=== PATIENT | male | born 1980 | race Caucasian/White ===

== ENCOUNTER 2018-06-12 02:18 | Outpatient (CLI) | payer MEDICAID, SELFPAY ==
[2018-06-13 14:10] LABS: Lyme Ab w Rflx to Lyme Confirm Negative
== END 2018-06-12 02:38 ==
PROVIDERS: PCP Family Medicine; Visit Provider Family Medicine
DX: W57.XXXA Bitten or stung by nonvenomous insect and other nonvenomous arthropods, initial encounter (principal); T14.8XXA Other injury of unspecified body region, initial encounter
CPT/HCPCS: 36415; 86618

== ENCOUNTER 2019-10-12 00:10 | Outpatient (CLI) | payer MEDICAID, SELFPAY ==
[2019-10-16 12:46] LABS: Testosterone, Total 114 ng/dL (240-950)
== END 2019-10-12 00:30 ==
PROVIDERS: PCP Family Medicine; Visit Provider Family Medicine
DX: E29.1 Testicular hypofunction (principal)
CPT/HCPCS: 36415; 84403

== ENCOUNTER 2019-11-12 09:02 | Outpatient (CLI) | payer MEDICAID, SELFPAY ==
[2019-11-15 07:39] LABS: Testosterone, Total 328 ng/dL (240-950)
== END 2019-11-12 09:22 ==
PROVIDERS: PCP Family Medicine; Visit Provider Family Medicine
DX: E29.1 Testicular hypofunction (principal)
CPT/HCPCS: 36415; 84403

== ENCOUNTER 2020-07-03 04:04 | Outpatient (CLI) | payer MEDICAID, SELFPAY ==
[2020-07-03 07:23] LABS: HCT 46.5 % (40.0-50.0); HGB 15.9 g/dL (13.5-17.5); MCH 31.4 pg (27.0-33.0); MCHC 34.2 % (32.0-36.0); MCV 91.7 fL (80-95); MPV 9.5 fL (8.0-11.0); Platelet Count 221 10^3/uL (130-400); RBC 5.07 10^6/uL (4.36-5.78); RDW 13.5 % (11.8-14.1); RDW-SD 45.1 fL; WBC 7.14 10^3/uL (4.4-10.8)
[2020-07-03 08:52] LABS: ALT 70 U/L (16-63); AST 40 U/L (15-37); Alkaline Phosphatase 99 U/L (46-116); Anion Gap 9.3 mmol/L (3-11); BUN 19 mg/dL (7-18); Bilirubin, Total 0.4 mg/dL (0.2-1.0); CO2 27.7 mmol/L (21.0-32.0); CREATININE 1.29 mg/dL (0.70-1.30); Calcium 9.3 mg/dL (8.5-10.1); Calculated LDL 163 mg/dL (<100); Chloride 101 mmol/L (98-107); Cholesterol 274 mg/dL (<200); Glucose 70 mg/dL (74-106); HDL Cholesterol 43 mg/dL (40-60); Potassium 4.2 mmol/L (3.5-5.1); Sodium 138 mmol/L (136-145); Total Protein 7.3 g/dL (6.4-8.2); Triglyceride 340 mg/dL (<150)
[2020-07-03 18:55] LABS: PSA, Screening 0.8 ng/mL (0.0-2.5)
[2020-07-05 13:25] LABS: Testosterone, Total 143 ng/dL (240-950)
== END 2020-07-03 04:24 ==
PROVIDERS: PCP Family Medicine; Visit Provider Family Medicine
DX: I10 Essential (primary) hypertension (principal); E29.1 Testicular hypofunction; Z80.42 Family history of malignant neoplasm of prostate; Z12.5 Encounter for screening for malignant neoplasm of prostate
CPT/HCPCS: 36415; 80053; 80061; 84153; 84403; 85027

== ENCOUNTER 2020-09-17 08:06 | Outpatient (CLI) | payer MEDICAID, SELFPAY ==
[2020-09-18 14:42] LABS: COVID-19 RT-PCR UVMMC Result Negative (Negative)
== END 2020-09-17 08:26 ==
PROVIDERS: PCP Family Medicine; Visit Provider Family Medicine
DX: Z20.828 Contact with and (suspected) exposure to other viral communicable diseases (principal)
CPT/HCPCS: U0003

== ENCOUNTER 2020-10-20 09:30 | Outpatient (CLI) | payer MEDICAID, SELFPAY ==
[2020-10-21 15:50] LABS: COVID-19 RT-PCR UVMMC Result Negative (Negative)
== END 2020-10-20 09:31 | disposition home or self-care (01) ==
LOC: LBO 09:30
PROVIDERS: PCP Family Medicine; Visit Provider Family Medicine
DX: Z20.822 Contact with and (suspected) exposure to COVID-19 (principal)
CPT/HCPCS: U0003

== ENCOUNTER 2020-10-24 02:58 | Outpatient (CLI) | payer MEDICAID, SELFPAY ==
--- NOTE | 2020-10-24 06:30 | DI.RAD_ITS ---
EXAM: XR CHEST 2V PA LATERAL CLINICAL HISTORY: Cough, wheezing; COVID negative,ACUTE BRONCHITIS, J20.9 TECHNIQUE: 2D digital imaging was performed. COMPARISON: CT CHEST WITH CONTRAST from 05/12/2016 FINDINGS: MEDIASTINUM: Normal. HEART: Normal. PULMONARY VASCULATURE: Normal. LUNGS: Clear. PLEURAL SPACE: No pleural effusion or pneumothorax. BONE:Normal. OTHER FINDINGS:Normal. IMPRESSION: No acute pulmonary findings. DATA REPOSITORY: RADIATION DOSE DELIVERED:
== END 2020-10-24 02:59 ==
LOC: DI 02:59
PROVIDERS: PCP Family Medicine; Visit Provider Family Medicine
DX: J20.9 Acute bronchitis, unspecified (principal); R05 Cough; R06.02 Shortness of breath
CPT/HCPCS: 71046

== ENCOUNTER 2020-11-06 18:34 | Emergency (ER) | payer MEDICAID, SELFPAY ==
[2020-11-06 18:37] VITALS: BP 152/90; PULSE 117; RESP 18; TEMP 36.6; O2SAT 96
--- NOTE | 2020-11-06 19:16 | W.ED.GENAD ---
Discharge Plan Disposition Patient Disposition: HOME Condition: Good Discharge Details Clinical Impression: Cellulitis Primary Care Provider: Benigno Schroeder ED Provider: Amrita Quan Home Meds and New Rx's Prescriptions: New doxycycline monohydrate 100 mg capsule 100 mg PO BID Qty: 6 RF: 0 No Action valsartan 80 mg tablet 80 mg PO DAILY Qty: 30 RF: 11 azithromycin 500 mg tablet See Rx Instructions PO .COMPLEX Qty: 5 RF: 0 amoxicillin 500 mg capsule 1,000 mg PO TID Qty: 42 RF: 0 doxycycline hyclate 100 mg capsule 100 mg PO BID Qty: 14 RF: 0 albuterol sulfate [Proventil HFA] 90 mcg/actuation HFA aerosol inhaler 2 puff inhalation Q6H PRN (Reason: shortness of breath or wheezing) Qty: 8.5 RF: 0 nicotine (polacrilex) 2 mg gum 2 mg BC Q2H Qty: 50 RF: 0 fluticasone propionate 50 mcg/actuation spray,suspension 2 spray JESSE DAILY PRN (Reason: allergy symptoms) Qty: 18.2 RF: 2 atorvastatin 20 mg tablet 20 mg PO QHS Qty: 30 RF: 11 methadone 10 mg/mL concentrate 55 mg PO DAILY RF: 0 nicotine 21 mg/24 hr patch 24 hour 1 patch TD DAILY Qty: 28 RF: 1 albuterol sulfate [ProAir HFA] 90 mcg/actuation HFA aerosol inhaler 2 puff Inhalation Q6H PRN Qty: 1 RF: 4 sildenafil [Viagra] 100 mg tablet 100 mg PO As Directed Qty: 3 RF: 1 (DME) Easy Touch SheathLock Syrg-Ndl 3 mL 22 gauge x 1 1/2 syringe See Rx Instructions .ROUTE .MEDSUPPLY Qty: 6 RF: 3 testosterone cypionate 200 mg/mL oil 300 mg IM .COMPLEX Qty: 3 RF: 5 (DME) BD Regular Bevel Cubero 25 gauge x 5/8 needle See Rx Instructions .ROUTE .MEDSUPPLY Qty: 100 RF: 4 omeprazole 20 mg capsule,delayed release(DR/EC) 20 mg PO DAILY Qty: 90 RF: 3 Discharge Instructions Instructions: Cellulitis (ED) Additional Instructions: warm compresses 20 min/hr elevate leg and refrain from using recheck in 48 hours take antibiotics as prescribed (current) extend the doxycycline for 10 days yogurt daily while on antibiotics return earlier with spreading redness, fever, worsening pain tylenol as needed for pain Stand Alone Forms: Work Release Discharge Data Discharge Date/Time-TO BE ENTERED AT DEPARTURE: 11/06/20 19:35 Medical Decision Making Patient is quite anxious, and I suspect this is why he is tachycardic, 1 and 1 there is prior vitals, he is occasionally tachycardic I do not think this is related to sepsis or pulmonary embolism clinically Patient is not hypoxic, he has no chest pain or short of breath And interactive temperature in 2 separate occasions and it was 99.1 ?F max He is currently taking doxycycline 1, bronchitis I clinically appropriate treatment Aortic stenosis 70 to 10 days and he will follow complex 48-hour recheck On his medication for approximately 24 hours Work note applied for 2 days but should not be weightbearing and elevating his leg Return to discuss with patient extensively standing 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 HPI 40-year-old gentleman with history of arthritis, hypertension, hyperlipidemia and left hip posterolateral presents with report of left lower extremity swelling. Patient states he injected his difficulty with testosterone on Tuesday he states but there was no issue until today after his dog jumped on him. He states that while he was at work he started noticing a large lump on his thigh and significantly increased pain and redness to the area. He denies any fever or chills. He denies history of diabetes. He denies any chest pain or shortness of breath. He did take aspirin prior to arrival for pain. He also forgot Narcan today. He is currently taking methadone denies any illicit drug use. General Date/Time Provider Initiated Documentation: 11/06/20 18:45. Related Data Home Medications Medication Instructions Recorded Confirmed methadone 10 mg/mL oral concentrate 55 mg PO DAILY ml 10/13/18 11/04/20 nicotine 21 mg/24 hr daily 1 patch TD DAILY #28 each 04/20/19 11/04/20 transdermal patch nicotine (polacrilex) 2 mg gum 2 mg BC Q2H #50 each 08/07/19 11/04/20 fluticasone propionate 50 2 spray JESSE DAILY PRN #18.2 ml 10/29/19 11/04/20 mcg/actuation nasal spray,suspension albuterol sulfate 90 mcg/actuation 2 puff INHALATION Q6H PRN #1 10/31/19 11/04/20 aerosol inhaler inhaler valsartan 80 mg tablet 80 mg PO DAILY #30 tab 06/23/20 11/04/20 atorvastatin 20 mg tablet 20 mg PO QHS #30 tab 07/28/20 11/04/20 sildenafil 100 mg tablet 100 mg PO As Directed #3 tab-cap 09/08/20 11/04/20 syringe with needle, safety 3 mL #6 each 09/09/20 11/04/20 22 gauge x 1 1/2 testosterone cypionate 200 mg/mL 300 mg IM .COMPLEX #3 ml 09/09/20 11/06/20 intramuscular oil needle (disp) 25 gauge 25 gauge x #100 each 09/11/20 11/04/20 5/8 omeprazole 20 mg capsule,delayed 20 mg PO DAILY #90 tab-cap 09/19/20 11/04/20 release azithromycin 500 mg tablet See Rx Instructions PO .COMPLEX #5 10/23/20 11/04/20 tab albuterol sulfate 90 mcg/actuation 2 puff INHALATION Q6H PRN #8.5 g 11/04/20 11/04/20 aerosol inhaler amoxicillin 500 mg capsule 1,000 mg PO TID #42 cap 11/04/20 11/06/20 doxycycline hyclate 100 mg capsule 100 mg PO BID #14 cap 11/04/20 11/06/20 doxycycline monohydrate 100 mg PO BID #6 cap 11/06/20 Previous Rx's Medication Instructions Recorded nicotine 21 mg/24 hr daily 1 patch TD DAILY #28 each 04/20/19 transdermal patch nicotine (polacrilex) 2 mg gum 2 mg BC Q2H #50 each 08/07/19 fluticasone propionate 50 2 spray JESSE DAILY PRN #18.2 ml 10/29/19 mcg/actuation nasal spray,suspension albuterol sulfate 90 mcg/actuation 2 puff INHALATION Q6H PRN #1 10/31/19 aerosol inhaler inhaler valsartan 80 mg tablet 80 mg PO DAILY #30 tab 06/23/20 atorvastatin 20 mg tablet 20 mg PO QHS #30 tab 07/28/20 sildenafil 100 mg tablet 100 mg PO As Directed #3 tab-cap 09/08/20 syringe with needle, safety 3 mL #6 each 09/09/20 22 gauge x 1 1/2 testosterone cypionate 200 mg/mL 300 mg IM .COMPLEX #3 ml 09/09/20 intramuscular oil needle (disp) 25 gauge 25 gauge x #100 each 09/11/20 5/8 omeprazole 20 mg capsule,delayed 20 mg PO DAILY #90 tab-cap 09/19/20 release azithromycin 500 mg tablet See Rx Instructions PO .COMPLEX #5 10/23/20 tab albuterol sulfate 90 mcg/actuation 2 puff INHALATION Q6H PRN #8.5 g 11/04/20 aerosol inhaler amoxicillin 500 mg capsule 1,000 mg PO TID #42 cap 11/04/20 doxycycline hyclate 100 mg capsule 100 mg PO BID #14 cap 11/04/20 doxycycline monohydrate 100 mg PO BID #6 cap 11/06/20 Allergies Allergy/AdvReac Type Severity Reaction Status Date / Time amlodipine Allergy Intermediate Drowsiness, Verified 11/06/20 18:45 chest pain lisinopril AdvReac Intermediate Cough Verified 11/06/20 18:45 General Stated Complaint: Cellulitis DUNG: 3 Review of Systems Narrative: Review of systems negative x7 aside from where indicated in HPI, specifically no fever, chills, chest pain, shortness of breath [facility] Medical History (Updated 11/06/20 @ 19:23 by BRISA Vanegas) Acute bronchitis Allergic rhinitis Depressive disorder Episodic cluster headache, not intractable (07/26/17) Essential hypertension (04/12/17) Gastroesophageal reflux disease without esophagitis (03/30/16) Hyperhidrosis Murmur, cardiac Congenital Symptoms of allergic rhinioconjunctivitis Testicular hypofunction (05/26/12) Testosterone deficiency in male Tobacco dependence Surgical History Appendectomy Pts states year or surgery was 2007 or 2008 EXCISION MASS, LIF H/O hand surgery Hx of tonsillectomy PROCEDURES OTHER REPAIR OF KNEE, 1998 Family History Mother Heart disease Father , age 70 Essential hypertension Diabetes Hyperlipidemia Lung cancer Sister Diabetes Brother Testicular cancer Maternal Grandfather Throat cancer Paternal Grandfather Diabetes Maternal Grandmother No problems noted. Paternal Grandmother Breast cancer Sister No problems noted. Social History Smoking/Tobacco Use Status: Current every day Tobacco Type: smokeless tobacco Smokeless tobacco user: chewing tobacco Quit status: considering quitting Second Hand Exposure: Yes Smoking risk assessment performed?: Yes Alcohol Intake: current Alcohol Intake frequency: a few times a week Drug use: Current Sobriety Substance use type: does not use and other Details: Methadone rx Details: methadone client Caregiver/Support person: No Household members: other Details: Mother Housing: house Communication Needs: None Do you need help understanding health information?: Never current occupation: [employer] Pets and animals: Yes Pets and animals: dog(s) Do you think of yourself as: straight/heterosexual Current gender identity: male What is your relationship status?: never How often do you talk on the phone with friends or family?: three or more times per week How often do you get together with friends or relatives?: twice per week How often do you attend jain or church services?: decline to answer Do you belong to any clubs or organized social groups?: no Panel score (0-1 are the most socially isolated patients): 1 What type of physical activity do you participate in: none Duration: 15-30 minutes/day Frequency: 5-6 times per week Korina/Scientologist: Rastafari Special korina needs: No Seatbelt use: always Helmet use: Yes Helmet use: always 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 Approximately 6 x 6 area of induration and swelling with overlying pink discoloration, ecchymosis medially Extrem Other: Distal pulses intact/neurovascularly intact Course Vital Signs Vital signs: Vital Signs Temperature 36.6 C 02/25/21 18:37 Pulse 117 H 11/06/20 18:37 Respiratory Rate 18 11/06/20 18:37 Blood Pressure 152/90 H 11/06/20 18:37 Pulse Oximetry 96 11/06/20 18:37 Temperature 36.6 C 11/06/20 18:37 Temperature Source Skin 11/06/20 18:37 Pulse 117 H 11/06/20 18:37 Respiratory Rate 18 11/06/20 18:37 Respiratory Effort 11/06/20 18:43 Blood Pressure 152/90 H 11/06/20 18:37 Blood Pressure Position Sitting 11/06/20 18:37 Pulse Oximetry 96 11/06/20 18:37 Oxygen Delivery Method Room Air 11/06/20 18:37 Oxygen Flow Rate 0 11/06/20 18:37 Pain Level 7 11/06/20 18:37 Comment excedrin earlier today 11/06/20 18:37
[2020-11-06 19:28] VITALS: BP 148/89; PULSE 111; RESP 16; TEMP 36.5; O2SAT 95
== END 2020-11-06 19:35 | disposition home or self-care (01) ==
PROVIDERS: Emergency Provider Physician Assistant; PCP Family Medicine
DX: L03.116 Cellulitis of left lower limb (principal); R00.0 Tachycardia, unspecified
CPT/HCPCS: 99283

== ENCOUNTER 2021-01-02 10:06 | Outpatient (CLI) | payer MEDICAID, SELFPAY ==
[2021-01-03 12:23] LABS: COVID-19 RT-PCR UVMMC Result Negative (Negative)
== END 2021-01-02 10:07 | disposition home or self-care (01) ==
PROVIDERS: PCP Family Medicine; Visit Provider Family Medicine
DX: Z20.822 Contact with and (suspected) exposure to COVID-19 (principal); R50.9 Fever, unspecified; R68.83 Chills (without fever)
CPT/HCPCS: U0003

== ENCOUNTER 2021-01-21 03:09 | Outpatient (CLI) | payer MEDICAID, SELFPAY ==
[2021-01-21 11:23] LABS: ALT 64 U/L (16-63); AST 24 U/L (15-37); Albumin 4.2 g/dL (3.4-5.0); Alkaline Phosphatase 111 U/L (46-116); Bilirubin, Direct 0.1 mg/dL (0.0-0.2); Bilirubin, Total 0.7 mg/dL (0.2-1.0); Total Protein 7.6 g/dL (6.4-8.2)
[2021-01-21 11:34] LABS: Calculated LDL 208 mg/dL (<100); Cholesterol 308 mg/dL (<200); HDL Cholesterol 58 mg/dL (40-60); Triglyceride 213 mg/dL (<150)
== END 2021-01-21 03:10 | disposition home or self-care (01) ==
LOC: LBO 03:09
PROVIDERS: PCP Family Medicine; Visit Provider Family Medicine
DX: E78.5 Hyperlipidemia, unspecified (principal); R79.89 Other specified abnormal findings of blood chemistry
CPT/HCPCS: 36415; 80061; 80076

== ENCOUNTER 2021-01-29 14:18 | Outpatient (CLI) | payer MEDICAID, SELFPAY ==
--- NOTE | 2021-01-29 14:15 | RT.EKG_ITS ---
APPROVED REPORT Exam: Resting ECG Reason for Exam: High BP Patient Location: O HR:105 bpm ECG Measurements Heart Rate 105 AXIS IL 144 P 69 QRSd 99 QRS 38 QT 337 T 31 QTc 446 Conclusion Sinus tachycardia...rate> 99 Consider left ventricular hypertrophy...(S V1+R V5/V6) >3.50mV
== END 2021-01-29 14:19 | disposition home or self-care (01) ==
LOC: DI.CM 14:19
PROVIDERS: PCP Nurse Practitioner; Visit Provider Nurse Practitioner Family
DX: J06.9 Acute upper respiratory infection, unspecified (principal)
CPT/HCPCS: 93010

== ENCOUNTER 2021-01-29 15:20 | Emergency (ER) | payer MEDICAID, SELFPAY ==
[2021-01-29] VITALS (37 sets, daily range): BP systolic 138–167; BP diastolic 81–137; PULSE 86–114; RESP 12–27; TEMP 36.5–37.2; O2SAT 93–98
--- NOTE | 2021-01-29 15:40 | W.ED.GENAD ---
Discharge Plan Disposition Patient Disposition: AGAINST MEDICAL ADVICE Condition: Stable Discharge Details Clinical Impression: Multifocal pneumonia, Bandemia Primary Care Provider: Marie Loza ED Provider: Riana Reddy Home Meds and New Rx's Prescriptions: New prednisone 20 mg tablet See Rx Instructions .ROUTE .COMPLEX Qty: 12 RF: 0 amoxicillin-pot clavulanate [Augmentin] 875-125 mg tablet 1 tab PO BID 7 Days Qty: 14 RF: 0 doxycycline hyclate 100 mg tablet 100 mg PO BID 7 Days Qty: 14 RF: 0 Continued sildenafil [Viagra] 100 mg tablet 100 mg PO As Directed Qty: 3 RF: 11 fluticasone propionate 50 mcg/actuation spray,suspension 2 spray JESSE DAILY PRN (Reason: allergy symptoms) Qty: 18.2 RF: 2 valsartan 80 mg tablet 80 mg PO DAILY Qty: 90 RF: 4 naproxen 500 mg tablet 500 mg PO BID Qty: 60 RF: 0 albuterol sulfate [Proventil HFA] 90 mcg/actuation HFA aerosol inhaler 2 puff inhalation Q6H PRN (Reason: shortness of breath or wheezing) Qty: 8.5 RF: 0 methadone 10 mg/mL concentrate 55 mg PO DAILY RF: 0 (DME) Easy Touch SheathLock Syrg-Ndl 3 mL 22 gauge x 1 1/2 syringe See Rx Instructions .ROUTE .MEDSUPPLY Qty: 6 RF: 3 testosterone cypionate 200 mg/mL oil 300 mg IM .COMPLEX Qty: 3 RF: 5 (DME) BD Regular Bevel [place] 25 gauge x 5/8 needle See Rx Instructions .ROUTE .MEDSUPPLY Qty: 100 RF: 4 omeprazole 20 mg capsule,delayed release(DR/EC) 20 mg PO DAILY Qty: 90 RF: 3 atorvastatin 80 mg tablet 100 mg PO QPM RF: 0 Discharge Instructions Instructions: Pneumonia (ED) Additional Instructions: Drink plenty of fluids and get plenty of rest. Your prescriptions have been sent electronically to your pharmacy. Call the pharmacy to make sure your prescriptions are ready before pickup. Take the prescriptions as directed. Call your primary care doctor's office tomorrow morning to schedule a follow-up appointment for reevaluation tomorrow, and if not at the latest by Tuesday. Return immediately to the emergency department with any worsening or new concerning symptoms. Discharge Data Discharge Date/Time-TO BE ENTERED AT DEPARTURE: 01/29/21 18:55 Discharge Physician: Riana Reddy Medical Decision Making 40-year-old male with a history of obesity, hypertension, hyperlipidemia, chewing tobacco use presents for cough with blood-tinged yellow sputum, shortness of breath, body aches, fever and chills for the past few days. He was sent by [facility] for further evaluation. He was also noted to have hypertension at the [facility] office. Blood pressure here on arrival 163/99. He did take his losartan this morning but thinks he may have taken a smaller dose than usual. His temp was 102 rectal [facility] is 97.7 here. He had 400 mg of ibuprofen over 2 hours ago. He has scattered rhonchi but no wheezing. His oxygen saturation is 90 to 93% on room air. Differential diagnosis includes pneumonia, COVID-19, bronchitis, PE, viral syndrome. Will place an IV, bolus IV fluids, Covid swab, screening labs, EKG, CT chest to rule out PE. Will give a DuoNeb, IV Tylenol and Toradol and reassess. Labs reviewed. White blood cell count elevated at 14. 3 bands. Troponin negative. Mild elevation of LFTs which has been seen previously. CT reviewed and notes multifocal pneumonia. COVID swab here negative but covid pneumonia a possibility. Discussed with patient at bedside that I recommend admission for IV antibiotics, fluids, neb and steroids. Patient is refusing admission and states he would prefer to take oral antibiotics at home. The risks of and disability due to potential worsening condition or missed diagnoses explained and patient fully understands. He demonstrates capacity make decisions. AMA form signed. We will give a dose of Augmentin and Cipro p.o. here. Patient was advised to call [facility] tomorrow for follow-up tomorrow or Tuesday at the latest. He is advised to return here immediately with any worsening or new concerning symptoms. Prescriptions for Augmentin, doxycycline and steroid sent electronically to his pharmacy. Usual and customary return precautions given prior to discharge. Medical Records Medical records reviewed: Yes I reviewed the patient's medical records. Imaging Data Radiologic Study: Radiologist's impression: CTA Chest With Contrast Exam date and time: 01/29/2021 17:32 Age: 40 years old Clinical indication: Pain; Other: Cough so R/O pe pneumonia TECHNIQUE: Imaging protocol: Computed tomographic angiography of the chest with contrast. 3D rendering (Not supervised by radiologist): MIP and/or 3D reconstructed images were created by the technologist. COMPARISON: CT CHEST WITH CONTRAST 05/12/2016 12:59 FINDINGS: Pulmonary arteries: Suboptimal contrast bolus into the pulmonary arteries with no main or lobar embolus, and no large segmental embolus. Aorta: No aortic aneurysm. No aortic dissection. Lungs: New, moderate airspace consolidation throughout both lower lobes as well as minor airspace consolidation in the right upper, right middle lobes and lingula. There are scattered surrounding centrilobular pattern nodules also most consistent with infection. Pleural spaces: No significant pleural fluid. No pneumothorax. Heart: Trace pericardial fluid appears likely physiologic. No significant cardiomegaly. Lymph nodes: No enlarged lymph nodes. Bones/joints: No acute fracture. Soft tissues: No suspicious lesions.? IMPRESSION: 1. Moderate multilobar pneumonia. 2. Suboptimal contrast bolus with no significant pulmonary embolus. Lab Data Lab results reviewed: Yes I reviewed the patient's lab results. Labs: Laboratory Tests Range/Units 01/29/21 01/29/21 01/29/21 15:45 15:45 15:45 WBC (4.4-10.8) 10^3/uL 14.16 H RBC (4.36-5.78) 10^6/uL 4.67 Hgb (13.5-17.5) g/dL 14.6 Hct (40.0-50.0) % 40.5 MCV (80-95) fL 86.7 MCH (27.0-33.0) pg 31.3 MCHC (32.0-36.0) % 36.0 RDW (11.8-14.1) % 12.9 Plt Count (130-400) 10^3/uL 221 MPV (8.0-11.0) fL 9.7 Immature Gran % See Differential Neutrophils % 77.0 Band Neutrophils % 3 Lymphocytes % 9.0 Atypical Lymphs % 0 Monocytes % 8.0 Eosinophils % 1.0 Basophils % 0.0 Metamyelocytes % 2 Nucleated RBC % % 0 Absolute Neutrophils (1.2-6.7) 10^3/uL 11.33 H Absolute Lymphocytes (1.2-3.4) 10^3/uL 1.27 Absolute Monocytes (0.1-0.8) 10^3/uL 1.13 H Absolute Eosinophils (0.0-0.7) 10^3/uL 0.14 Absolute Basophils (0.0-0.2) 10^3/uL 0.00 RBC Morphology Normal PT (9.3-11.0) sec 9.3 INR (0.9-1.1) 0.9 APTT (21.0-27.5) sec 25.0 Sodium (136-145) mmol/L 138 Potassium (3.5-5.1) mmol/L 3.8 Chloride (98-107) mmol/L 100 Carbon Dioxide (21.0-32.0) mmol/L 26.4 Anion Gap (3-11) mmol/L 11.6 H BUN (7-18) mg/dL 13 Creatinine (0.70-1.30) mg/dL 1.1 Estimated GFR/1.73 m2 (mL/min/1.73m2) >= 60.00 Glucose (74-106) mg/dL 95 Calcium (8.5-10.1) mg/dL 10.1 Magnesium (1.8-2.4) mg/dL 2.0 Total Bilirubin (0.2-1.0) mg/dL 0.5 AST (15-37) U/L 42 H ALT (16-63) U/L 88 H Alkaline Phosphatase (46-116) U/L 134 H Troponin I (<0.06) ng/mL < 0.05 Total Protein (6.4-8.2) g/dL 8.2 Albumin (3.4-5.0) g/dL 3.4 COVID-19 Source SARS-CoV-2 (PCR) (Negative) Range/Units 01/29/21 15:55 WBC (4.4-10.8) 10^3/uL RBC (4.36-5.78) 10^6/uL Hgb (13.5-17.5) g/dL Hct (40.0-50.0) % MCV (80-95) fL MCH (27.0-33.0) pg MCHC (32.0-36.0) % RDW (11.8-14.1) % Plt Count (130-400) 10^3/uL MPV (8.0-11.0) fL Immature Gran % Neutrophils % Band Neutrophils % Lymphocytes % Atypical Lymphs % Monocytes % Eosinophils % Basophils % Metamyelocytes % Nucleated RBC % % Absolute Neutrophils (1.2-6.7) 10^3/uL Absolute Lymphocytes (1.2-3.4) 10^3/uL Absolute Monocytes (0.1-0.8) 10^3/uL Absolute Eosinophils (0.0-0.7) 10^3/uL Absolute Basophils (0.0-0.2) 10^3/uL RBC Morphology PT (9.3-11.0) sec INR (0.9-1.1) APTT (21.0-27.5) sec Sodium (136-145) mmol/L Potassium (3.5-5.1) mmol/L Chloride (98-107) mmol/L Carbon Dioxide (21.0-32.0) mmol/L Anion Gap (3-11) mmol/L BUN (7-18) mg/dL Creatinine (0.70-1.30) mg/dL Estimated GFR/1.73 m2 (mL/min/1.73m2) Glucose (74-106) mg/dL Calcium (8.5-10.1) mg/dL Magnesium (1.8-2.4) mg/dL Total Bilirubin (0.2-1.0) mg/dL AST (15-37) U/L ALT (16-63) U/L Alkaline Phosphatase (46-116) U/L Troponin I (<0.06) ng/mL Total Protein (6.4-8.2) g/dL Albumin (3.4-5.0) g/dL COVID-19 Source Nasopharyx SARS-CoV-2 (PCR) (Negative) Negative ECG Data Attestation: I personally reviewed and interpreted this ECG (s) as follows: Interpretation: rate of 93, sinus, no acute ST elevation or depression. MI 145. QTc 435. HPI General Mode of arrival: ambulatory. Date/Time Provider Initiated Documentation: 01/29/21 15:35. Limitations to Documentation: no limitations. Information obtained by: patient. HPI Narrative: Labs and patient is a 40-year-old male with a history of obesity, GERD, hypertension, hyperlipidemia, occasional smoking tobacco but usually chews tobacco presents for cough, shortness of breath, body aches, fever, chills for the past few days. Patient states he has been coughing up yellow sputum and for the past 2 days has coughed up bright red blood mixed with yellow sputum. He states he is mainly short of breath with exertion. He admits to occasional anterior chest pain with coughing but not at present. He states he has checked his temperature at home and it has been 99 but when he went to the [facility] today they did a rectal temperature which was 102. He states he last took 400 mg of ibuprofen 2 hours ago. He has not taken any Tylenol today. He states he went to the [facility] today for his symptoms and they also noted that he had high blood pressure. He states that the shortness of breath and body aches are bothering him the most. He does admit to some headache but denies any neck pain. He also does admit to loss of sense of smell and taste but states he had his first Covid vaccine earlier this month and denies any known Covid exposures. Related Data Home Medications Medication Instructions Recorded Confirmed methadone 10 mg/mL oral concentrate 55 mg PO DAILY ml 10/13/18 01/29/21 syringe with needle, safety 3 mL #6 each 09/09/20 01/29/21 22 gauge x 1 1/2 testosterone cypionate 200 mg/mL 300 mg IM .COMPLEX #3 ml 09/09/20 01/29/21 intramuscular oil needle (disp) 25 gauge 25 gauge x #100 each 09/11/20 01/29/21 5/8 omeprazole 20 mg capsule,delayed 20 mg PO DAILY #90 tab-cap 09/19/20 01/29/21 release albuterol sulfate 90 mcg/actuation 2 puff INHALATION Q6H PRN #8.5 g 11/04/20 01/29/21 aerosol inhaler fluticasone propionate 50 2 spray JESSE DAILY PRN #18.2 ml 01/23/21 01/29/21 mcg/actuation nasal spray,suspension naproxen 500 mg tablet 500 mg PO BID #60 tab 01/23/21 01/29/21 sildenafil 100 mg tablet 100 mg PO As Directed #3 tab-cap 01/23/21 01/29/21 valsartan 80 mg tablet 80 mg PO DAILY #90 tab 01/23/21 01/29/21 amoxicillin-pot clavulanate 1 tab PO BID 7 Days #14 tab 01/29/21 [Augmentin] atorvastatin 100 mg PO QPM 01/29/21 01/29/21 doxycycline hyclate 100 mg PO BID 7 Days #14 tab 01/29/21 prednisone See Rx Instructions .ROUTE 01/29/21 .COMPLEX #12 tab Previous Rx's Medication Instructions Recorded syringe with needle, safety 3 mL #6 each 09/09/20 22 gauge x 1 1/2 testosterone cypionate 200 mg/mL 300 mg IM .COMPLEX #3 ml 09/09/20 intramuscular oil needle (disp) 25 gauge 25 gauge x #100 each 09/11/20 5/8 omeprazole 20 mg capsule,delayed 20 mg PO DAILY #90 tab-cap 09/19/20 release albuterol sulfate 90 mcg/actuation 2 puff INHALATION Q6H PRN #8.5 g 11/04/20 aerosol inhaler fluticasone propionate 50 2 spray JESSE DAILY PRN #18.2 ml 01/23/21 mcg/actuation nasal spray,suspension naproxen 500 mg tablet 500 mg PO BID #60 tab 01/23/21 sildenafil 100 mg tablet 100 mg PO As Directed #3 tab-cap 01/23/21 valsartan 80 mg tablet 80 mg PO DAILY #90 tab 01/23/21 amoxicillin-pot clavulanate 1 tab PO BID 7 Days #14 tab 01/29/21 [Augmentin] doxycycline hyclate 100 mg PO BID 7 Days #14 tab 01/29/21 prednisone See Rx Instructions .ROUTE 01/29/21 .COMPLEX #12 tab Allergies Allergy/AdvReac Type Severity Reaction Status Date / Time amlodipine Allergy Intermediate Drowsiness, Verified 01/29/21 15:38 chest pain lisinopril AdvReac Intermediate Cough Verified 01/29/21 15:38 General Stated Complaint: RespSymp DUNG: 2 Review of Systems All systems reviewed & are unremarkable except as noted in HPI and below Constitutional Constitutional: Reports as per HPI, Reports body ache(s), Reports chills, Reports fatigue, Reports fever(s), Reports headache(s) and Reports poor appetite Eyes Eyes: Denies blurry vision ENT Ears, Nose, Mouth, and Throat: Denies dizziness, Reports headache(s), Denies sore throat and Denies throat swelling Cardiovascular Cardiovascular: Reports chest pain and Reports dyspnea Respiratory Respiratory: Reports cough and Reports dyspnea Gastrointestinal Gastrointestinal: Denies abdominal pain, Denies diarrhea and Denies vomiting Genitourinary Genitourinary: Denies hematuria and Denies dysuria Musculoskeletal Musculoskeletal: Denies back pain and Denies numbness Integumentary/Breasts Skin/Breast: Denies lesions and Denies rash Neurologic Neurologic: Denies dizziness, Reports headache(s), Denies localized weakness and Denies numbness Endocrine Endocrine: Reports fatigue Allergic/Immunologic Allergic/Immunologic: Denies throat swelling [facility] Medical History Allergic rhinitis Depressive disorder Episodic cluster headache, not intractable (07/26/17) Essential hypertension (04/12/17) Gastroesophageal reflux disease without esophagitis (03/30/16) Hyperhidrosis Murmur, cardiac Congenital Testicular hypofunction (05/26/12) Testosterone deficiency in male Tobacco dependence Surgical History Appendectomy Pts states year or surgery was 2007 or 2008 EXCISION MASS, LIF H/O hand surgery Hx of tonsillectomy PROCEDURES OTHER REPAIR OF KNEE, 1998 Family History Mother Heart disease Father , age 70 Essential hypertension Diabetes Hyperlipidemia Lung cancer Sister Diabetes Brother Testicular cancer Maternal Grandfather Throat cancer Paternal Grandfather Diabetes Maternal Grandmother No problems noted. Paternal Grandmother Breast cancer Sister No problems noted. Social History Smoking/Tobacco Use Status: Current every day Tobacco Type: smokeless tobacco Smokeless tobacco user: chewing tobacco Second Hand Exposure: Yes Smoking risk assessment performed?: Yes Alcohol Intake: current Alcohol Intake frequency: a few times a week Drug use: Occasionally Substance use type: crack/cocaine and other Details: Methadone rx Details: methadone client Caregiver/Support person: No Household members: other Details: Mother Housing: house Communication Needs: None Do you need help understanding health information?: Never current occupation: [employer] Pets and animals: Yes Pets and animals: dog(s) Do you think of yourself as: straight/heterosexual Current gender identity: male What is your relationship status?: never How often do you talk on the phone with friends or family?: three or more times per week How often do you get together with friends or relatives?: twice per week How often do you attend oriental orthodox or jehovah's witness services?: decline to answer Do you belong to any clubs or organized social groups?: no Panel score (0-1 are the most socially isolated patients): 1 What type of physical activity do you participate in: none Duration: 15-30 minutes/day Frequency: 5-6 times per week Korina/Christianity: Temple Special korina needs: No Seatbelt use: always Helmet use: Yes Helmet use: always Drive intox or ride w/intox motor coach bus driver: No Do you feel safe at home: Yes Do you feel safe in your relationship?: Yes Exam Const General: cooperative and no acute distress Orientation: alert, awake and oriented x3 HENMT Head: normal to inspection Ears: hearing grossly normal bilaterally, external ears normal and TM's normal bilaterally General nose exam: external nose normal Face and sinus: normal facial exam Mouth: oral mucosae normal Throat: posterior oropharynx normal Eyes General: appearance normal, both eyes and all related structures Pupils: PERRL EOM: EOM intact bilaterally Neck Neck: normal visual inspection and No submandibular swelling Lymphatic: no lymphadenopathy noted Chest Chest: normal inspection of the chest and no tenderness Resp Effort & Inspection: normal respiratory effort and able to speak in complete sentences Auscultation: clear to auscultation bilaterally, rhonchi (Minimal scattered) and no wheezes Cardio Rate: regular rate Rhythm: regular rhythm GI Inspection: normal to inspection and obesity Palpation: soft, not firm, not rigid and nontender Auscultation: normal bowel sounds Skin General skin exam: no rashes or lesions noted Neuro General: patient alert, patient awake and patient oriented x3 Cognition: normal cognition Speech: speech normal Motor: muscle tone normal throughout Sensory Exam: no sensory deficits noted Extrem General: normal to inspection, full ROM, capillary refill normal, no calf tenderness bilaterally and no edema Psych Appearance: grossly normal Mental Status: mental status grossly normal Speech and Movement: speech and movement normal Affect: normal affect Course Vital Signs Vital signs: Vital Signs Temperature 97.7 F 01/29/21 15:26 Pulse 103 H 01/29/21 15:26 Respiratory Rate 18 01/29/21 15:26 Blood Pressure 163/99 H 01/29/21 15:26 Pulse Oximetry 93 01/29/21 15:26 Temperature 97.7 F 01/29/21 15:26 Temperature Source Skin 01/29/21 15:26 Pulse 103 H 01/29/21 15:26 Respiratory Rate 18 01/29/21 15:26 Respiratory Effort 01/29/21 15:36 Blood Pressure 163/99 H 01/29/21 15:26 Pulse Oximetry 93 01/29/21 15:26 Oxygen Delivery Method Room Air 01/29/21 15:26 Oxygen Flow Rate 0 01/29/21 15:26 Pain Level 5 01/29/21 15:26 Comment has used musinex and cory-hiener cold medicine 01/29/21 15:26
--- NOTE | 2021-01-29 15:45 | RT.EKG_ITS ---
APPROVED REPORT Exam: Resting ECG Reason for Exam: chest pain, sob Patient Location: E HR:93 bpm ECG Measurements Heart Rate 93 AXIS CA 145 P 49 QRSd 99 QRS 19 QT 350 T 32 QTc 435 Conclusion Sinus rhythm...normal P axis, V-rate 60- 99. I have reviewed and interpreted ECG and agree with software generated interpretation.
--- NOTE | 2021-01-29 15:45 | DI.CT_ITS ---
Exam(s) CT CHEST PE CTA EXAM: CT CHEST PE CTA CLINICAL HISTORY: cough, sob, hemoptysis, r/o PE/pneumonia. TECHNIQUE: Imaging Protocol: Axial CT angiography was performed with multi-slice acquisition and mu lti-planar and/or 3D reconstructions. CONTRAST MATERIAL: Intravenous: Omnipaque 350 Contrast volume:structured data in ml COMPARISON: CT CHEST WITH CONTRAST from 05/12/2016 FINDINGS: CT angiography of the chest was performed with intravenous infusion of 70 cc of Omnipaque 350. There are multifocal and diffuse areas pulmonary consolidation and ground-glass opacity most prominen t involving dependent portions of the lungs suggesting pneumonitis period no significant pleural effu evan. Tracheobronchial tree appears intact. Mild cardiomegaly noted.. No pleural effusion. Tracheo bronchial tree appears intact. No evidence of pulmonary embolic disease, although there is suboptimal opacification of pulmonary art erial circulation limiting interpretation of peripheral circulation.. Thoracic aorta is of normal di ameter, no thoracic aortic aneurysm or dissection, major branch vessels appear intact. There is mild prominence mediastinal and hilar nodes, presumably on an inflammatory basis. Images obtained through the upper abdomen show unremarkable appearance of the visualized portions of the liver, spleen, pancreas, adrenals, and kidneys. IMPRESSION: There are findings consistent with multifocal pneumonitis. Appropriate follow-up studies requested. No evidence of pulmonary embolic disease. RADIATION DOSE DELIVERED: 577.83mGy.cm Total DLP 577.83mGy.cm Total DLP DATA REPOSITORY: All CT scans at this facility are submitted to the National Radiology Data Registry (NRDR) Dose Index Registry (DIR) with the [employer] (ACR). RADIATION OPTIMIZATION: All CT scans at this facility use at least one of these dose optimization te chniques: automated exposure control; mA and/or kV adjustment per patient size (includes targeted exa ms where dose is matched to clinical indication); or iterative reconstruction.
[2021-01-29] MEDS: Normal Saline 1,000 ML 1000 ML IV (16:05)
[2021-01-29] MEDS: Ketorolac 15 MG/ML VIAL IVP (16:05)
[2021-01-29] MEDS: ACETAMINOPHEN 1,000 MG/100 ML BTL 400 MG IVPB (16:07)
[2021-01-29] MEDS: Albuterol/Ipratropium 3 ML UPD VIAL UPD (16:10)
[2021-01-29 16:16] LABS: Abs Immature Grans 0.74 10^3/uL (0.0-0.06); HCT 40.5 % (40.0-50.0); HGB 14.6 g/dL (13.5-17.5); MCH 31.3 pg (27.0-33.0); MCV 86.7 fL (80-95); MPV 9.7 fL (8.0-11.0); Nucleated RBC 0 %; Platelet Count 221 10^3/uL (130-400); RBC 4.67 10^6/uL (4.36-5.78); RDW 12.9 % (11.8-14.1); RDW-SD 40.4 fL; WBC 14.16 10^3/uL (4.4-10.8)
[2021-01-29 16:21] LABS: Absolute Lymphocyte Count 1.27 10^3/uL (1.2-3.4)
[2021-01-29 16:24] LABS: INR 0.9 (0.9-1.1); Prothrombin Time 9.3 sec (9.3-11.0)
[2021-01-29 16:26] LABS: ALT 88 U/L (16-63); AST 42 U/L (15-37); Albumin 3.4 g/dL (3.4-5.0); Alkaline Phosphatase 134 U/L (46-116); Anion Gap 11.6 mmol/L (3-11); BUN 13 mg/dL (7-18); Bilirubin, Total 0.5 mg/dL (0.2-1.0); CO2 26.4 mmol/L (21.0-32.0); CREATININE 1.1 mg/dL (0.70-1.30); Calcium 10.1 mg/dL (8.5-10.1); Chloride 100 mmol/L (98-107); Glucose 95 mg/dL (74-106); Potassium 3.8 mmol/L (3.5-5.1); Sodium 138 mmol/L (136-145); Total Protein 8.2 g/dL (6.4-8.2)
[2021-01-29 16:27] LABS: Troponin I < 0.05 ng/mL (<0.06)
[2021-01-29 16:34] LABS: Absolute Eosinophil Count 0.14 10^3/uL (0.0-0.7); Absolute Monocyte Count 1.13 10^3/uL (0.1-0.8); Absolute Neutrophil Count 11.33 10^3/uL (1.2-6.7); Atypical Lymphocytes % 0; Bands % 3; Diff Comment Manual Differential; Metamyelocytes % 2; RBC Morphology Normal
[2021-01-29 17:03] LABS: COVID-19 PCR Negative (Negative)
[2021-01-29] MEDS: Omnipaque 350 MG/ML 100 ML BTL IJ (17:32)
[2021-01-29] MEDS: Normal Saline - Diluent 50 ML VIAL IV (17:33)
--- NOTE | 2021-01-29 17:59 | NUR.NOTE ---
Nursing Note: Roberta Staples mother can give her information per patient [phone]
[2021-01-29] MEDS: methylPREDNISolone SUCC 125 MG VIAL IVP (18:25)
--- NOTE | 2021-01-29 18:26 | DI.VRAD_ITS ---
PROCEDURE INFORMATION: Exam: CTA Chest With Contrast Exam date and time: 01/29/2021 17:32 Age: 40 years old Clinical indication: Pain; Other: Cough so R/O pe pneumonia TECHNIQUE: Imaging protocol: Computed tomographic angiography of the chest with contrast. 3D rendering (Not supervised by radiologist): MIP and/or 3D reconstructed images were created by the technologist. COMPARISON: CT CHEST WITH CONTRAST 05/12/2016 12:59 FINDINGS: Pulmonary arteries: Suboptimal contrast bolus into the pulmonary arteries with no main or lobar embolus, and no large segmental embolus. Aorta: No aortic aneurysm. No aortic dissection. Lungs: New, moderate airspace consolidation throughout both lower lobes as well as minor airspace consolidation in the right upper, right middle lobes and lingula. There are scattered surrounding centrilobular pattern nodules also most consistent with infection. Pleural spaces: No significant pleural fluid. No pneumothorax. Heart: Trace pericardial fluid appears likely physiologic. No significant cardiomegaly. Lymph nodes: No enlarged lymph nodes. Bones/joints: No acute fracture. Soft tissues: No suspicious lesions. IMPRESSION: 1. Moderate multilobar pneumonia. 2. Suboptimal contrast bolus with no significant pulmonary embolus. Dictated and Authenticated by: Ailyn Skaggs MD. Ordering:ARLEN Mayers MD
[2021-01-29] MEDS: Amoxicillin 875/Clav. 125 TAB PO (18:28)
[2021-01-29] MEDS: Doxycycline Hyclate 100 MG CAP PO (18:28)
[2021-01-29] MEDS: Amox. 875/Clav. 125, 2 TABS/BTL 1 TAB PO (18:29)
[2021-01-29] MEDS: Doxycycline Hyclate 100 MG, 2 CAPS/BTL PO (18:30)
== END 2021-01-29 18:55 | disposition left against medical advice (07) ==
PROVIDERS: Emergency Provider Physician Assistant; PCP Nurse Practitioner
DX: J18.9 Pneumonia, unspecified organism (principal); D72.825 Bandemia; Z20.822 Contact with and (suspected) exposure to COVID-19; Z53.29 Procedure and treatment not carried out because of patient's decision for other reasons
CPT/HCPCS: 71275; 80053; 87635; 93005; 94640; 96361; 96365; 96375; 99285; 83735; 84484; 85025; 85610; 85730; 93010; 99284; J0131; J1885; J2930; J3490; J7620

== ENCOUNTER 2021-03-23 01:19 | Outpatient (CLI) | payer MEDICAID, SELFPAY ==
--- NOTE | 2021-03-23 06:45 | DI.RAD_ITS ---
Exam(s) XR CHEST 2V PA LATERAL EXAM: XR CHEST 2V PA LATERAL CLINICAL HISTORY: follow up pneumonia,J18.9. TECHNIQUE: 2D digital imaging was performed. COMPARISON: CR XR CHEST 2V PA LATERAL from 10/24/2020 FINDINGS: Heart size is normal. The mediastinum is not widened. Lungs are clear. No infiltrates nor pleural effusions. IMPRESSION: No acute pulmonary findings.No significant change compared to 10/24/2020 DATA REPOSITORY: RADIATION DOSE DELIVERED:
== END 2021-03-23 01:39 ==
PROVIDERS: PCP Nurse Practitioner; Visit Provider Nurse Practitioner
DX: J18.9 Pneumonia, unspecified organism (principal)
CPT/HCPCS: 71046

== ENCOUNTER 2021-04-27 16:58 | Emergency (ER) | payer MEDICAID, SELFPAY ==
[2021-04-27 17:03] VITALS: BP 138/82; PULSE 90; RESP 16; TEMP 36.2; O2SAT 97
--- NOTE | 2021-04-27 17:07 | ED.GENADUL_ITS ---
Discharge Plan Disposition Patient Disposition: HOME Condition: Good Discharge Details Clinical Impression: Foot laceration Primary Care Provider: Marie Loza ED Provider: Linda Marx Home Meds and New Rx's Prescriptions: Continued sildenafil [Viagra] 100 mg tablet 100 mg PO As Directed Qty: 3 RF: 11 fluticasone propionate 50 mcg/actuation spray,suspension 2 spray JESSE DAILY PRN (Reason: allergy symptoms) Qty: 18.2 RF: 2 naproxen 500 mg tablet 500 mg PO BID Qty: 60 RF: 0 albuterol sulfate [Proventil HFA] 90 mcg/actuation HFA aerosol inhaler 2 puff inhalation Q6H PRN (Reason: shortness of breath or wheezing) Qty: 8.5 RF: 0 valsartan 80 mg tablet 160 mg PO DAILY Qty: 90 RF: 4 methadone 10 mg/mL concentrate 55 mg PO DAILY RF: 0 (DME) Easy Touch SheathLock Syrg-Ndl 3 mL 22 gauge x 1 1/2 syringe See Rx Instructions .ROUTE .MEDSUPPLY Qty: 6 RF: 3 testosterone cypionate 200 mg/mL oil 300 mg IM .COMPLEX Qty: 3 RF: 5 (DME) BD Regular Bevel [place] 25 gauge x 5/8 needle See Rx Instructions .ROUTE .MEDSUPPLY Qty: 100 RF: 4 omeprazole 20 mg capsule,delayed release(DR/EC) 20 mg PO DAILY Qty: 90 RF: 3 atorvastatin 80 mg tablet 100 mg PO QPM RF: 0 No Action Libido-Max 1 cap PO DAILY RF: 0 Discharge Instructions Instructions: Laceration (ED) Additional Instructions: Keep wound clean, dry, covered. Monitor for signs of infection including redness, warmth, drainage, increased pain, fevers/chills. If you develop these or other new/worsening symptoms please seek care urgently once again. Return in 10 days for suture removal. Referrals: Marie Loza, ASSOCIATE PROFESSOR OF PHYSICS [Primary Care Provider] - Discharge Data Discharge Date/Time-TO BE ENTERED AT DEPARTURE: 04/27/21 17:55 Medical Decision Making Patient is apleasant 40 year old male presenting with c/c of left foot laceration. Was walking bare foot on lawn, stepped on a piece of metal and cut dorsal aspect at the base of the great toe. States significant bleeding initially which is now controlled. No numbness/tingling. Will update tetanus. Full ROM of great toe. Patient and I discussed risks/benefits of suture closure as well as expected procedural steps. He voices understanding and wishes to proceed. Plase see procedure note. He tolerated this well. Wound was explored to base in a bloodless field with no FB or debris noted. Discussed wound care in depth. Discussed return precuations. All of his questions and concerns were addressed, he will return in 10 days for suture removal. He is in agreement with this plan. HPI General Mode of arrival: wheelchair . Date/Time Provider Initiated Documentation: 04/27/21 17:07 . Limitations to Documentation: no limitations . Information obtained by: patient and RN notes reviewed . History of Present Illness 40 year old M presents to the emergency department with the chief compl aint of left foot laceration, described as severe, with intensity rated at 8. Quality is described as aching, and is localized to the left and lower extremity. Patient reports no radiation. Patient started experiencing this minute(s) and it has been constant. Immobilization improves symptom(s), Movement worsens symptoms . Patient notes no other symptoms.. Patient did receive the following treatments prior to arrival, none Related Data Home Medications Medication Instructions Recorded Confirmed methadone 10 mg/mL oral concentrate 55 mg PO DAILY ml 10/13/18 04/27/21 syringe with needle, safety 3 mL #6 each 09/09/20 04/27/21 22 gauge x 1 1/2 testosterone cypionate 200 mg/mL 300 mg IM .COMPLEX #3 ml 09/09/20 04/27/21 intramuscular oil needle (disp) 25 gauge 25 gauge x #100 each 09/11/20 04/27/21 5/8 omeprazole 20 mg capsule,delayed 20 mg PO DAILY #90 tab-cap 09/19/20 04/27/21 release albuterol sulfate 90 mcg/actuation 2 puff INHALATION Q6H PRN #8.5 g 11/04/20 04/27/21 aerosol inhaler fluticasone propionate 50 2 spray JESSE DAILY PRN #18.2 ml 01/23/21 04/27/21 mcg/actuation nasal spray,suspension naproxen 500 mg tablet 500 mg PO BID #60 tab 01/23/21 04/27/21 sildenafil 100 mg tablet 100 mg PO As Directed #3 tab-cap 01/23/21 04/27/21 atorvastatin 100 mg PO QPM 01/29/21 04/27/21 valsartan 80 mg tablet 160 mg PO DAILY #90 tab 01/30/21 04/27/21 Libido-Max 1 cap PO DAILY 04/28/21 Previous Rx's Medication Instructions Recorded syringe with needle, safety 3 mL #6 each 09/09/20 22 gauge x 1 1/2 testosterone cypionate 200 mg/mL 300 mg IM .COMPLEX #3 ml 09/09/20 intramuscular oil needle (disp) 25 gauge 25 gauge x #100 each 09/11/20 5/8 omeprazole 20 mg capsule,delayed 20 mg PO DAILY #90 tab-cap 09/19/20 release albuterol sulfate 90 mcg/actuation 2 puff INHALATION Q6H PRN #8.5 g 11/04/20 aerosol inhaler fluticasone propionate 50 2 spray JESSE DAILY PRN #18.2 ml 01/23/21 mcg/actuation nasal spray,suspension naproxen 500 mg tablet 500 mg PO BID #60 tab 01/23/21 sildenafil 100 mg tablet 100 mg PO As Directed #3 tab-cap 01/23/21 valsartan 80 mg tablet 160 mg PO DAILY #90 tab 01/30/21 Allergies Allergy/AdvReac Type Severity Reaction Status Date / Time amlodipine Allergy Intermediate Drowsiness, Verified 04/28/21 13:24 chest pain lisinopril AdvReac Intermediate Cough Verified 04/28/21 13:24 General Stated Complaint: Laceration DUNG: 3 Review of Systems Constitutional Constitutional: Reports as per HPI, Denies chills and Denies fever(s) Musculoskeletal Musculoskeletal: Reports as per HPI Integumentary/Breasts Skin/Breast: Reports as per HPI Neurologic Neurologic: Reports as per HPI, Denies sensory deficit and Denies paresthesias [facility] Medical History Allergic rhinitis Depressive disorder Episodic cluster headache, not intractable (07/26/17) Essential hypertension (04/12/17) Gastroesophageal reflux disease without esophagitis (03/30/16) Hyperhidrosis Murmur, cardiac Congenital Testicular hypofunction (05/26/12) Testosterone deficiency in male Tobacco dependence Surgical History Appendectomy Pts states year or surgery was 2007 or 2008 EXCISION MASS, LIF H/O hand surgery Hx of tonsillectomy PROCEDURES OTHER REPAIR OF KNEE, 1999 Family History Mother Heart disease Father , age 70 Essential hypertension Diabetes Hyperlipidemia Lung cancer Sister Diabetes Brother Testicular cancer Maternal Grandfather Throat cancer Paternal Grandfather Diabetes Maternal Grandmother No problems noted. Paternal Grandmother Breast cancer Sister No problems noted. Social History Smoking/Tobacco Use Status: Current every day Tobacco Type: smokeless tobacco Smokeless tobacco user: chewing tobacco Second Hand Exposure: Yes Smoking risk assessment performed?: Yes Alcohol Intake: current Alcohol Intake frequency: a few times a week Drug use: Occasionally Substance use type: crack/cocaine and other Details: Methadone rx Details: methadone client Caregiver/Support person: No Household members: other Details: Mother Housing: house Communication Needs: None Do you need help understanding health information?: Never current occupation: [employer] Pets and animals: Yes Pets and animals: dog(s) Do you think of yourself as: straight/heterosexual Current gender identity: male What is your relationship status?: never How often do you talk on the phone with friends or family?: three or more times per week How often do you get together with friends or relatives?: twice per week How often do you attend catholic or mormonism services?: decline to answer Do you belong to any clubs or organized social groups?: no Panel score (0-1 are the most socially isolated patients): 1 What type of physical activity do you participate in: none Duration: 15-30 minutes/day Frequency: 5-6 times per week Korina/Bahai: Bahai Special korina needs: No Seatbelt use: always Helmet use: Yes Helmet use: always Drive intox or ride w/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 Do you feel safe at home: Yes Do you feel safe in your relationship?: Yes Exam Const General: cooperative, healthy appearing, comfortable, no acute distress, well developed and anxious Nutritional Appearance: average body habitus and well nourished Orientation: alert and awake Resp Effort & Inspection: normal respiratory effort, able to speak in complete sentences and no respiratory distress Cardio Rate: regular rate Rhythm: regular rhythm Skin Trauma: laceration Neuro General: patient alert and patient awake Cognition: normal cognition Speech: speech normal Gait: normal gait Sensory Exam: no sensory deficits noted Extrem Ankle/foot/toe images: 1. Patient has a laceration into the subQ over this area. No active bleeding. Sesnation intact. Able to dorsiflex against resistance. Brisk capillary refill, 2+ distal pulses. Deep structures intact, no FB or debris noted. Psych Appearance: grossly normal and well kempt Mental Status: mental status grossly normal Speech and Movement: speech and movement normal Course Vital Signs Vital signs: Vital Signs Temperature 36.2 C L 04/27/21 17:03 Pulse 90 04/27/21 17:03 Respiratory Rate 16 04/27/21 17:03 Blood Pressure 138/82 04/27/21 17:03 Pulse Oximetry 97 04/27/21 17:03 Temperature 36.2 C L 04/27/21 17:03 Temperature Source Temporal Artery Scan 04/27/21 17:03 Pulse 90 04/27/21 17:03 Respiratory Rate 16 04/27/21 17:03 Respiratory Effort Non-Labored 04/27/21 17:06 Blood Pressure 138/82 04/27/21 17:03 Blood Pressure Position Supine 04/27/21 17:03 Pulse Oximetry 97 04/27/21 17:03 Oxygen Delivery Method Room Air 04/27/21 17:03 Oxygen Flow Rate 0 04/27/21 17:03 Pain Level 8 04/27/21 17:03 Procedures Laceration Laceration 1: Site: lower extremity Side (If applicable): left Size (cm): 3 Description: linear Depth: simple, single layer Local Anesthetic: Lidocaine 1% Amount of anesthesia used (mL): 3 Pre-repair: wound explored, irrigated extensively and deep structures intact Skin layer closed with: nylon Size (cm): 5-0 Number of sutures: 3 Technique: simple, interrupted
== END 2021-04-27 17:55 | disposition home or self-care (01) ==
PROVIDERS: Emergency Provider Physician Assistant; PCP Nurse Practitioner
DX: S91.312A Laceration without foreign body, left foot, initial encounter (principal); W26.8XXA Contact with other sharp object(s), not elsewhere classified, initial encounter
CPT/HCPCS: 12002; 90471

== ENCOUNTER 2021-04-30 17:37 | Outpatient (REF) | payer MEDICAID, SELFPAY ==
[2021-05-01 13:59] LABS: Campylobacter PCR Negative (Negative); Salmonella PCR Negative (Negative); Shiga Toxin PCR Negative (Negative); Shigella/Enteroinvasive Ecoli Negative (Negative)
== END 2021-04-30 17:38 | disposition home or self-care (01) ==
LOC: LBN 17:37
PROVIDERS: PCP Nurse Practitioner; Visit Provider Family Medicine
DX: R19.7 Diarrhea, unspecified (principal)
CPT/HCPCS: 87505; 86674

== ENCOUNTER 2021-05-05 17:51 | Emergency (ER) | payer MEDICAID, SELFPAY ==
[2021-05-05 17:58] VITALS: BP 130/79; PULSE 73; RESP 18; TEMP 36.9; O2SAT 96
--- NOTE | 2021-05-05 18:14 | ED.GENADUL_ITS ---
Discharge Plan Disposition Patient Disposition: HOME Condition: Improving Discharge Details Clinical Impression: Visit for wound check Primary Care Provider: Marie Loza ED Provider: Abhijeet Montanez Home Meds and New Rx's Prescriptions: New cephalexin 500 mg tablet 500 mg PO TID 5 Days Qty: 15 RF: 0 Continued sildenafil [Viagra] 100 mg tablet 100 mg PO As Directed Qty: 3 RF: 11 fluticasone propionate 50 mcg/actuation spray,suspension 2 spray JESSE DAILY PRN (Reason: allergy symptoms) Qty: 18.2 RF: 2 naproxen 500 mg tablet 500 mg PO BID Qty: 60 RF: 0 albuterol sulfate [Proventil HFA] 90 mcg/actuation HFA aerosol inhaler 2 puff inhalation Q6H PRN (Reason: shortness of breath or wheezing) Qty: 8.5 RF: 0 valsartan 80 mg tablet 160 mg PO DAILY Qty: 90 RF: 4 Libido-Max 1 cap PO DAILY RF: 0 methadone 10 mg/mL concentrate 55 mg PO DAILY RF: 0 (DME) Easy Touch SheathLock Syrg-Ndl 3 mL 22 gauge x 1 1/2 syringe See Rx Instructions .ROUTE .MEDSUPPLY Qty: 6 RF: 3 testosterone cypionate 200 mg/mL oil 300 mg IM .COMPLEX Qty: 3 RF: 5 (DME) BD Regular Bevel [place] 25 gauge x 5/8 needle See Rx Instructions .ROUTE .MEDSUPPLY Qty: 100 RF: 4 omeprazole 20 mg capsule,delayed release(DR/EC) 20 mg PO DAILY Qty: 90 RF: 3 atorvastatin 80 mg tablet 100 mg PO QPM RF: 0 Discharge Instructions Additional Instructions: Take Keflex as prescribed. Elevate above the level of the heart to reduce swelling. Avoid ponds and streams until completely healed. Leave current dressing in place 2 to 3 days time. The underlying Steri-Strips will begin to peel and may be removed at 7 days time. Medical Decision Making 40-year-old male returns for recheck of wound. He had a laceration to his left great toe on the dorsal surface on April 27. It was repaired with 3 interrupted nylon sutures. Now reports 2 days of increasing hyperemia around the wound and expression of clear fluid. On my exam it appears more consistent with hyperemia and perhaps early cellulitis, rather than a developing abscess. I remove the sutures and was unable to express any purulent fluid. I subsequent placed Steri-Strips. We will place the patient on 5 days of Keflex. He understands homecare and indications to seek reevaluation. HPI General Mode of arrival: ambulatory . Date/Time Provider Initiated Documentation: 05/05/21 17:52 . Limitations to Documentation: no limitations . Information obtained by: patient . History of Present Illness 40 year old M presents to the emergency department with the chief complaint of Wound check left foot, described as mild, Quality is described as dull, and is lo calized to the left and lower extremity. Patient reports no radiation. No relieving factors improve symptom(s), No exacerbating factors reported . Patient notes denies fever/chills. Related Data Home Medications Medication Instructions Recorded Confirmed methadone 10 mg/mL oral concentrate 55 mg PO DAILY ml 10/13/18 04/29/21 syringe with needle, safety 3 mL #6 each 09/09/20 04/29/21 22 gauge x 1 1/2 testosterone cypionate 200 mg/mL 300 mg IM .COMPLEX #3 ml 09/09/20 04/29/21 intramuscular oil needle (disp) 25 gauge 25 gauge x #100 each 09/11/20 04/29/21 5/8 omeprazole 20 mg capsule,delayed 20 mg PO DAILY #90 tab-cap 09/19/20 04/29/21 release albuterol sulfate 90 mcg/actuation 2 puff INHALATION Q6H PRN #8.5 g 11/04/20 04/29/21 aerosol inhaler fluticasone propionate 50 2 spray JESSE DAILY PRN #18.2 ml 01/23/21 04/29/21 mcg/actuation nasal spray,suspension naproxen 500 mg tablet 500 mg PO BID #60 tab 01/23/21 04/29/21 sildenafil 100 mg tablet 100 mg PO As Directed #3 tab-cap 01/23/21 04/29/21 atorvastatin 100 mg PO QPM 01/29/21 04/29/21 valsartan 80 mg tablet 160 mg PO DAILY #90 tab 01/30/21 04/29/21 Libido-Max 1 cap PO DAILY 04/28/21 04/29/21 cephalexin 500 mg PO TID 5 Days #15 tab 05/05/21 Previous Rx's Medication Instructions Recorded syringe with needle, safety 3 mL #6 each 09/09/20 22 gauge x 1 1/2 testosterone cypionate 200 mg/mL 300 mg IM .COMPLEX #3 ml 09/09/20 intramuscular oil needle (disp) 25 gauge 25 gauge x #100 each 09/11/20 5/8 omeprazole 20 mg capsule,delayed 20 mg PO DAILY #90 tab-cap 09/19/20 release albuterol sulfate 90 mcg/actuation 2 puff INHALATION Q6H PRN #8.5 g 11/04/20 aerosol inhaler fluticasone propionate 50 2 spray JESSE DAILY PRN #18.2 ml 01/23/21 mcg/actuation nasal spray,suspension naproxen 500 mg tablet 500 mg PO BID #60 tab 01/23/21 sildenafil 100 mg tablet 100 mg PO As Directed #3 tab-cap 01/23/21 valsartan 80 mg tablet 160 mg PO DAILY #90 tab 01/30/21 cephalexin 500 mg PO TID 5 Days #15 tab 05/05/21 Allergies Allergy/AdvReac Type Severity Reaction Status Date / Time amlodipine Allergy Intermediate Drowsiness, Verified 04/28/21 13:24 chest pain lisinopril AdvReac Intermediate Cough Verified 04/28/21 13:24 General Stated Complaint: Cellulitis DUNG: 4 Review of Systems Narrative: No fever or shaking chills. Clear drainage from wound, no purulence. Minimal pain. No proximal streaking. 6 systems reviewed and otherwise negative [facility] Medical History Allergic rhinitis Depressive disorder Episodic cluster headache, not intractable (07/26/17) Essential hypertension (04/12/17) Gastroesophageal reflux disease without esophagitis (03/30/16) Hyperhidrosis Murmur, cardiac Congenital Testicular hypofunction (05/26/12) Testosterone deficiency in male Tobacco dependence Surgical History Appendectomy Pts states year or surgery was 2007 or 2008 EXCISION MASS, LIF H/O hand surgery Hx of tonsillectomy PROCEDURES OTHER REPAIR OF KNEE, 1998 Family History Mother Heart disease Father , age 70 Essential hypertension Diabetes Hyperlipidemia Lung cancer Sister Diabetes Brother Testicular cancer Maternal Grandfather Throat cancer Paternal Grandfather Diabetes Maternal Grandmother No problems noted. Paternal Grandmother Breast cancer Sister No problems noted. Social History Smoking/Tobacco Use Status: Current every day Tobacco Type: smokeless tobacco Smokeless tobacco user: chewing tobacco Second Hand Exposure: Yes Smoking risk assessment performed?: Yes Alcohol Intake: current Alcohol Intake frequency: a few times a week Drug use: Occasionally Substance use type: crack/cocaine and other Details: Methadone rx Details: methadone client Caregiver/Support person: No Household members: other Details: Mother Housing: house Communication Needs: None Do you need help understanding health information?: Never current occupation: [employer] Pets and animals: Yes Pets and animals: dog(s) Do you think of yourself as: straight/heterosexual Current gender identity: male What is your relationship status?: never How often do you talk on the phone with friends or family?: three or more times per week How often do you get together with friends or relatives?: twice per week How often do you attend yarsani or confucianist services?: decline to answer Do you belong to any clubs or organized social groups?: no Panel score (0-1 are the most socially isolated patients): 1 What type of physical activity do you participate in: none Duration: 15-30 minutes/day Frequency: 5-6 times per week Korina/Synagogue: Rastafari Special korina needs: No Seatbelt use: always Helmet use: Yes Helmet use: always Drive intox or ride w/intox 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 Pleasant, well groomed, interactive. HEAD: Normocephalic, atraumatic EXT: Full ROM, base of the left great toe has a healing laceration with [address] there is surrounding hyperemia, no significant fluctuance. Neuro: Grossly normal neurologic exam, conversant, interactive. Psych: Speech fluent, thoughts congruent, affect normal Course Vital Signs Vital signs: Vital Signs Temperature 36.9 C 05/05/21 17:58 Pulse 73 05/05/21 17:58 Respiratory Rate 18 05/05/21 17:58 Blood Pressure 130/79 05/05/21 17:58 Pulse Oximetry 96 05/05/21 17:58 Temperature 36.9 C 05/05/21 17:58 Temperature Source Skin 05/05/21 17:58 Pulse 73 05/05/21 17:58 Respiratory Rate 18 05/05/21 17:58 Respiratory Effort 05/05/21 18:03 Blood Pressure 130/79 05/05/21 17:58 Blood Pressure Position Sitting 05/05/21 17:58 Pulse Oximetry 96 05/05/21 17:58 Oxygen Delivery Method Room Air 05/05/21 17:58 Oxygen Flow Rate 0 05/05/21 17:58 Pain Level 5 05/05/21 17:58
[2021-05-05] MEDS: Cephalexin 500 MG CAP, 4 CAPS/BTL PO (18:20)
== END 2021-05-05 18:23 | disposition home or self-care (01) ==
PROVIDERS: Emergency Provider Emergency Medicine; PCP Nurse Practitioner
DX: S91.112D Laceration without foreign body of left great toe without damage to nail, subsequent encounter (principal); L03.032 Cellulitis of left toe; X58.XXXD Exposure to other specified factors, subsequent encounter; Z48.02 Encounter for removal of sutures
CPT/HCPCS: 99283

== ENCOUNTER 2021-06-29 14:11 | Emergency (ER) | payer MEDICAID, SELFPAY ==
[2021-06-29 14:15] VITALS: BP 178/105; PULSE 93; RESP 16; TEMP 36.8; O2SAT 98
--- NOTE | 2021-06-29 14:23 | ED.GENADUL_ITS ---
Discharge Plan Disposition Patient Disposition: HOME Condition: Stable Discharge Details Clinical Impression: Boil, Lymphadenopathy of head and neck region Primary Care Provider: Marie Loza ED Provider: Taty Whittaker Home Meds and New Rx's Prescriptions: New clindamycin HCl [Cleocin HCl] 150 mg capsule 450 mg PO TID 7 Days Qty: 63 RF: 0 Continued albuterol sulfate [Proventil HFA] 90 mcg/actuation HFA aerosol inhaler 2 puff inhalation Q6H PRN (Reason: shortness of breath or wheezing) Qty: 8.5 RF: 0 methadone 10 mg/mL concentrate 55 mg PO DAILY RF: 0 omeprazole 20 mg capsule,delayed release(DR/EC) 20 mg PO DAILY Qty: 90 RF: 3 atorvastatin 80 mg tablet 80 mg PO QPM RF: 0 No Action sildenafil [Viagra] 100 mg tablet 100 mg PO As Directed Qty: 3 RF: 11 fluticasone propionate 50 mcg/actuation spray,suspension 2 spray JESSE DAILY PRN (Reason: allergy symptoms) Qty: 18.2 RF: 2 naproxen 500 mg tablet 500 mg PO BID Qty: 60 RF: 0 valsartan 80 mg tablet 160 mg PO DAILY Qty: 90 RF: 4 Libido-Max 1 cap PO DAILY RF: 0 (DME) Easy Touch SheathLock Syrg-Ndl 3 mL 22 gauge x 1 1/2 syringe See Rx Instructions .ROUTE .MEDSUPPLY Qty: 6 RF: 3 (DME) BD Regular Bevel [place] 25 gauge x 5/8 needle See Rx Instructions .ROUTE .MEDSUPPLY Qty: 100 RF: 4 Discharge Instructions Instructions: MRSA (Methicillin-Resistant Staphylococcus Aureus) (ED), Folliculitis (ED) Additional Instructions: Take the antibiotic as directed. Take 3 tablet 3 times a day for the next 7 days. Eat yogurt or take a probiotic while on the antibiotics. At this time the lab work is reassuring, there is no evidence of spinal abscess. However, there is a small area of fluid Around T9-T10 which is not drainable at this time. Follow up with primary care provider in 3-5 days. Return to ED sooner if any worsening fever, Back Pain, Numbness, weakness in legs or concerns. Increase or al fluids. Please take Tylenol or Ibuprofen with food every 4-6 hours as needed for pain and swelling. Do not touch wounds, or boils unless with clean hands. Referrals: Marie Loza NP [Primary Care Provider] - 1 week Discharge Data Discharge Date/Time-TO BE ENTERED AT DEPARTURE: 06/29/21 17:40 Medical Decision Making 40-year-old male presents to the ER chief fatigue, chills over the weekend. He reports 2 days ago began with a right posterior neck erythemic boil and a swollen lymph node which is tender to palpation just inferior to that on the right neck. He also notes a laceration to his left dorsum of his foot which was repaired approximately a month ago. Report squeezing some pus out of the foot wound 2 weeks ago. No surrounding induration or erythema noted to the wound. He does have a past medical history of MRSA, history of IVDA, is taking methadone currently. Endorses occasional EtOH. He also reports some thoracic midline tenderness which is gotten worse over the last couple of days. Denies any abdominal pain, diarrhea. Does endorse some nausea. Past medical history includes cardiac murmur, GERD,, depression, hyperlipidemia. Reports takingAlkaseltzer Cold at 11am prior to arrival. Spoke with radiologist Dr. Marquez regarding MRI To rule out spinal abscess. At this time thoracic spine MRI with contrast ordered. CBC, CMP, blood cultures x2, urinalysis, normal saline 1 L 300 milligrams clindamycin IV piggyback. 1705: Spoke with Dr. Johnson with Radiology, no evidence of abscess. CBC shows no leukocytosis, lactate 1.2, CMP largely within limits. Alk phos is 123, urinalysis pending. Expected disposition is Discharge home on Clindamycin 450 mg TID x 7 days, with PCP follow up. EXAM: MR THORACIC SPINE WO/W CLINICAL HISTORY: R/O Spinal abscess COMPARISON: No exams were available for comparison FINDINGS: OSSEOUS: There are no acute appearing thoracic vertebral fractures. There are no ominous osseous lesions in the thoracic vertebrae. THORACIC SPINAL CORD: There is no abnormal signal in the cervical spinal cord and no evidence of focal cord atrophy nor focal cord swelling. There is no evidence of syringomyelia nor significant spinal cord dysraphism. There is no evidence of mass at the conus medullaris. EPIDURAL SPACE: No evidence of abscess, as per request PARASPINAL TISSUES: No evidence of mass nor abscess DISC SPACES: No evidence of significant disc herniation. No canal stenosis. No significant foraminal stenosis. IMPRESSION: 1. No significant findings. No evidence of spinal canal/epidural abscess. No evidence of discitis. No evidence of osteomyelitis. No paraspinal abscess. 1729: Call received from [facility]. See report below. Radiology stated that there is a very small enhancing fluid area around T9-10 that is enhancing. FINDINGS: Limitations: Motion artifact does moderately limit the sensitivity of this examination. Vertebrae: There is mild STIR hyperintensity and enhancement at the anterior superior aspect of the T11 vertebral body, which could represent mild edema. The vertebral body heights are maintained. Epidural space: There is a 3.5 x 0.7 cm enhancing edematous collection in the posterior epidural space at the T9-T10 level, which could represent phlegmon in the setting of infection (image 9, series [id number] and image 8, series 80233). No significant volume of drainable fluid is seen. Spinal cord: There is mild indentation of the thecal sac at T9-T10 without signi ficant spinal cord compression. Discs/Spinal canal/Neural foramina: There is mild degenerative disc disease at T8-T9 and T11-T12 with loss of vertebral body height. No significant spinal canal stenosis. Soft tissues: Unremarkable. IMPRESSION: 1. 3.5 cm enhancing collection at the T9-T10 posterior epidural space, concerning for phlegmon in the setting of known infection. Correlate with clinical findings. No significant spinal cord compression. 2. Mild edema and enhancement at the anterior superior aspect of T11, which could reflect mild degenerative, traumatic or infectious changes. No significant discitis- osteomyelitis. 3. THIS REPORT CONTAINS FINDINGS THAT MAY BE CRITICAL TO PATIENT CARE. The findings were verbally communicated via telephone conference with TATY WHITTAKER at 5:28 PM EDT on 06/29/2021. The findings were acknowledged and understood. Thank you for allowing us to participate in the care of your patient. Dictated and Authenticated by: Janet Oliver MD I did discuss findings with patient prior to his discharge, he verbalized understanding, discussed strict return instructions, he verbalizes understanding. Patient given prescription for Clindamycin 450 mg TID x 7 days, Images pushed to [facility] will consult with neurosurgery. 1821: [facility] – [place] called for consult with Spine or Ortho, images pushed. 1934: Spoke with Dr. Audrey Angel [employer] regarding MRI result, she reports that it is too small for intervention, she recommends ESR and CRP and discussion about abx. Will add on CRP and ESR to labs. 06-30-21: 1600:Third opinion sought regarding MRI T-spine, Dr. Denny Nguyen radiologist was able to personally view the MRI and is in agreement with Dr. Johnson, he does not believe there is an epidural abscess at this time. HPI General Mode of arrival: ambulatory . Date/Time Provider Initiated Documentation: 06/29/21 14:19 . Limitations to Documentation: no limitations . Information obtained by: patient, RN notes reviewed and old records reviewed . HPI Narrative: 40-year-old male presents to the ER chief fatigue, chills over the weekend. He reports 2 days ago began with a right posterior neck erythemic boil and a swollen lymph node which is tender to palpation just inferior to that on the right neck. He also notes a laceration to his left dorsum of his foot which was repaired approximately a month ago. Report squeezing some pus out of the foot wound 2 weeks ago. No surrounding induration or erythema noted to the wound. He does have a past medical history of MRSA, history of IVDA, is taking methadone currently. Endorses occasional EtOH. He also reports some thoracic midline tenderness which is gotten worse over the last couple of days. Denies any abdominal pain, diarrhea. Does endorse some nausea. Past medical history includes cardiac murmur, GERD,, depression, hyperlipidemia. Reports takingAlkaseltzer Cold at 11am prior to arrival. Related Data Home Medications Medication Instructions Recorded Confirmed methadone 10 mg/mL oral concentrate 55 mg PO DAILY ml 10/13/18 06/29/21 syringe with needle, safety 3 mL #6 each 09/09/20 04/29/21 22 gauge x 1 1/2 needle (disp) 25 gauge 25 gauge x #100 each 09/11/20 04/29/21 5/8 omeprazole 20 mg capsule,delayed 20 mg PO DAILY #90 tab-cap 09/19/20 06/29/21 release albuterol sulfate 90 mcg/actuation 2 puff INHALATION Q6H PRN #8.5 g 11/04/20 06/29/21 aerosol inhaler fluticasone propionate 50 2 spray JESSE DAILY PRN #18.2 ml 01/23/21 06/29/21 mcg/actuation nasal spray,suspension naproxen 500 mg tablet 500 mg PO BID #60 tab 01/23/21 06/29/21 sildenafil 100 mg tablet 100 mg PO As Directed #3 tab-cap 01/23/21 06/29/21 atorvastatin 80 mg PO QPM 01/29/21 06/29/21 valsartan 80 mg tablet 160 mg PO DAILY #90 tab 01/30/21 06/29/21 Libido-Max 1 cap PO DAILY 04/28/21 04/29/21 clindamycin HCl [Cleocin HCl] 450 mg PO TID 7 Days #63 cap 06/29/21 Previous Rx's Medication Instructions Recorded syringe with needle, safety 3 mL #6 each 09/09/20 22 gauge x 1 1/2 needle (disp) 25 gauge 25 gauge x #100 each 09/11/20 5/8 omeprazole 20 mg capsule,delayed 20 mg PO DAILY #90 tab-cap 09/19/20 release albuterol sulfate 90 mcg/actuation 2 puff INHALATION Q6H PRN #8.5 g 11/04/20 aerosol inhaler fluticasone propionate 50 2 spray JESSE DAILY PRN #18.2 ml 01/23/21 mcg/actuation nasal spray,suspension naproxen 500 mg tablet 500 mg PO BID #60 tab 01/23/21 sildenafil 100 mg tablet 100 mg PO As Directed #3 tab-cap 01/23/21 valsartan 80 mg tablet 160 mg PO DAILY #90 tab 01/30/21 clindamycin HCl [Cleocin HCl] 450 mg PO TID 7 Days #63 cap 06/29/21 Allergies Allergy/AdvReac Type Severity Reaction Status Date / Time amlodipine Allergy Intermediate Drowsiness, Verified 06/29/21 14:21 chest pain lisinopril AdvReac Intermediate Cough Verified 06/29/21 14:21 General Stated Complaint: RashLesion DUNG: 3 Review of Systems All systems reviewed & are unremarkable except as noted in HPI and below Constitutional Constitutional: Reports chills, Reports fatigue and Reports fever(s) Endocrine Endocrine: Reports fatigue PFSH Medical History Allergic rhinitis Depressive disorder Episodic cluster headache, not intractable (07/26/17) Essential hypertension (04/12/17) Gastroesophageal reflux disease without esophagitis (03/30/16) Hyperhidrosis Murmur, cardiac Congenital Testicular hypofunction (05/26/12) Testosterone deficiency in male Tobacco dependence Surgical History Appendectomy Pts states year or surgery was 2007 or 2008 EXCISION MASS, LIF H/O hand surgery Hx of tonsillectomy PROCEDURES OTHER REPAIR OF KNEE, 1998 Family History Mother Heart disease Father , age 70 Essential hypertension Diabetes Hyperlipidemia Lung cancer Sister Diabetes Brother Testicular cancer Maternal Grandfather Throat cancer Paternal Grandfather Diabetes Maternal Grandmother No problems noted. Paternal Grandmother Breast cancer Sister No problems noted. Social History Smoking/Tobacco Use Status: Current every day Tobacco Type: smokeless tobacco Smokeless tobacco user: chewing tobacco Second Hand Exposure: Yes Smoking risk assessment performed?: Yes Alcohol Intake: current Alcohol Intake frequency: a few times a week Drug use: Occasionally Substance use type: other Details: Methadone rx Details: methadone client Caregiver/Support person: No Household members: other Details: Mother Housing: house Communication Needs: None Do you need help understanding health information?: Never current occupation: [employer] Pets and animals: Yes Pets and animals: dog(s) Do you think of yourself as: straight/heterosexual Current gender identity: male What is your relationship status?: never How often do you talk on the phone with friends or family?: three or more times per week How often do you get together with friends or relatives?: twice per week How often do you attend yarsanism or yazidism services?: decline to answer Do you belong to any clubs or organized social groups?: no Panel score (0-1 are the most socially isolated patients): 1 What type of physical activity do you participate in: none Duration: 15-30 minutes/day Frequency: 5-6 times per week Korina/Sabianism: Rastafari Special korina needs: No Seatbelt use: always Helmet use: Yes Helmet use: always Drive intox or ride w/intox motor bus driver: No Do you feel safe at home: Yes Do you feel safe in your relationship?: Yes Exam Narrative Exam Narrative: Constitutional: Alert and oriented x3. Appears stated age. Normal body habitus. Patient is diaphoretic. Head: Normocephalic, multiple erythemic raised areas noted to the posterior skin of the occipital scalp. Largest 1 on the right side of the lateral neck, there is lateral cervical adenopathy palpated. Eyes: Pupils PERRLA, Red reflex noted, EOM's intact. Eyelids symmetrical without lesions, discharge, or swelling. ENT: Bilateral TM's WNL, External ear normal to inspection, no mastoid TTP, swelling, or erythema, Nasal turbinates WNL, no nasal discharge. Normal dentition, Posterior pharynx WNL, no exudate. Chest: RRR, Normal S1, S2, distal pulses intact. Resp: Lungs clear to auscultation bilaterally, no wheezes, rales, or rhonchi. Musculoskeletal: Normal gait, 5/5 strength to all four extremities. T-spine tenderness with palpation patient reports makes me nauseous when palpating spine. Skin: See Head exam. Capillary refill less than 2 sec. Neurologic: Cranial nerves II-XII intact. Alert and oriented x 3. DTR's intact. Hematologic/Lymphatic: No ecchymosis, positive right cervical lymphadenopathy. Course Vital Signs Vital signs: Vital Signs Pulse 93 H 06/29/21 14:15 Respiratory Rate 16 06/29/21 14:15 Blood Pressure 178/105 H 06/29/21 14:15 Pulse Oximetry 98 06/29/21 14:15 Pulse 93 H 06/29/21 14:15 Respiratory Rate 16 06/29/21 14:15 Respiratory Effort Non-Labored 06/29/21 14:18 Blood Pressure 178/105 H 06/29/21 14:15 Blood Pressure Position Sitting 06/29/21 14:15 Pulse Oximetry 98 06/29/21 14:15 Oxygen Delivery Method Room Air 06/29/21 14:15 Oxygen Flow Rate 0 06/29/21 14:15 Pain Level 3 06/29/21 14:15 PAWSS Have you Been Recently Intoxicated or Drunk Within the Last 30 days?: Yes Have you Ever Experienced Previous Episodes of Alcohol Withdrawal?: Yes Have you ever Experienced Withdrawal Seizures?: No Have you ever Experienced Delirium Tremens(DT)s?: No Have you ever undergone Alcohol Rehabilitation Treatment (i.e, inpt ot outpatient treatment programs)?: Yes Have you ever Experienced Blackouts?: Yes Have you ever Combined Alcohol with other Downers within the last 90 days?: No Have you ever Combined Alcohol with any other Substance of Abuse during the last 90 days?: No Positive Blood Alcohol level on Presentation? [PCS.BAL]: No Evidence of Increased Autonomic Activity (i.e. HR>120, tremor, sweating, agitation, nausea)?: No Result: 4
[2021-06-29 15:10] LABS: Abs Immature Grans 0.08 10^3/uL (0.0-0.06); Absolute Basophil Count 0.05 10^3/uL (0.0-0.2); Absolute Eosinophil Count 0.32 10^3/uL (0.0-0.7); Absolute Lymphocyte Count 2.26 10^3/uL (1.2-3.4); Absolute Neutrophil Count 6.08 10^3/uL (1.2-6.7); Basophils % 0.5; Eosinophils % 3.4; HCT 41.2 % (40.0-50.0); HGB 14.6 g/dL (13.5-17.5); Immature Grans % 0.9; Lymphocytes % 24.1; MCH 31.3 pg (27.0-33.0); MCHC 35.4 % (32.0-36.0); MCV 88.4 fL (80-95); MPV 9.4 fL (8.0-11.0); Monocytes % 6.4; Neutrophils % 64.7; Nucleated RBC 0 %; Platelet Count 233 10^3/uL (130-400); RBC 4.66 10^6/uL (4.36-5.78); RDW-SD 38.3 fL; WBC 9.39 10^3/uL (4.4-10.8)
[2021-06-29 15:11] LABS: Lactate 1.2 mmol/L (0.9-1.7)
[2021-06-29] MEDS: Normal Saline 1,000 ML 1000 ML IV (15:12)
[2021-06-29 15:38] LABS: ALT 53 U/L (16-63); AST 29 U/L (15-37); Albumin 3.7 g/dL (3.4-5.0); Alkaline Phosphatase 123 U/L (46-116); Anion Gap 9.2 mmol/L (3-11); BUN 14 mg/dL (7-18); Bilirubin, Total 0.4 mg/dL (0.2-1.0); CO2 28.8 mmol/L (21.0-32.0); CREATININE 1.1 mg/dL (0.70-1.30); Calcium 9.5 mg/dL (8.5-10.1); Chloride 100 mmol/L (98-107); Glucose 98 mg/dL (74-106); Magnesium 2.1 mg/dL (1.8-2.4); Potassium 4.3 mmol/L (3.5-5.1); Sodium 138 mmol/L (136-145); Total Protein 7.7 g/dL (6.4-8.2)
[2021-06-29] MEDS: Gadoterate meglumine 20 ML VIAL IVP (16:08)
--- NOTE | 2021-06-29 16:30 | DI.MRI_ITS ---
Exam(s) MR THORACIC SPINE WO/W EXAM: MR THORACIC SPINE WO/W CLINICAL HISTORY: R/O Spinal abscess TECHNIQUE: Multiplanar multisequence MRI of the thoracic spine was performed without intravenous con trast. COMPARISON: No exams were available for comparison FINDINGS: OSSEOUS: There are no acute appearing thoracic vertebral fractures. There are no ominous osseous les ions in the thoracic vertebrae. THORACIC SPINAL CORD: There is no abnormal signal in the cervical spinal cord and no evidence of foca l cord atrophy nor focal cord swelling. There is no evidence of syringomyelia nor significant spinal cord dysraphism. There is no evidence of mass at the conus medullaris. EPIDURAL SPACE: No evidence of abscess, as per request PARASPINAL TISSUES: No evidence of mass nor abscess DISC SPACES: No evidence of significant disc herniation. No canal stenosis. No significant foramina l stenosis. IMPRESSION: 1. No significant findings. No evidence of spinal canal/epidural abscess. No evidence of discitis. No evidence of osteomyelitis. No paraspinal abscess. DATA REPOSITORY:
--- NOTE | 2021-06-29 16:35 | DI.RAD_ITS ---
Exam(s) XR FOOT LT COMPLETE EXAM: XR FOOT LT COMPLETE CLINICAL HISTORY: Wound, R/O Gas. TECHNIQUE: 2D digital imaging was performed of the left foot. Three images were obtained. AP, obli que and lateral views were obtained. COMPARISON: No exams were available for comparison FINDINGS: BONES: No acute fracture is present. No bony destructive lesion is seen. JOINTS: No dislocation present. SOFT TISSUE: Normal. IMPRESSION: Unremarkable radiographs of the left foot. DATA REPOSITORY: RADIATION DOSE DELIVERED:
[2021-06-29] MEDS: CLINDAMYCIN 300 MG/50 ML BAG 100 MG IVPB (16:59)
[2021-06-29 17:16] VITALS: BP 141/85; PULSE 82; RESP 16; TEMP 36.8; O2SAT 98
--- NOTE | 2021-06-29 17:52 | DI.VRAD_ITS ---
PROCEDURE INFORMATION: Exam: MR Thoracic Spine Without and With Contrast Exam date and time: 06/29/2021 3:42 PM Age: 40 years old Clinical indication: Pain in thoracic spine; Without myelpathy or radiculopathy; Patient HX: Pain thoracic spine with touch. ? Abscess TECHNIQUE: Imaging protocol: Multiplanar magnetic resonance images of the thoracic spine without and with contrast. Contrast material: DOTAREM; Contrast volume: 20 ml; Contrast route: INTRAVENOUS (IV); COMPARISON: CT CHEST PE CTA 01/29/2021 5:31 PM FINDINGS: Limitations: Motion artifact does moderately limit the sensitivity of this examination. Vertebrae: There is mild STIR hyperintensity and enhancement at the anterior superior aspect of the T11 vertebral body, which could represent mild edema. The vertebral body heights are maintained. Epidural space: There is a 3.5 x 0.7 cm enhancing edematous collection in the posterior epidural space at the T9-T10 level, which could represent phlegmon in the setting of infection (image 9, series [id number] and image 8, series [id number]). No significant volume of drainable fluid is seen. Spinal cord: There is mild indentation of the thecal sac at T9-T10 without significant spinal cord compression. Discs/Spinal canal/Neural foramina: There is mild degenerative disc disease at T8-T9 and T11-T12 with loss of vertebral body height. No significant spinal canal stenosis. Soft tissues: Unremarkable. IMPRESSION: 1. 3.5 cm enhancing collection at the T9-T10 posterior epidural space, concerning for phlegmon in the setting of known infection. Correlate with clinical findings. No significant spinal cord compression. 2. Mild edema and enhancement at the anterior superior aspect of T11, which could reflect mild degenerative, traumatic or infectious changes. No significant discitis-osteomyelitis. 3. THIS REPORT CONTAINS FINDINGS THAT MAY BE CRITICAL TO PATIENT CARE. The findings were verbally communicated via telephone conference with KAMLA WHITTAKER at 5:28 PM EDT on 06/29/2021. The findings were acknowledged and understood. Dictated and Authenticated by: Janet Parker MD. Ordering:MINERVA Posey MD
--- NOTE | 2021-06-29 18:07 | DI.VRAD_ITS ---
PROCEDURE INFORMATION: Exam: XR Left Foot Exam date and time: 06/29/2021 2:23 PM Age: 40 years old Clinical indication: Pain; Foot; Left; Patient HX: R/O air TECHNIQUE: Imaging protocol: XR Left foot. Views: 3 or more views. COMPARISON: No relevant prior studies available. FINDINGS: Bones/joints: No acute fracture or dislocation. The alignment is anatomic. Soft tissues: Normal. IMPRESSION: No acute findings. Dictated and Authenticated by: Janet Parker MD. Ordering:MINERVA Posey MD
[2021-06-29 20:03] LABS: ESR 17 mm/hr (0-15)
[2021-06-29 20:24] LABS: C-Reactive Protein 3.26 mg/dL (0.0-0.3)
== END 2021-06-29 17:40 | disposition home or self-care (01) ==
PROVIDERS: Emergency Provider Registered Nurse Emergency; PCP Nurse Practitioner
DX: R59.0 Localized enlarged lymph nodes (principal); L02.12 Furuncle of neck; F11.20 Opioid dependence, uncomplicated; M54.6 Pain in thoracic spine; Z86.14 Personal history of Methicillin resistant Staphylococcus aureus infection
CPT/HCPCS: 36415; 80053; 85652; 87040; 96361; 96365; 99285; 72157; 73630; 81003; 83605; 83735; 85025; 86140

== ENCOUNTER 2021-10-12 12:46 | Emergency (ER) | payer OTHER, SELFPAY ==
--- NOTE | 2021-10-12 13:00 | DI.RAD_ITS ---
Exam(s) XR KNEE LT 4V+ EXAM: XR KNEE LT 4V+ CLINICAL HISTORY: twist injury. TECHNIQUE: 2D digital imaging was performed. COMPARISON: No exams were available for comparison FINDINGS: BONES: No acute fracture is present. No bony destructive lesion is seen. Minimal periarticular spurr ing. JOINTS: The knee is normally aligned. No joint effusion is seen. SOFT TISSUE: Normal. IMPRESSION: No acute abnormality. DATA REPOSITORY: RADIATION DOSE DELIVERED:
[2021-10-12 13:02] VITALS: BP 156/94; PULSE 89; RESP 16; TEMP 35.9; O2SAT 98
--- NOTE | 2021-10-12 14:05 | ED.GENADUL_ITS ---
Discharge Plan Disposition Patient Disposition: HOME Condition: Stable Discharge Details Clinical Impression: Injury of knee, left Primary Care Provider: Marie Loza ED Provider: Ramo Urena Home Meds and New Rx's Prescriptions: Continued sildenafil [Viagra] 100 mg tablet 100 mg PO As Directed Qty: 3 RF: 11 fluticasone propionate 50 mcg/actuation spray,suspension 2 spray JESSE DAILY PRN (Reason: allergy symptoms) Qty: 18.2 RF: 2 naproxen 500 mg tablet 500 mg PO BID Qty: 60 RF: 0 albuterol sulfate [Proventil HFA] 90 mcg/actuation HFA aerosol inhaler 2 puff inhalation Q6H PRN (Reason: shortness of breath or wheezing) Qty: 8.5 RF: 0 valsartan 80 mg tablet 160 mg PO DAILY Qty: 90 RF: 4 Libido-Max 1 cap PO DAILY RF: 0 methadone 10 mg/mL concentrate 55 mg PO DAILY RF: 0 (DME) Easy Touch SheathLock Syrg-Ndl 3 mL 22 gauge x 1 1/2 syringe See Rx Instructions .ROUTE .MEDSUPPLY Qty: 6 RF: 3 (DME) BD Regular Bevel Pennington 25 gauge x 5/8 needle See Rx Instructions .ROUTE .MEDSUPPLY Qty: 100 RF: 4 omeprazole 20 mg capsule,delayed release(DR/EC) 20 mg PO DAILY Qty: 90 RF: 3 atorvastatin 80 mg tablet 80 mg PO QPM RF: 0 Discharge Instructions Instructions: Swollen Knee Joint (ED) Additional Instructions: X-ray of your knee is unremarkable. Rest, elevate, cool compresses every 2 hours for 20 minutes. Wear knee brace and use crutches as needed, advance activity as tolerated. [id number] Tylenol and/or Motrin as directed for discomfort. Lastly, please contact our orthopedic team discussed outpatient reevaluation, as we discussed, MRI may be indicated for further evaluation. Referrals: Papo Napoles MD [ [facility] STAFF PHYSICIAN] - Discharge Data Discharge Date/Time-TO BE ENTERED AT DEPARTURE: 10/12/21 14:49 Medical Decision Making 41-year-old gentleman presents with a left knee injury sustained on 10-03. Normal visual inspection, no laxity on evaluation, but diffuse discomfort throughout. Neuro, vascular, tendon intact. Will obtain x-ray. X-ray unremarkable. Discussed x-ray findings with patient. Discussed disposition. Concern for internal derangement. Patient placed into a long-leg immobilizer and crutches with teaching given. Will refer to orthopedics in the meantime recommend resting, elevating, cool compresses along with [id number] Tylenol and/or Motrin as directed. Patient comfortable with this plan and has no additional questions or concerns. This documentation was generated using Jumpstarteration system, please disregard any oddities of phrase or misspellings. Medical Records Medical records reviewed: Yes I reviewed the patient's medical records. Imaging Data Radiologic Study: Attestation: I personally reviewed and interpreted this imaging study as follows: Imaging: X-Ray Radiologist's impression: Exam(s) XR KNEE LT 4V+ EXAM: XR KNEE LT 4V+ CLINICAL HISTORY: twist injury. TECHNIQUE: 2D digital imaging was performed. COMPARISON: No exams were available for comparison FINDINGS: BONES: No acute fracture is present. No bony destructive lesion is seen. Minimal periarticular spurring. JOINTS: The knee is normally aligned. No joint effusion is seen. SOFT TISSUE: Normal. IMPRESSION: No acute abnormality. HPI General Mode of arrival: ambulatory . Date/Time Provider Initiated Documentation: 10/12/21 13:06 . Limitations to Documentation: no limitations . Information obtained by: patient . History of Present Illness 41 year old M presents to the emergency department with the chief complaint of L knee injury, described as moderate, with intensity rated at 6. Quality is described as aching, and is localized to the lower extremity. Patient reports no radiation. Patient started experiencing this day(s) (9) and it has been constant. No relieving factors improve symptom(s), Movement worsens symptoms . Patient notes no other symptoms.. Patient did receive the following treatments prior to arrival, none Related Data Home Medications Medication Instructions Recorded Confirmed methadone 10 mg/mL oral concentrate 55 mg PO DAILY ml 10/13/18 10/12/21 syringe with needle, safety 3 mL #6 each 09/09/20 10/12/21 22 gauge x 1 1/2 needle (disp) 25 gauge 25 gauge x #100 each 09/11/20 10/12/21 5/8 omeprazole 20 mg capsule,delayed 20 mg PO DAILY #90 tab-cap 09/19/20 10/12/21 release albuterol sulfate 90 mcg/actuation 2 puff INHALATION Q6H PRN #8.5 g 11/04/20 10/12/21 aerosol inhaler fluticasone propionate 50 2 spray JESSE DAILY PRN #18.2 ml 01/23/21 10/12/21 mcg/actuation nasal spray,suspension naproxen 500 mg tablet 500 mg PO BID #60 tab 01/23/21 10/12/21 sildenafil 100 mg tablet 100 mg PO As Directed #3 tab-cap 01/23/21 10/12/21 atorvastatin 80 mg PO QPM 01/29/21 10/12/21 valsartan 80 mg tablet 160 mg PO DAILY #90 tab 01/30/21 10/12/21 Libido-Max 1 cap PO DAILY 04/28/21 10/12/21 Previous Rx's Medication Instructions Recorded syringe with needle, safety 3 mL #6 each 09/09/20 22 gauge x 1 1/2 needle (disp) 25 gauge 25 gauge x #100 each 09/11/20 5/8 omeprazole 20 mg capsule,delayed 20 mg PO DAILY #90 tab-cap 09/19/20 release albuterol sulfate 90 mcg/actuation 2 puff INHALATION Q6H PRN #8.5 g 11/04/20 aerosol inhaler fluticasone propionate 50 2 spray JESSE DAILY PRN #18.2 ml 01/23/21 mcg/actuation nasal spray,suspension naproxen 500 mg tablet 500 mg PO BID #60 tab 01/23/21 sildenafil 100 mg tablet 100 mg PO As Directed #3 tab-cap 01/23/21 valsartan 80 mg tablet 160 mg PO DAILY #90 tab 01/30/21 Allergies Allergy/AdvReac Type Severity Reaction Status Date / Time amlodipine Allergy Intermediate Drowsiness, Verified 10/12/21 13:07 chest pain lisinopril AdvReac Intermediate Cough Verified 10/12/21 13:07 General Stated Complaint: Orthopedic DUNG: 4 Review of Systems Constitutional Constitutional: Denies fever(s) and Denies weakness Musculoskeletal Musculoskeletal: Denies deformity, Reports arthralgias, Denies numbness, Reports stiffness and Denies tingling Integumentary/Breasts Skin/Breast: Denies erythema Neurologic Neurologic: Denies numbness, Denies tingling and Denies weakness PFSH All Active Problems Injury of knee, left (Acute) Opiate dependence (Acute) hx of IVDA-Dc/d in 2017, on methadone with [facility] Boil (Acute) Lymphadenopathy of head and neck region (Acute) Diarrhea (Acute) Foot laceration (Acute) Multifocal pneumonia (Acute) Gastroesophageal reflux disease without esophagitis (Acute 03/30/16) Right knee pain (Acute) Lipoma of forearm (Acute) Low back pain (Acute) Change in stool caliber (Acute) Family history of coronary artery disease in mother (Acute) At age 73 Elevated liver function tests (Acute) Hyperlipidemia (Acute) Essential hypertension (Acute 04/12/17) Testosterone deficiency in male (Acute) Smoker (Chronic) Medical History Allergic rhinitis Depressive disorder Episodic cluster headache, not intractable (07/26/17) Hyperhidrosis Murmur, cardiac Congenital Testicular hypofunction (05/26/12) Tobacco dependence Surgical History Appendectomy Pts states year or surgery was 2007 or 2008 EXCISION MASS, LIF H/O hand surgery Hx of tonsillectomy PROCEDURES OTHER REPAIR OF KNEE, 1998 Family History Mother Heart disease Father , age 70 Essential hypertension Diabetes Hyperlipidemia Lung cancer Sister Diabetes Brother Testicular cancer Maternal Grandfather Throat cancer Paternal Grandfather Diabetes Maternal Grandmother No problems noted. Paternal Grandmother Breast cancer Sister No problems noted. Social History Smoking/Tobacco Use Status: Current every day Tobacco Type: smokeless tobacco Smokeless tobacco user: chewing tobacco Second Hand Exposure: Yes Smoking risk assessment performed?: Yes Alcohol Intake: current Alcohol Intake frequency: a few times a week Alcohol type: hard liquor Drug use: Occasionally Substance use type: does not use and other Details: Methadone rx Details: methadone client Caregiver/Support person: No Household members: other Details: Mother Housing: house Communication Needs: None Do you need help understanding health information?: Never current occupation: [employer] Pets and animals: Yes Pets and animals: dog(s) Do you think of yourself as: straight/heterosexual Current gender identity: male What is your relationship status?: never How often do you talk on the phone with friends or family?: three or more times per week How often do you get together with friends or relatives?: twice per week How often do you attend christianity or sabianism services?: decline to answer Do you belong to any clubs or organized social groups?: no Panel score (0-1 are the most socially isolated patients): 1 What type of physical activity do you participate in: none Duration: 15-30 minutes/day Frequency: 5-6 times per week Korina/Evangelical: Nondenominational Special korina needs: No Seatbelt use: always Helmet use: Yes Helmet use: always Drive intox or ride w/intox water taxi driver: No Do you feel safe at home: Yes Do you feel safe in your relationship?: Yes Exam Const General: cooperative, healthy appearing, comfortable and no acute distress Orientation: alert and awake HENMT Head: normal to inspection, normocephalic and atraumatic Eyes Conjunctivae: conjunctivae normal Neck Neck: normal visual inspection, trachea midline and supple Resp Effort & Inspection: normal respiratory effort and able to speak in complete sentences Cardio Rate: regular rate Rhythm: regular rhythm Skin General skin exam: no rashes or lesions noted Neuro General: patient alert, patient awake, moves all extremities and no focal motor deficits Cognition: normal cognition Speech: speech normal Gait: antalgic Sensory Exam: no sensory deficits noted Extrem General: normal to inspection, full ROM and capillary refill normal Left lower extremity: normal to inspection, full ROM, normal capillary refill and knee Details: normal to inspection, tenderness (Diffuse, mild), normal ROM and knee ligament exam normal Details: anterior drawer test normal (Increased discomfort, no laxity), valgus stress test normal (Increased discomfort, no laxity) and varus stress test normal (Increased discomfort, no laxity); no swelling and no ecchymosis Psych Appearance: grossly normal Mental Status: mental status grossly normal Course Vital Signs Vital signs: Vital Signs Temperature 35.9 C L 10/12/21 13:02 Pulse 89 10/12/21 13:02 Respiratory Rate 16 10/12/21 13:02 Blood Pressure 156/94 H 10/12/21 13:02 Pulse Oximetry 98 10/12/21 13:02 Temperature 35.9 C L 10/12/21 13:02 Temperature Source Skin 10/12/21 13:02 Pulse 89 10/12/21 13:02 Respiratory Rate 16 10/12/21 13:02 Respiratory Effort 10/12/21 13:02 Blood Pressure 156/94 H 10/12/21 13:02 Blood Pressure Position Sitting 10/12/21 13:02 Pulse Oximetry 98 10/12/21 13:02 Oxygen Delivery Method Room Air 10/12/21 13:02 Oxygen Flow Rate 0 10/12/21 13:02 Pain Level 10 10/12/21 13:02 PAWSS Have you Been Recently Intoxicated or Drunk Within the Last 30 days?: Yes Have you Ever Experienced Previous Episodes of Alcohol Withdrawal?: No Have you ever Experienced Withdrawal Seizures?: No Have you ever Experienced Delirium Tremens(DT)s?: No Have you ever Experienced Blackouts?: Yes Have you ever Combined Alcohol with other Downers within the last 90 days?: No Have you ever Combined Alcohol with any other Substance of Abuse during the last 90 days?: No Positive Blood Alcohol level on Presentation? [PCS.BAL]: No Evidence of Increased Autonomic Activity (i.e. HR>120, tremor, sweating, agitation, nausea)?: No Result: 2
== END 2021-10-12 14:49 | disposition home or self-care (01) ==
PROVIDERS: Emergency Provider Physician Assistant; PCP Nurse Practitioner
DX: S89.82XA Other specified injuries of left lower leg, initial encounter (principal); X50.1XXA Overexertion from prolonged static or awkward postures, initial encounter; Y99.0 Civilian activity done for income or pay
CPT/HCPCS: 29505; 99283; 73564

== ENCOUNTER 2021-11-13 00:14 | Outpatient (CLI) | payer MEDICAID, SELFPAY ==
--- NOTE | 2021-11-13 06:30 | DI.MRI_ITS ---
Exam(s) MR LOWER JOINT LT WO EXAM: MR LOWER JOINT LT WO CLINICAL HISTORY: PAIN,internal derangement,m23.92. TECHNIQUE: Multiplanar multisequence MRI was performed. COMPARISON: CR XR KNEE LT 4V+ from 10/12/2021 FINDINGS: BONES: There is no fracture or contusion pattern. JOINTS: Articular cartilage is unremarkable. No effusion is present. TENDONS: Extensor mechanism: Unremarkable. Medial retinaculum: Unremarkable. Lateral retinaculum: Unremarkable. Popliteus: Unremarkable. MUSCLES: Unremarkable. MENISCI: There is a tear of the body and posterior horn of the medial meniscus. The lateral meniscus is unremarkable. SOFT TISSUES: There is a very small popliteal cyst. LIGAMENTS: Anterior Cruciate: Unremarkable. Posterior Cruciate: Unremarkable. Medial Collateral:Unremarkable. Lateral Collateral: Unremarkable. OTHER: IMPRESSION: Tear of the body and posterior horn of the medial meniscus. DATA REPOSITORY:
== END 2021-11-13 00:34 ==
PROVIDERS: PCP Nurse Practitioner; Visit Provider Student in an Organized Health Care Education/Training Program
DX: S83.242A Other tear of medial meniscus, current injury, left knee, initial encounter (principal); X58.XXXA Exposure to other specified factors, initial encounter
CPT/HCPCS: 73721

== ENCOUNTER 2021-12-15 04:09 | Outpatient (CLI) | payer MEDICAID, SELFPAY ==
[2021-12-15 12:26] LABS: Source Nasal/Nares
[2021-12-15 23:08] LABS: COVID-19 PCR Negative (Negative)
== END 2021-12-15 04:10 | disposition home or self-care (01) ==
LOC: LBO 04:09
PROVIDERS: Student in an Organized Health Care Education/Training Program; PCP Nurse Practitioner; Visit Provider Student in an Organized Health Care Education/Training Program
DX: Z20.822 Contact with and (suspected) exposure to COVID-19 (principal); Z01.818 Encounter for other preprocedural examination
CPT/HCPCS: 87635

== ENCOUNTER 2021-12-17 06:46 | Day surgery (SDC) | payer OTHER, SELFPAY ==
[2021-12-17 06:50] VITALS: BP 126/90; PULSE 97; RESP 18; TEMP 35.8; O2SAT 96
--- NOTE | 2021-12-17 06:53 | W.ANESPRE ---
General Info Date of Service Date Performed: 12/17/21 Height: 6 ft 1 in Weight: 117.934 kg Body Mass Index (BMI): 34.2 Surgical Procedure: Operation Date: 12/17/21 13:25 Proposed Procedure Side Surgeon p Knee Arthroscopy w/any indicated meniscal, chondral and synovial surgery Felipe Beavers MD Meds Allergies and Home Medications Allergies Allergy/AdvReac Type Severity Reaction Status Date / Time amlodipine Allergy Intermediate Drowsiness, Verified 12/17/21 07:01 chest pain lisinopril AdvReac Intermediate Cough Verified 12/17/21 07:01 Home Medication Medication Instructions Recorded methadone 10 mg/mL oral concentrate 55 mg PO DAILY ml 10/13/18 albuterol sulfate 90 mcg/actuation 2 puff INHALATION Q6H PRN #8.5 g 11/04/20 aerosol inhaler (Proventil HFA) fluticasone propionate 50 2 spray JESSE DAILY PRN #18.2 ml 01/23/21 mcg/actuation nasal spray,suspension sildenafil 100 mg tablet (Viagra) 100 mg PO As Directed #3 tab-cap 01/23/21 atorvastatin 80 mg tablet 80 mg PO QPM 01/29/21 Libido-Max 1 cap PO DAILY 04/28/21 omeprazole 20 mg capsule,delayed 20 mg PO DAILY #90 tab-cap 10/15/21 release valsartan 160 mg tablet 160 mg PO DAILY #90 tab 10/15/21 meloxicam 7.5 mg tablet See Rx Instructions PO DAILY PRN 11/02/21 #60 tab Current Visit Medications: Current Medications Generic Name Dose Route Start Last Admin Trade Name Freq PRN Reason Stop Dose Admin Ringer's Solution 1,000 mls @ 100 mls/hr 12/17/21 06:00 IV 01/15/22 23:59 INFUSION JESENIA Cefazolin Sodium 3,000 mg/ 100 mls @ 200 mls/hr 12/17/21 06:00 Sodium Chloride IVPB 12/17/21 16:00 PREOP JESENIA IV Miscellaneous Supplies 1 each 12/17/21 06:00 Iv Access IV 01/15/22 23:59 DIRECTED JESENIA Sodium Chloride 0 ml 12/17/21 06:00 Normal Saline Flush 10 Ml Syr IV 01/15/22 23:59 PRN PRN Sodium Chloride 0 ml 12/17/21 06:00 Normal Saline 10 Ml Vial IJ 01/15/22 23:59 DIRECTED PRN Sterile Water 0 ml 12/17/21 06:00 Water,Injection,Sterile 10 Ml Vial IJ 01/15/22 23:59 DIRECTED PRN PFSH Active Problems Active Problems: Problem Status Onset Code Acute medial meniscus tear of left knee 10/03/21 S83.242A Opiate dependence F11.20 Gastroesophageal reflux disease without esophagitis 03/30/16 K21.9 Lipoma of forearm D17.20 Low back pain M54.5 Family history of coronary artery disease in mother Z82.49 Elevated liver function tests R79.89 Hyperlipidemia E78.5 Essential hypertension 04/12/17 I10 Testosterone deficiency in male E29.1 Smoker F17.200 Medical History Medical History Allergic rhinitis Boil Change in stool caliber Depressive disorder Diarrhea Episodic cluster headache, not intractable (07/26/17) Foot laceration Hyperhidrosis Lymphadenopathy of head and neck region Multifocal pneumonia Murmur, cardiac Congenital Right knee pain Testicular hypofunction (05/26/12) Tobacco dependence Surgical History Surgical History Appendectomy Pts states year or surgery was 2007 or 2008 EXCISION MASS, LIF H/O hand surgery Hx of tonsillectomy PROCEDURES OTHER REPAIR OF KNEE, 1998 Tobacco Smoking/Tobacco Use Status: Current every day Tobacco Type: smokeless tobacco Smokeless tobacco user: chewing tobacco Passive smoking exposure: No Second hand exposure: Yes Alcohol Alcohol Intake: current Alcohol intake frequency: a few times a week Alcohol type: hard liquor Substance Use Substance use: Never Substance use type: former substance user and other Details: Methadone rx Details: methadone client Vital Signs and Lab Results Lab Results Blood Type / Crossmatch: No Data to Display Complete Blood Count: No Data to Display Complete Metabolic Panel: No Data to Display Liver Function Panel: No Data to Display Coagulation Panel: No Data to Display Cardiac Panel: No Data to Display Arterial Blood Gas: No Data to Display Venous Blood Gas: No Data to Display Pancreas Panel: No Data to Display Thyroid Panel: No Data to Display Infectious Disease: Coronavirus (COVID-19)(PCR) Negative (Negative) 12/15/21 08:55 12/15/21 Coronavirus 2019 Source Nasal/Nares 12/15/21 08:55 12/15/21 Blood Cultures: No Data to Display Toxicology Panel: No Data to Display Imaging and Studies Imaging and Studies Study information below may be from another EMR and interpreted by another provider. Please see original notes in EMR for more complete details. EKG Summary: 01/30: sinus rhythm. Anesthesia Assessment and Plan Anesthesia History Personal History: No History of Anesthesia Complications Family History: No Family History of Anesthesia Complications Exercise Tolerance Exercise Tolerance: Metabolic Equivalents>4 Pertinent Negatives Pertinent Negatives: No Symptoms of GERD, No Major Cardiovascular Symptoms or Complaints, No Major Pulmonary Symptoms or Complaints (Albuterol, used 2 weeks ago) and No History of CVA/TIA Cardiac & Pulmonary Exam Cardiac Exam: Heart Murmur Present Pulmonary Exam: Clear Bilateral Breath Sounds Implantable Cardiac Device Does patient have a Pacemaker or an ICD?: No Airway Exam Known Difficult Airway: No Mallampati Class: 3 Mouth Opening: Normal (> 3cm) Thyromental Distance: Greater than 3 cm Facial Hair: Full Alberts Neck Range of Motion: Full ROM Neck Circumference: Thick Teeth Condition: Normal Dentition ASA Classification ASA Score: ASA 2 Emergency Case?: No NPO Status NPO Status: NPO Clears >2 hours, Solids >8 hours Anesthesia Plan Resuscitation Status: Full Code Anesthesia Technique: General Anesthesia Airway Planned: LMA Monitors Used: Standard Monitors Preoperative Comments:: 41 yo male knee scope. Sig PMHx: chronic opioid/methadone, GERD (omeprazole), HTN (valsartan), smoker, occ EtOH.
[2021-12-17 07:24] VITALS: BMI 34.2
[2021-12-17] MEDS: Lactated Ringers 1,000 ML 100 ML IV (07:30)
[2021-12-17] MEDS: ceFAZolin 3,000 MG in Normal Saline 100 ML 200 MG IVPB (07:31)
[2021-12-17] MEDS: Bupivacaine 0.25% Pres-Free 30 ML VIAL (08:00)
[2021-12-17] MEDS: MORPHine 4 MG/ML SYR (08:00)
[2021-12-17] MEDS: EPINEPHrine 30 MG/30 ML VIAL (08:06)
[2021-12-17 08:30] VITALS: BP 127/94; PULSE 83; RESP 13; TEMP 36.4; O2SAT 94
--- NOTE | 2021-12-17 08:31 | ROE_ITS ---
Date of service: 12/17/21 Time of Service: 08:00 Operative Note Operative Note DATE OF PROCEDURE: 12/17/21 PRE-OP DIAGNOSIS: Left knee 1. Medial meniscus tear Left knee 1. Medial meniscus tear 2. Synovitis with prominent medial plica 3. Chondromalacia patella PROCEDURE: Left 1. Partial medial meniscectomy, CPT #13949 2. Greater than 2 compartment synovectomy, CPT #75504: Medial gutter plica excision, intercondylar, and patellofemoral 3. Chondroplasty, CPT #29377: Patellar SURGEON: Felipe Beavers HYDRAULIC AND PLUMBING INSTALLER: Rich Jalloh ANESTHESIA TYPE: Local By Surgeon and General LMA/ETT Refer to Anesthesia Record ESTIMATED BLOOD LOSS: 5 PATHOLOGY: none sent TOURNIQUET TIME: 0 COMPLICATIONS: None Patient was transported to: PACU Patient's condition: stable Indications: Please see complete medical record for details. Findings: Exam under anesthesia: Full range of motion, no instability. Medial mechanical symptoms. Arthroscopic findings: Moderate diffuse patellar undersurface softening cartilage and thinning with discrete higher grade fissures near full-thickness centrally superiorly. Prominent medial synovial fold plica impinging on medial femoral condyle. Prominent intercondylar and patellofemoral synovitis. Complex posterior horn medial meniscus tear. Procedure Description: In the operating room, genral anesthesia was induced. The patient was positioned supine on the operating room table. All bony prominences were well- padded. Preoperative antibiotics were administered. The knee was prepped and draped in the usual sterile fashion. The correct patient, procedure, and side of the procedure were all verified prior to incision. Exam under anesthesia was performed. 10 cc of bupivacaine and lidocaine mixture containing epinephrine was infiltrated about the planned anteromedial and anterolateral knee arthroscopy portals. The portals were established and a complete diagnostic arthroscopy was performed with relevant findings detailed above. The mechanical shaver was used to remove pathologic synovium from the patellofemoral and intercondylar areas as well as excise a prominent medial plica. Using a combination of hand instruments including meniscal biters and a power shaver and working through the anteromedial and anterolateral compartments the posterior horn of the medial meniscus meniscus was debrided of all torn tissue to a stable margin. Care was taken to preserve as much meniscus tissue was possible. The meniscal remnant was probed and found to have a stable margin, stable root, and no other tears The undersurface of the patella was inspected again and there loose cartilage prominent edges and flaps about the lesion that were debrided only as much as necessary using mechanical shaver to a stable margin. Under direct arthroscopic visualization an 18-gauge needle was passed into the knee from superolateral into the suprapatellar pouch. The knee was copiously irrigated with arthroscopic fluid until there was a clear effluent before being drained of all fluid. The anteromedial and anterolateral portals were closed in 3-0 Monocryl in a buried interrupted fashion. 20 cc mixture of Vivacaine and lidocaine with epinephrine containing 4 mg of morphine was infiltrated into the knee through the previously placed needle. Mastisol, Steri-Strips, and 4 x 4 gauze were applied over the incisions followed by sterile soft roll. The knee was then wrapped gently with an SANAZ comressive bandage. The patient awoke from anesthesia without complication and was transferred to the recovery room in a stable condition.
[2021-12-17 08:35] VITALS: BP 91/47; PULSE 87; RESP 18; TEMP 36.4; O2SAT 95
--- NOTE | 2021-12-17 08:38 | W.PM.DSUDISC ---
Discharge Plan Disposition Patient Disposition: HOME Condition: Stable Discharge Details Reason For Visit: Left knee surgery Attending Provider: Felipe Beavers Primary Care Provider: Marie Loza Home Meds and New Rx's Prescriptions: New naproxen 250 mg tablet 250 - 500 mg PO BID PRNQty: 40 0RF Rx Instructions: take with a meal aspirin 81 mg tablet,delayed release (DR/EC) 81 mg PO DAILY 14 Days Qty: 14 0RF oxycodone 5 mg tablet 5 - 10 mg PO Q4H MDD 30 mg PRN (Reason: moderate to severe pain) Qty: 18 0RF Continued sildenafil [Viagra] 100 mg tablet 100 mg PO As Directed Qty: 3 11RF Rx Instructions: PO As Directed; 1/2 to 1 tab 2 hours before intercourse fluticasone propionate 50 mcg/actuation spray,suspension 2 spray JESSE DAILY PRN (Reason: allergy symptoms) Qty: 18.2 2RF Rx Instructions: administer 1 spray in to each nostril daily PRN albuterol sulfate [Proventil HFA] 90 mcg/actuation HFA aerosol inhaler 2 puff inhalation Q6H PRN (Reason: shortness of breath or wheezing) Qty: 8.5 0RF Libido-Max 1 cap PO DAILY 0RF meloxicam 7.5 mg tablet See Rx Instructions PO DAILY PRN (Reason: Pain) Qty: 60 1RF Rx Instructions: 1-2 tabs PO daily PRN; methadone 10 mg/mL concentrate 70 mg PO DAILY 0RF Label Comments: 07/26/17: 49mg LR 04/29/17: 55mg. -BR Rx Instructions: [facility] omeprazole 20 mg capsule,delayed release(DR/EC) 20 mg PO DAILY Qty: 90 4RF valsartan 160 mg tablet 160 mg PO DAILY Qty: 90 4RF atorvastatin 80 mg tablet 80 mg PO QPM 0RF Discharge Instructions Additional Instructions: Surgery: Left knee arthroscopy with partial medial meniscectomy, patellar chondroplasty, and synovectomy Activity: Weightbearing as tolerated. Advance range of motion as comfort allows. No knee brace or crutches needed as soon as comfortable. Recommend avoiding sports, pivoting, and squatting for 6-8 weeks. A physical therapy prescription will be sent electronically to start in 2 to 3 weeks. Prescriptions: Aspirin 81 mg take 1 daily to prevent a blood clot for 14 days Naproxen 250 mg take 1-2 every 12 hours with a meal as needed for moderate pain (do not use at same time as meloxicam) Oxycodone 5 mg take 1-2 every 4-6 hours as needed for severe pain You may use [id number] Tylenol (acetaminophen) as needed for mild pain. These pain medications may be taken all at once or in different combinations as needed. Also, recommend Colace (docusate) as a stool softener as surgery and pain medicine cause constipation. Dressings: Leave dressing in place for 3 days. May then remove and leave open to air or cover incisions with Band-Aids. May shower after 5 days. Follow-up: 10-[address] Beavers Let us know right away if you develop any redness, drainage, fevers, chest pain, or trouble breathing. Do not drink alcohol or drive for at least 24 hours after anesthesia. Please call the office during business hours with any questions or concerns. Referrals: Felipe Beavers MD [ [facility] STAFF PHYSICIAN] - Discharge Orders Discharge Orders: Discharge Order (Routine); Ordered 12/17/21 Ordered By: Felipe Beavers DS: Diagnosis Discharge Diagnosis (1) Acute medial meniscus tear of left knee: Status: Acute (2) Chondromalacia patellae of left knee: Status: Acute (3) Synovial plica of left knee: Status: Acute
[2021-12-17 08:40] VITALS: BP 93/52; PULSE 78; RESP 27; TEMP 36.4; O2SAT 95
[2021-12-17 08:54] VITALS: BP 105/56; PULSE 85; RESP 18; TEMP 36.3; O2SAT 94
--- NOTE | 2021-12-17 09:14 | W.ANESPOSTOP ---
Postoperative Evaluation Date, Time and Location Date Performed: 12/17/21 Time Performed: 09:14 Patient Location: Day Surgery Unit Vital Signs Most Recent Imported Vital Signs: Most Recent Vital Signs Temp Pulse Resp BP Pulse Ox 36.3 C L 85 18 105/56 L 94 12/17/21 08:54 12/17/21 08:54 12/17/21 08:54 12/17/21 08:54 12/17/21 08:54 Pain Score Most Recent Pain Score: Most Recent Pain Score Pain Level 6 12/17/21 08:54 Assessment Mental Status: Awake (Alert & Oriented to Patient Baseline) Airway and Respiratory Function: Patent airway with normal (patient baseline) respiratory exam Cardiovascular Function: Hemodynamically Stable Hydration Status: Adequately Hydrated Nausea & Vomiting: No Nausea or Vomiting Pain: Pain is tolerable per patient Peripheral Nerve Block: Patient did not receive a nerve block
[2021-12-17 09:24] VITALS: BP 104/63; PULSE 80; RESP 17; TEMP 36.3; O2SAT 94
== END 2021-12-17 09:50 | disposition home or self-care (01) ==
PROVIDERS: PCP Nurse Practitioner; Visit Provider Student in an Organized Health Care Education/Training Program
PROC: (CPT 29870; principal; 2021-12-17 07:30)
DX: S83.242A Other tear of medial meniscus, current injury, left knee, initial encounter (principal); M67.52 Plica syndrome, left knee; M22.42 Chondromalacia patellae, left knee; X50.1XXA Overexertion from prolonged static or awkward postures, initial encounter; Y93.23 Activity, snow (alpine) (downhill) skiing, snowboarding, sledding, tobogganing and snow tubing; I10 Essential (primary) hypertension; E78.5 Hyperlipidemia, unspecified; K21.9 Gastro-esophageal reflux disease without esophagitis; F17.210 Nicotine dependence, cigarettes, uncomplicated
CPT/HCPCS: 29876; 29881; J0690; J1100; J1885; J2250; J2270; J2405; J2704; J3475

== ENCOUNTER → 2022-07-14 01:22 | Outpatient (CLI) | payer MEDICAID, SELFPAY ==
--- NOTE | 2022-07-14 07:15 | DI.MRI_ITS ---
Exam(s) MR UPPER EXTREMITY LT WO/W CLINICAL HISTORY: soft tissue mass, m79.89, ? sarcoma. TECHNIQUE: Multiplanar multisequence MRI Examination was performed. CONTRAST MATERIAL: IV Contrast: 20 mL of Dotarem contrast administered. COMPARISON: None FINDINGS: STIR sequences limited by pulsation artifact. A marker was placed over the mass at the proximal, ulnar aspect of the forearm. Bones: There is no fracture or contusion pattern. No bone marrow edema is present Musculotendinous structures: Tendons appear intact. There is no muscular edema, myositis or focal co llection. No muscular injury Beneath area marked, there is an ovoid fatty signal lesion measuring roughly 5.3 x 2.4 by 2.5 cm. Th ere are no areas of enhancement. The findings are consistent with a lipoma. IMPRESSION: Palpable mass is consistent with a simple lipoma. DATA REPOSITORY:
[2022-07-14 10:03] LABS: CREATININE 1.2 mg/dL (0.70-1.30); Estimated GFR 77.43 (mL/min/1.73m2)
[2022-07-14] MEDS: Gadoterate meglumine 20 ML SYRINGE IVP (10:57)
[2022-07-14] MEDS: Normal Saline Flush 10 ML SYR IVP (10:58)
== END ==
PROVIDERS: PCP Nurse Practitioner Family; Visit Provider Surgery
DX: M79.89 Other specified soft tissue disorders (principal); I10 Essential (primary) hypertension
CPT/HCPCS: 36415; 73220; 82565

== ENCOUNTER 2022-09-09 02:12 | Outpatient (CLI) | payer MEDICAID, SELFPAY ==
[2022-09-09 12:44] LABS: COMMENT (LAB VIEW ONLY) 147.33 mg/dL; Microalb ug/mg Crea 6.8 ug/mg Cr
[2022-09-09 12:45] LABS: ALT 51 U/L (16-63); AST 27 U/L (15-37); Albumin 4.2 g/dL (3.4-5.0); Alkaline Phosphatase 127 U/L (46-116); Anion Gap 5.6 mmol/L (3-11); BUN 18 mg/dL (7-18); Bilirubin, Total 0.3 mg/dL (0.2-1.0); CO2 31.4 mmol/L (21.0-32.0); CREATININE 1.2 mg/dL (0.70-1.30); Calcium 10.1 mg/dL (8.5-10.1); Calculated LDL 129 mg/dL (<100); Chloride 100 mmol/L (98-107); Cholesterol 228 mg/dL (<200); Estimated GFR 77.43 (mL/min/1.73m2); Glucose 103 mg/dL (74-106); HDL Cholesterol 62 mg/dL (40-60); Potassium 4.4 mmol/L (3.5-5.1); Sodium 137 mmol/L (136-145); Total Protein 8.4 g/dL (6.4-8.2); Triglyceride 186 mg/dL (<150)
== END 2022-09-09 02:13 | disposition home or self-care (01) ==
LOC: LOS 02:12
PROVIDERS: PCP Nurse Practitioner Family; Visit Provider Nurse Practitioner Family
DX: E78.5 Hyperlipidemia, unspecified (principal); I10 Essential (primary) hypertension
CPT/HCPCS: 36415; 80053; 80061; 82043; 82570

== ENCOUNTER 2022-09-14 01:17 | Outpatient (CLI) | payer OTHER, SELFPAY ==
--- NOTE | 2022-09-14 06:45 | DI.MRI_ITS ---
Exam(s) MR LOWER JOINT LT WO EXAM: MR LOWER JOINT LT WO CLINICAL HISTORY: ? MENISCAL TEAR,S/P MEDIAL MENISCECTOMY LT KNEE, Z98.890 TECHNIQUE: Multiplanar multisequence MRI of the knee was performed. COMPARISON: CR XR KNEE LT 4V+ from 10/12/2021 MR MR LOWER JOINT LT WO from 11/13/2021 FINDINGS: EFFUSION: There is a mild amount of increased joint fluid. There is also a small septated Patterson cyst in medial popliteal fossa measuring 1.5 cm craniocaudal by 0.6 cm AP 0.9 cm wide. MARROW:There is now mild bone contusion signal in the medial tibial plateau and extending into the gabriel bjacent medial metaphysis, located anteriorly. Also some mild bone edema in the outer aspect of the medial femoral condyle. No bone edema in the lateral compartment nor in the fibular head and neck. There are no significant osseous lesions. PATELLOFEMORAL COMPARTMENT: The quadriceps tendon is intact. There are no tears of patellar tendon. However, there is mild increased intraosseous signal now evident in the most inferior aspect of the patella adjacent to the patellar ligament insertion and extending into the superior aspect of the Hof fa intra-articular fat pad, these findings not evident on the prior MRI scan of November 2021. Mild increased signal noted in the retropatellar cartilage. No prominent thinning nor deep fissure. No osteochondral defects patella.There is no intraosseous signal to suggest recent patellar dislocat ion. There are no patellar retinacular tears. CRUCIATE LIGAMENTS: The anterior cruciate ligament is intact.The posterior cruciate ligament is intac t. MEDIAL COMPARTMENT/MEDIAL MENISCUS: There is an oblique tear in the posterior horn the medial meniscu s outer 3rd. This violates the inferior articular surface. Previously present small degenerative me niscal cyst at this level is no longer seen. No new tears in the anterior horn of the medial meniscu s the. Meniscal root appears intact. There is no obvious meniscal capsular separation.. There is mild thinning of the articular cartilage over the medial femoral condyle. No osteochondral defect nor bone edema in the femoral condyle weight-bearing surface. MEDIAL COLLATERAL LIGAMENT: Intact LATERAL COMPARTMENT/LATERAL MENISCUS: There is no evidence of lateral meniscal tear.There are no olvin dral defects, osteochondral defects, subarticular marrow edema, nor osteophytes evident. ILIOTIBIAL BAND: Intact LATERAL COLLATERAL LIGAMENT COMPLEX: The fibular collateral ligament is intact. The biceps femoris t endon is intact.Popliteus muscle and tendon are intact. IMPRESSION: 1. Compared to the prior MRI of 11/13/2021 there is now an oblique tear in the outer 3rd of the poste rior horn of the medial meniscus which appears somewhat different than the prior tear which may have undergone interval instrumentation. No bucket-handle configuration. No meniscocapsular separation. The previously present small para meniscal cyst is no longer seen. Anterior horn appears unchanged. Lateral meniscus appears intact. 2. There is mild bone edema evident in the medial compartment both in the anterior aspect of the tibi al plateau subjacent to the anterior horn of the medial meniscus as well as in the outer non subartic ular aspect of the medial femoral condyle. The adjacent attachment of the MCL at this level appears intact. There is no evidence of MCL tear. 3. There is new increased signal at the junction of the superior aspect of the patellar ligament and inferior pole the patella/adjacent most superior aspect of the anterior intra-articular Hoffa fat pad . This finding was not evident on the prior November 2021 MRI. There is no high-grade tear nor promine nt tendinitis signal in the patellar ligament. 4. There are no significant cruciate nor collateral ligament tears. 5. Small amount of increased joint fluid and small 1 cm Patterson's cyst noted. DATA REPOSITORY:
== END 2022-09-14 01:37 ==
LOC: DI 01:23
PROVIDERS: PCP Nurse Practitioner Family; Visit Provider Student in an Organized Health Care Education/Training Program
DX: Z98.890 Other specified postprocedural states (principal); S83.242A Other tear of medial meniscus, current injury, left knee, initial encounter; M71.22 Synovial cyst of popliteal space [Baker], left knee
CPT/HCPCS: 73721

== ENCOUNTER 2022-09-21 11:08 | Day surgery (SDC) | payer MEDICAID, SELFPAY ==
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
--- NOTE | 2022-09-20 21:25 | PDOC.DSDIS_ITS ---
Date of service: 09/21/22 Time of Service: 12:50 Discharge Plan Disposition Patient Disposition: Home Condition: Good Discharge Details Reason For Visit: left elbow lipoma Attending Provider: John Nguyen Primary Care Provider: Joe Hernandez Home Meds and New Rx's Prescriptions: Continued fluticasone propionate 50 mcg/actuation spray,suspension 2 spray JESSE DAILY PRN (Reason: allergy symptoms) Qty: 18.2 2RF Rx Instructions: administer 1 spray in to each nostril daily PRN sildenafil [Viagra] 100 mg tablet 100 mg PO As Directed Qty: 3 11RF Rx Instructions: PO As Directed; 1/2 to 1 tab 2 hours before intercourse atorvastatin 80 mg tablet 80 mg PO QPM Qty: 90 3RF methadone 10 mg/mL concentrate 65 mg PO DAILY Label Comments: 07/26/17: 49mg LR 04/29/17: 55mg. -BR Rx Instructions: [facility] omeprazole 20 mg capsule,delayed release(DR/EC) 20 mg PO DAILY Qty: 90 4RF valsartan 160 mg tablet 160 mg PO DAILY Qty: 90 4RF albuterol sulfate [Proventil HFA] 90 mcg/actuation HFA aerosol inhaler 2 puff inhalation Q6H PRN (Reason: shortness of breath or wheezing) Qty: 8.5 0RF naproxen 250 mg tablet 250 - 500 mg PO BID PRNQty: 40 0RF Rx Instructions: take with a meal Discharge Instructions Instructions: Lipoma Removal (DC) Additional Instructions: 1. Resume all of your medications. 2. Okay to use tylenol and ibuprofen over the counter as needed. You can also use ionf-nel-brfvggx treatments like IcyHot creams, or lidocaine patches in the area of the surgical site. 3. Heating pads and/or ice packs are fine to use in the area to help with pain 4. Leave bandage in place for 24 hours, then remove. 5. Shower with warm soapy water. Pat dry. Use a bandaid if needed to protect your clothing. 6. No soaking or tub baths until I see you in the office. 7. No heavy lifting until I see you in the office. 8.Call the office (or go directly to the emergency room after hours) if you notice any of the following: Develop chills (warm to touch), or if you have a thermometer and your temperature is above 101 Difficulty breathing or difficultly swallowing Persistent vomiting Any bleeding ? exceeding one tablespoon 9. Call your physician if the site where your intravenous was started becomes red, swollen, painful, and warm to touch. Referrals: John Nguyen MD [ [facility] STAFF PHYSICIAN] - (10-14 days routine follow up) Activity:: Activity as Tolerated Remove Dressings/Wound Care:: 24 hours Shower/Bathe:: 24 hours Diet:: As Tolerated Discharge Orders Discharge Orders: Discharge Order (Routine); Ordered 09/20/22 Ordered By: John Nguyen DS: Diagnosis Discharge Diagnosis (1) Soft tissue mass: Status: Acute Asessment and Plan: AJ, we excised the soft tissue mass on your forearm without any difficulty today. All characteristics appeared consistent with a simple lipoma. I believe we were able to remove this entirely. Hopefully, it will not come back. Follow the discharge instructions attached here, and we look forward to seeing you in the office for routine postoperative visit.
--- NOTE | 2022-09-20 21:27 | W.PM.OP ---
Date of service: 09/21/22 Time of Service: 12:52 Operative Note Operative Note DATE OF PROCEDURE: 09/21/22 PRE-OP DIAGNOSIS: Left elbow lipoma POST-OP DIAGNOSIS: same PROCEDURE: Excision and primary closure of left elbow lipoma SURGEON: John Nguyen CONTROL VALVE MECHANIC: Mariya Garland ANESTHESIA TYPE: Local By Surgeon and MAC Refer to Anesthesia Record ESTIMATED BLOOD LOSS: 15 PATHOLOGY: none sent COMPLICATIONS: None Patient was transported to: same day Patient's condition: stable Indications: ROBERT is a 41-year-old male with a rubbery mass on the volar aspect of his left elbow. Given its size, and some of the symptoms he complained of in the forearm, we utilized a preoperative MRI to better define it. It seemed consistent with a lipoma. Findings: Left forearm lipoma Procedure Description: After the initiation of monitored anesthetic care, I prepped and draped the left arm, using local anesthetic, established a generous field block in the area. Next, I made a longitudinal incision over the area of the mass. I dissected down through the subcutaneous fat, and mobilized a well-defined rounded fatty tumor consistent with a lipoma. I performed circumferential dissection elevating it off the underlying soft tissues. Once the mass was completely mobilized and from the soft tissues, it was handed off the field. The surgical site was examined. It was hemostatic I irrigated it, and closed the subcutaneous fat with interrupted Vicryl's. I closed the skin with running subcuticular sutures. Bandages were applied, the patient was allowed awaken from anesthesia, and he was transferred to the same-day surgery unit for recovery.
[2022-09-21 11:32] VITALS: BP 128/95; PULSE 98; RESP 20; TEMP 36.1; O2SAT 94
--- NOTE | 2022-09-21 11:53 | ANES.PREOP_ITS ---
General Info Date of Service Date Performed: 09/21/22 Height: 6 ft Weight: 131.542 kg Body Mass Index (BMI): 39.3 Surgical Procedure: Operation Date: 09/21/22 10:55 Proposed Procedure Side Surgeon p Excision and closure left elbow Lipoma Left John Nguyen MD Meds Allergies and Home Medications Allergies Allergy/AdvReac Type Severity Reaction Status Date / Time amlodipine Allergy Intermediate Drowsiness, Verified 09/20/22 08:21 chest pain lisinopril AdvReac Intermediate Cough Verified 09/20/22 08:21 Home Medication Medication Instructions Recorded methadone 10 mg/mL oral concentrate 65 mg PO DAILY 10/13/18 fluticasone propionate 50 2 spray intranasal DAILY PRN 01/23/21 mcg/actuation nasal allergy symptoms #18.2 mL spray,suspension omeprazole 20 mg capsule,delayed 20 mg PO DAILY #90 tab-caps 10/15/21 release valsartan 160 mg tablet 160 mg PO DAILY #90 tabs 10/15/21 naproxen 250 mg tablet 250 - 500 mg PO BID PRN #40 tabs 12/17/21 albuterol sulfate 90 mcg/actuation 2 puff inhalation Q6H PRN 07/22/22 aerosol inhaler (Proventil HFA) shortness of breath or wheezing #8.5 grams atorvastatin 80 mg tablet 80 mg PO QPM #90 tabs 08/30/22 sildenafil 100 mg tablet (Viagra) 100 mg PO As Directed #3 tab-caps 08/30/22 Current Visit Medications: Current Medications Generic Name Dose Route Start Last Admin Trade Name Freq PRN Reason Stop Dose Admin Acetaminophen 1,000 mg 09/21/22 06:00 Acetaminophen 500 Mg Tab PO 09/21/22 16:00 PREOP JESENIA Celecoxib 200 mg 09/21/22 06:00 Celecoxib 200 Mg Cap PO 09/21/22 16:00 PREOP JESENIA Gabapentin 600 mg 09/21/22 06:00 Gabapentin 300 Mg Cap PO 09/21/22 16:00 PREOP JESENIA Hydromorphone HCl 0.2 mg 09/20/22 21:28 Hydromorphone 2 Mg/Ml Syr IVP Q1H PRN PRN Ringer's Solution 1,000 mls @ 80 mls/hr 09/21/22 06:00 IV 10/20/22 23:59 INFUSION JESENIA Cefazolin Sodium/Dextrose 2 gm in 50 mls @ 100 mls/hr 09/21/22 06:00 Ancef Duplex IVPB 09/21/22 16:00 PREOP JESENIA IV Miscellaneous Supplies 1 each 09/21/22 06:00 Iv Access IV 10/20/22 23:59 DIRECTED JESENIA Sodium Chloride 0 ml 09/21/22 06:00 Normal Saline Flush 10 Ml Syr IV 10/20/22 23:59 PRN PRN Sodium Chloride 0 ml 09/21/22 06:00 Normal Saline 10 Ml Vial IJ 10/20/22 23:59 DIRECTED PRN Sterile Water 0 ml 09/21/22 06:00 Water,Injection,Sterile 10 Ml Vial IJ 10/20/22 23:59 DIRECTED PRN Tramadol HCl 50 mg 09/20/22 21:28 Tramadol 50 Mg Tab PO Q6H PRN PRN Pain PFSH Active Problems Active Problems: Problem Status Onset Code Soft tissue mass M79.89 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, left knee 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 Status post medial meniscectomy of left knee 12/16/21 Z98.890 Opiate dependence F11.20 Gastroesophageal reflux disease without esophagitis 03/30/16 K21.9 Lipoma of forearm D17.20 Low back pain M54.5 Family history of coronary artery disease in mother Z82.49 Elevated liver function tests R79.89 Hyperlipidemia E78.5 Essential hypertension 04/12/17 I10 Testosterone deficiency in male E29.1 Smoker F17.200 Medical History Medical History Allergic rhinitis Boil Change in stool caliber Depressive disorder Diarrhea Episodic cluster headache, not intractable (07/26/17) Foot laceration Hyperhidrosis Lymphadenopathy of head and neck region Multifocal pneumonia Murmur, cardiac Congenital Right knee pain Testicular hypofunction (05/26/12) Tobacco dependence Medical History Comments:: Pt states when he had his tonsils out he was told he was loud and cursing at staff and couldn't look at lights. Surgical History Surgical History Appendectomy Pts states year or surgery was 2007 or 2008 EXCISION MASS, LIF H/O hand surgery Hx of tonsillectomy PROCEDURES OTHER REPAIR OF KNEE, 1998 Tobacco Smoking/Tobacco Use Status: Current every day Tobacco Type: smokeless tobacco Smokeless tobacco user: chewing tobacco Passive smoking exposure: No Second hand exposure: Yes Alcohol Alcohol Intake: current Alcohol intake frequency: a few times a week Alcohol type: hard liquor Substance Use Substance use: Never Substance use type: former substance user and other Details: Methadone rx Details: methadone client Vital Signs and Lab Results Vital Signs Comment Vital Signs Comment:: Temp Pulse Resp BP Pulse Ox 36.1 C L 98 H 20 128/95 H 94 09/21/22 11:32 09/21/22 11:32 09/21/22 11:32 09/21/22 11:32 09/21/22 11:32 Lab Results Blood Type / Crossmatch: No Data to Display Complete Blood Count: No Data to Display Complete Metabolic Panel: Sodium 137 mmol/L (136-145) 09/09/22 08:42 Potassium 4.4 mmol/L (3.5-5.1) 09/09/22 08:42 Chloride 100 mmol/L (98-107) 09/09/22 08:42 Carbon Dioxide 31.4 mmol/L (21.0-32.0) 09/09/22 08:42 BUN 18 mg/dL (7-18) 09/09/22 08:42 Creatinine 1.2 mg/dL (0.70-1.30) 09/09/22 08:42 Est GFR (CKD-EPI 2020) 77.43 (mL/min/1.73m2) 09/09/22 08:42 Calcium 10.1 mg/dL (8.5-10.1) 09/09/22 08:42 Albumin 4.2 g/dL (3.4-5.0) 09/09/22 08:42 Glucose 103 mg/dL (74-106) 09/09/22 08:42 Liver Function Panel: Alanine Aminotransferase (ALT/SGPT) 51 U/L (16-63) 09/09/22 08: 42 Aspartate Amino Transf (AST/SGOT) 27 U/L (15-37) 09/09/22 08:42 Coagulation Panel: No Data to Display Cardiac Panel: No Data to Display Arterial Blood Gas: No Data to Display Venous Blood Gas: No Data to Display Pancreas Panel: No Data to Display Thyroid Panel: No Data to Display Infectious Disease: No Data to Display Blood Cultures: No Data to Display Toxicology Panel: No Data to Display Imaging and Studies Imaging and Studies Study information below may be from another EMR and interpreted by another provider. Please see original notes in EMR for more complete details. EKG Summary: 01/30: sinus rhythm. Anesthesia Assessment and Plan Anesthesia History Personal History: No History of Anesthesia Complications Family History: No Family History of Anesthesia Complications Exercise Tolerance Exercise Tolerance: Metabolic Equivalents>4 Pertinent Negatives Pertinent Negatives: No Symptoms of GERD, No Major Cardiovascular Symptoms or Complaints and No Major Pulmonary Symptoms or Complaints Cardiac & Pulmonary Exam Cardiac Exam: Normal S1/S2 Heart Sounds Pulmonary Exam: Clear Bilateral Breath Sounds Implantable Cardiac Device Does patient have a Pacemaker or an ICD?: No Airway Exam Known Difficult Airway: No Mallampati Class: 3 Mouth Opening: Normal (> 3cm) Thyromental Distance: Greater than 3 cm Neck Range of Motion: Full ROM Neck Circumference: Thick Teeth Condition: Normal Dentition ASA Classification ASA Score: ASA 2 Emergency Case?: No NPO Status NPO Status: NPO Clears >2 hours, Solids >8 hours Anesthesia Plan Resuscitation Status: Full Code Anesthesia Technique: MAC Anesthesia Airway Planned: Natural Airway Monitors Used: Standard Monitors Preoperative Comments:: chronic opioid/methadone, GERD (omeprazole), HTN (valsartan), smoker, occ EtOH. Previous LMA 5, good seal
[2022-09-21 11:56] VITALS: BMI 39.3
[2022-09-21] MEDS: Lactated Ringers 1,000 ML 80 ML IV (12:10)
[2022-09-21] MEDS: Acetaminophen 500 MG TAB 1000 MG PO (12:12)
[2022-09-21] MEDS: Celecoxib 200 MG CAP PO (12:13)
[2022-09-21] MEDS: Gabapentin 300 MG CAP 600 MG PO (12:13)
[2022-09-21] MEDS: ceFAZolin 2 GM/50 ML BAG IVPB (12:20)
[2022-09-21] MEDS: Bupivacaine 0.5% Pres-Free W/EPI 30 ML VIAL (12:39)
[2022-09-21 12:50] VITALS: BP 130/99; PULSE 94; RESP 20; TEMP 36.6; O2SAT 92
[2022-09-21 13:14] VITALS: BP 111/70; PULSE 88; RESP 18; TEMP 36.4; O2SAT 92
--- NOTE | 2022-09-21 13:27 | W.ANESPOSTOP ---
Postoperative Evaluation Date, Time and Location Date Performed: 09/21/22 Time Performed: 13:27 Patient Location: Day Surgery Unit Vital Signs Most Recent Imported Vital Signs: Most Recent Vital Signs Temp Pulse Resp BP Pulse Ox 36.6 C 94 H 20 130/99 H 92 09/21/22 12:50 09/21/22 12:50 09/21/22 12:50 09/21/22 12:50 09/21/22 12:50 Pain Score Most Recent Pain Score: Most Recent Pain Score Pain Level 0 09/21/22 12:50 Assessment Mental Status: Awake (Alert & Oriented to Patient Baseline) Airway and Respiratory Function: Patent airway with normal (patient baseline) respiratory exam Cardiovascular Function: Hemodynamically Stable Hydration Status: Adequately Hydrated Nausea & Vomiting: No Nausea or Vomiting Pain: Pt. Denies Any Pain Peripheral Nerve Block: Patient did not receive a nerve block
== END 2022-09-21 13:27 | disposition home or self-care (01) ==
PROVIDERS: PCP Nurse Practitioner Family; Visit Provider Surgery
PROC: (CPT 11406; principal; 2022-09-21 10:45)
DX: D17.22 Benign lipomatous neoplasm of skin and subcutaneous tissue of left arm (principal); F17.210 Nicotine dependence, cigarettes, uncomplicated
CPT/HCPCS: 11406; 12031; J0690; J2250; J2405

== ENCOUNTER 2023-02-03 09:39 | Day surgery (SDC) | payer OTHER, SELFPAY ==
[2023-02-03] VITALS (9 sets, daily range): BP systolic 97–146; BP diastolic 51–89; PULSE 86–100; RESP 10–20; TEMP 36.4–37; O2SAT 91–96; BMI 40.6
--- NOTE | 2023-02-03 09:46 | W.PM.DSUDISC ---
Date of service: 02/03/23 Time of Service: 14:00 Discharge Plan Disposition Patient Disposition: Home Condition: Stable Discharge Details Reason For Visit: (L) KNEE MEDIAL MENISCUS Attending Provider: Felipe Beavers Primary Care Provider: Joe Hernandez Home Meds and New Rx's Prescriptions: New naproxen 250 mg tablet 250 - 500 mg PO BID PRN (Reason: moderate pain and swelling) Qty: 40 0RF aspirin 81 mg capsule 81 mg PO DAILY 14 Days Qty: 14 0RF oxycodone 5 mg tablet 5 - 10 mg PO Q4H PRN MDD 12 tabs PRN (Reason: severe pain) Qty: 36 0RF Rx Instructions: Take 1-2 tabs every 4-6 hours as needed for severe pain No Action fluticasone propionate 50 mcg/actuation spray,suspension 2 spray JESSE DAILY PRN (Reason: allergy symptoms) Qty: 18.2 2RF Rx Instructions: administer 1 spray in to each nostril daily PRN sildenafil [Viagra] 100 mg tablet 100 mg PO As Directed Qty: 3 11RF Rx Instructions: PO As Directed; 1/2 to 1 tab 2 hours before intercourse atorvastatin 80 mg tablet 80 mg PO QPM Qty: 90 3RF omeprazole 20 mg capsule,delayed release(DR/EC) 20 mg PO DAILY Qty: 90 4RF albuterol sulfate [Proventil HFA] 90 mcg/actuation HFA aerosol inhaler 2 puff inhalation Q6H PRN (Reason: shortness of breath or wheezing) Qty: 8.5 0RF valsartan 160 mg tablet 160 mg PO DAILY Qty: 90 4RF methadone 10 mg/mL concentrate 55 mg PO DAILY Patient Comments: 07/26/17: 49mg LR 04/29/17: 55mg. -BR Rx Instructions: GIVEN BY [facility] ibuprofen [Advil] 200 mg Tablet 200 mg PO Q6H PRN Discharge Instructions Additional Instructions: Surgery: Left knee arthroscopy with revision partial medial meniscectomy and lateral release Activity: Weightbearing as tolerated. Advance range of motion as comfort allows. No knee brace or crutches needed as soon as comfortable. Recommend avoiding sports, pivoting, and squatting for approximately 6-8 weeks. A physical therapy prescription will be sent electronically to start in 2 to 3 weeks. Prescriptions: Aspirin 81 mg take 1 daily to prevent blood clot for 14 days Naproxen 250 mg take 1-2 every 12 hours with a meal as needed for moderate pain Oxycodone 5 mg take 1-2 every 4-6 hours as needed for severe pain You may use [id number] Tylenol (acetaminophen) as needed for mild pain. These pain medications may be taken all at once or in different combinations as needed. Also, recommend Colace (docusate) as a stool softener as surgery and pain medicine cause constipation. You may try [id number] diphenhydramine (Benadryl) 25-50 mg nightly as a sleep aid. Dressings: Leave dressing in place for 3 days. May then remove and leave open to air or cover incisions with Band-Aids. Leave the sticky Steri-Strips in place until they fall off or remove them after yo shower. May shower after 5 days. Follow up: 10-[address] Beavers You may take off the leg compression stockings this evening at home. You may also leave them on a few days longer if you have a history of leg swelling or edema. Let us know right away if you develop any redness, drainage, fevers, chest pain, or trouble breathing. Do not drink alcohol or drive at least 24 hours after anesthesia. Please call the office during business hours with any questions or concerns. 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
[2023-02-03] MEDS: Lactated Ringers 1,000 ML 30 ML IV (10:50)
--- NOTE | 2023-02-03 11:16 | ANES.PREOP_ITS ---
General Info Date of Service Date Performed: 02/03/23 Height: 6 ft Weight: 135.8 kg Body Mass Index (BMI): 40.6 Surgical Procedure: Operation Date: 02/03/23 12:10 Proposed Procedure Side Surgeon p Knee Arthroscopy, any idicated Meniscal,Chondral and Synovial Surgery, Revision Partial Medial Meniscectomy, Arthroscopic Lateral Release Vs Open Lengthening Left Felipe Beavers MD Meds Allergies and Home Medications Allergies Allergy/AdvReac Type Severity Reaction Status Date / Time amlodipine Allergy Intermediate Drowsiness, Verified 02/03/23 10:12 chest pain lisinopril AdvReac Intermediate Cough Verified 02/03/23 10:12 Home Medication Medication Instructions Recorded fluticasone propionate 50 2 spray intranasal DAILY PRN 01/23/21 mcg/actuation nasal allergy symptoms #18.2 mL spray,suspension omeprazole 20 mg capsule,delayed 20 mg PO DAILY #90 tab-caps 10/15/21 release albuterol sulfate 90 mcg/actuation 2 puff inhalation Q6H PRN 07/22/22 aerosol inhaler (Proventil HFA) shortness of breath or wheezing #8.5 grams atorvastatin 80 mg tablet 80 mg PO QPM #90 tabs 08/30/22 sildenafil 100 mg tablet (Viagra) 100 mg PO As Directed #3 tab-caps 08/30/22 valsartan 160 mg tablet 160 mg PO DAILY #90 tabs 01/21/23 methadone 10 mg/mL oral concentrate 55 mg PO DAILY 02/02/23 ibuprofen 200 mg tablet (Advil) 200 mg PO Q6H PRN 02/03/23 Current Visit Medications: Current Medications Generic Name Dose Route Start Last Admin Trade Name Freq PRN Reason Stop Dose Admin Ringer's Solution 1,000 mls @ 30 mls/hr 02/03/23 06:00 02/03/23 10:50 IV 03/04/23 23:59 30 mls/hr INFUSION JESENIA Administration Cefazolin Sodium 3,000 mg/ 100 mls @ 200 mls/hr 02/03/23 06:00 Sodium Chloride IVPB 02/03/23 16:00 PREOP JESENIA IV Miscellaneous Supplies 1 each 02/03/23 06:00 Iv Access IV 03/04/23 23:59 DIRECTED JESENIA Sodium Chloride 0 ml 02/03/23 06:00 Normal Saline Flush 10 Ml Syr IV 03/04/23 23:59 PRN PRN Sodium Chloride 0 ml 02/03/23 06:00 Normal Saline 10 Ml Vial IJ 03/04/23 23:59 DIRECTED PRN Sterile Water 0 ml 02/03/23 06:00 Water,Injection,Sterile 10 Ml Vial IJ 03/04/23 23:59 DIRECTED PRN PFSH Active Problems Active Problems: Problem Status Onset Code Essential hypertension 04/12/17 I10 Gastroesophageal reflux disease without esophagitis 03/30/16 K21.9 Smoker F17.200 Testosterone deficiency in male E29.1 Hyperlipidemia E78.5 Elevated liver function tests R79.89 Family history of coronary artery disease in mother Z82.49 Low back pain M54.5 Lipoma of forearm D17.20 Opiate dependence F11.20 Status post medial meniscectomy of left knee 12/16/21 Z98.890 Chondromalacia, 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 Surgical History Surgical History (Updated 02/03/23 @ 10:11 by Yasmin Wagner) Appendectomy Pts states year or surgery was 2007 or 2008 EXCISION MASS, LIF H/O hand surgery Hx of arthroscopy of left knee 12/17/21 Hx of tonsillectomy PROCEDURES OTHER REPAIR OF KNEE, 1998 Tobacco Smoking/Tobacco Use Status: Current every day Tobacco Type: smokeless tobacco Smokeless tobacco user: chewing tobacco Passive smoking exposure: No Second hand exposure: Yes Alcohol Alcohol Intake: current Alcohol intake frequency: a few times a week Alcohol type: hard liquor Substance Use Substance use: Never Substance use type: former substance user and other Details: Methadone rx Details: methadone client-Hx of IVDA clean since 2012 Vital Signs and Lab Results Vital Signs Most Recent Vital Signs in EMR: Most Recent Vital Signs Temp Pulse Resp BP Pulse Ox 36.5 C 94 H 17 146/78 H 95 02/03/23 10:19 02/03/23 10:19 02/03/23 10:19 02/03/23 10:19 02/03/23 10:19 Lab Results Blood Type / Crossmatch: No Data to Display Complete Blood Count: No Data to Display Complete Metabolic Panel: No Data to Display Liver Function Panel: No Data to Display Coagulation Panel: No Data to Display Cardiac Panel: No Data to Display Arterial Blood Gas: No Data to Display Venous Blood Gas: 2 No Data to Display Pancreas Panel: No Data to Display Thyroid Panel: No Data to Display Infectious Disease: No Data to Display Blood Cultures: No Data to Display Toxicology Panel: No Data to Display Imaging and Studies Imaging and Studies Study information below may be from another EMR and interpreted by another provider. Please see original notes in EMR for more complete details. EKG Summary: 01/30: sinus rhythm. Anesthesia Assessment and Plan Anesthesia History Personal History: No History of Anesthesia Complications Family History: No Family History of Anesthesia Complications Exercise Tolerance Exercise Tolerance: Metabolic Equivalents>4 Cardiac & Pulmonary Exam Cardiac Exam: Normal S1/S2 Heart Sounds Pulmonary Exam: Clear Bilateral Breath Sounds Implantable Cardiac Device Does patient have a Pacemaker or an ICD?: No Airway Exam Known Difficult Airway: No Mallampati Class: 3 Mouth Opening: Normal (> 3cm) Thyromental Distance: Greater than 3 cm Neck Range of Motion: Full ROM Neck Circumference: Thick Teeth Condition: Generalized Poor Dentition ASA Classification ASA Score: ASA 3 Emergency Case?: No NPO Status NPO Status: NPO Clears >2 hours, Solids >8 hours Anesthesia Plan Resuscitation Status: Full Code Anesthesia Technique: General Anesthesia Airway Planned: Endotracheal Tube Monitors Used: Standard Monitors Preoperative Comments:: 42 yo male for knee scope. Sig PMHx: chronic opioid/methadone, GERD (omeprazole, states has been having it very frequently latey), HTN (valsartan), Tobacco (chewing tobacco, denies use since last night), occ EtOH. Previous Anes: - igel 5, good seal
[2023-02-03] MEDS: ceFAZolin 3,000 MG in Normal Saline 100 ML 200 MG IVPB (12:21)
[2023-02-03] MEDS: EPINEPHrine 30 MG/30 ML VIAL (13:23)
[2023-02-03] MEDS: MORPHine 4 MG/ML SYR (13:23)
[2023-02-03] MEDS: HYDROmorphone 2 MG/ML SYR IVP (14:01)
[2023-02-03] MEDS: Normal Saline 10 ML VIAL IJ (14:02)
[2023-02-03] MEDS: Albuterol/Ipratropium 3 ML UPD VIAL UPD (14:05)
--- NOTE | 2023-02-03 14:12 | ROE_ITS ---
Date of service: 02/03/23 Time of Service: 13:00 Operative Note Operative Note DATE OF PROCEDURE: 02/03/23 PRE-OP DIAGNOSIS: Left knee 1. Medial meniscus tear 2. Patellar maltracking 3. Chondromalacia PROCEDURE: Left knee 1. Revision partial medial meniscectomy, CPT #65444 2. Arthroscopic lateral release, CPT #55238 SURGEON: Felipe Beavers ANESTHESIA TYPE: Local By Surgeon and General LMA/ETT Refer to Anesthesia Record ESTIMATED BLOOD LOSS: 5 PATHOLOGY: none sent TOURNIQUET TIME: 0 COMPLICATIONS: None Patient was transported to: PACU Patient's condition: stable Indications: Please see complete medical record for details. Findings: Exam under anesthesia: Full range of motion, no instability. Arthroscopic findings: Small recurrent undersurface medial meniscus tear about the posterior horn body junction, somewhat oblique to horizontal in the posterior horn. Body to anterior horn intact stable. Root intact. Lateral meniscus with minimal body white zone fraying. Intact ACL. Moderate lateral retinacular tightness patellar maltracking. Similar moderately diffuse patellar undersurface cartilage thinning and fissures more centrally. Moderate medial femoral condyle chondromalacia. Procedure Description: In the operating room, genral anesthesia was induced. The patient was positioned supine on the operating room table. All bony prominences were well- padded. Preoperative antibiotics were administered. The knee was prepped and draped in the usual sterile fashion. The correct patient, procedure, and side of the procedure were all verified prior to incision. Exam under anesthesia was performed. 10 cc of bupivacaine and lidocaine mixture containing epinephrine was infiltrated about the prior anteromedial and anterolateral knee arthroscopy portals. The portals were established and a complete diagnostic arthroscopy was performed with relevant findings detailed above. The prior medial meniscus surgery zone was carefully probed and inspected. There was a small undersurface 3?tear as described above. Using a combination of hand instruments including meniscal biters and a power shaver and working through the anteromedial and anterolateral compartments the torn tissue was resected, adjacent tissue was debrided and contoured to a stable margin. The superior leaflet was slightly resected as well to better match the amount that had been resected inferiorly. Care was taken to debride all abnormal and torn m eniscus while preserving as much tissue as reasonable. The meniscal remnant was probed and found to have a stable margin, stable root, and no other tears The undersurface patella cartilage did not require any additional surgery. The lateral meniscus small fraying of the white zone was quickly resected with the shaver. The patella maltracking only required mild correction. Given the size of the patient and narcotic pain problems, less invasive arthroscopic release was preferred over open lengthening excepting the low risk of theoretical medial instability. Majority of the patellar lesion was undersurface, cartilage medially was relatively preserved, and the tight test part of the retinaculum could be well visualized. Working through the anterolateral portal a curved radiofrequency wand was used to release the lateral retinaculum working carefully layer by layer to avoid penetrating the subcutaneous tissue and skin. After moderate release, the patella could be better mobilized and was better positioned centrally. A spinal gauge needle was brought in a single puncture laterally centered over the release zone and used to piecrust the remaining lateral retinacular tissue with direct medial pressure on the patella used to complete release. A combination of these techniques was used to avoid too aggressive over release but allow appropriate correction of the maltracking. Pr oper hemostasis was achieved. The 18-gauge needle was redirected into the suprapatellar pouch. The knee was copiously irrigated with arthroscopic fluid until there was a clear effluent before being drained of all fluid. The anteromedial and anterolateral portals were closed in 3-0 Monocryl in a buried interrupted fashion. 20 cc mixture of Vivacaine and lidocaine with epinephrine containing 4 mg of morphine was infiltrated into the knee through the previously placed needle. Mastisol, Steri-Strips, and 4 x 4 gauze were applied over the incisions followed by sterile soft roll. The knee was then wrapped gently with an SANAZ comressive bandage. The patient awoke from anesthesia without complication and was transferred to the recovery room in a stable condition.
--- NOTE | 2023-02-03 14:53 | W.ANESPOSTOP ---
Postoperative Evaluation Date, Time and Location Date Performed: 02/03/23 Time Performed: 14:53 Patient Location: Day Surgery Unit Vital Signs Most Recent Imported Vital Signs: Most Recent Vital Signs Temp Pulse Resp BP Pulse Ox 36.6 C 97 H 20 126/74 96 02/03/23 14:41 02/03/23 14:41 02/03/23 14:41 02/03/23 14:41 02/03/23 14:41 Pain Score Most Recent Pain Score: Most Recent Pain Score Pain Level 4 02/03/23 14:41 Assessment Mental Status: Awake (Alert & Oriented to Patient Baseline) Airway and Respiratory Function: Patent airway with normal (patient baseline) respiratory exam Cardiovascular Function: Hemodynamically Stable Hydration Status: Adequately Hydrated Nausea & Vomiting: No Nausea or Vomiting Pain: Pain is tolerable per patient Peripheral Nerve Block: Patient did not receive a nerve block Postoperative Comments:: Pt. denies any recreational substance use, did recently use viagra. Denies any chest pain/SOB now or when at home. No obvious reason identified for intraop hypotension. Advised pt. to make future anesthesia providers aware that this did occur.
== END 2023-02-03 15:33 | disposition home or self-care (01) ==
PROVIDERS: PCP Nurse Practitioner Family; Visit Provider Student in an Organized Health Care Education/Training Program
PROC: (CPT 29870; principal; 2023-02-03 12:00)
DX: M23.232 Derangement of other medial meniscus due to old tear or injury, left knee (principal); M94.262 Chondromalacia, left knee
CPT/HCPCS: 29881; 29873; J0690; J1100; J1170; J2250; J2270; J2405; J2704; J7620

== ENCOUNTER 2023-02-25 09:30 | Outpatient (REF) | payer MEDICAID, SELFPAY ==
[2023-02-26 12:46] LABS: Chlamydia Result Negative (Negative); GC Result Negative (Negative)
== END 2023-02-25 09:31 | disposition home or self-care (01) ==
LOC: LBN 09:30
PROVIDERS: PCP Nurse Practitioner Family; Visit Provider Nurse Practitioner Family
DX: R30.0 Dysuria (principal)
CPT/HCPCS: 87491; 87591

== ENCOUNTER 2023-03-11 01:16 | Outpatient (CLI) | payer MEDICAID, SELFPAY ==
[2023-03-11 12:57] LABS: ALT 46 U/L (16-63); AST 21 U/L (15-37); Albumin 3.7 g/dL (3.4-5.0); Alkaline Phosphatase 98 U/L (46-116); Anion Gap 10.4 mmol/L (3-11); BUN 15 mg/dL (7-18); Bilirubin, Total 0.2 mg/dL (0.2-1.0); CO2 26.6 mmol/L (21.0-32.0); CREATININE 1.1 mg/dL (0.70-1.30); Calcium 9.6 mg/dL (8.5-10.1); Calculated LDL 185 mg/dL (<100); Chloride 101 mmol/L (98-107); Cholesterol 281 mg/dL (<200); Estimated GFR 85.42 (mL/min/1.73m2); Glucose 98 mg/dL (74-106); HDL Cholesterol 51 mg/dL (40-60); Potassium 4.6 mmol/L (3.5-5.1); Sodium 138 mmol/L (136-145); Total Protein 7.6 g/dL (6.4-8.2); Triglyceride 227 mg/dL (<150)
[2023-03-15 09:49] LABS: Testosterone, Total 78 ng/dL (240-950)
== END 2023-03-11 01:17 | disposition home or self-care (01) ==
LOC: LOS 01:16
PROVIDERS: PCP Nurse Practitioner Family; Visit Provider Nurse Practitioner Family
DX: E78.5 Hyperlipidemia, unspecified (principal); E29.1 Testicular hypofunction
CPT/HCPCS: 36415; 80053; 80061; 84403

== ENCOUNTER 2023-03-15 19:41 | Emergency (ER) | payer MEDICAID, SELFPAY ==
[2023-03-15] VITALS (74 sets, daily range): BP systolic 91–140; BP diastolic 56–116; PULSE 91–152; RESP 9–27; TEMP 37.1; O2SAT 92
--- NOTE | 2023-03-15 19:45 | RT.EKG_ITS ---
APPROVED REPORT Exam: Resting ECG Reason for Exam: od Patient Location: E HR:100 bpm ECG Measurements Heart Rate 100 AXIS AK 164 P 74 QRSd 100 QRS 38 QT 333 T 45 QTc 430 Conclusion Sinus tachycardia...rate> 99 ST elev, probable normal early repol pattern...ST elevation, age<55
--- NOTE | 2023-03-15 20:00 | DI.CT_ITS ---
Exam(s) CT CHEST PE CTA EXAM: CT CHEST PE CTA CLINICAL HISTORY: hypoxia, chest pain. TECHNIQUE: Imaging Protocol: Axial CT angiography was performed with multi-slice acquisition and mu lti-planar reconstructions as well as axial, coronal and sagittal MIP reconstructions. CONTRAST MATERIAL: Intravenous: Omnipaque 350 Contrast volume:100 ml COMPARISON: CT CT CHEST PE CTA from 01/29/2021 FINDINGS: Eggs evaluation lungs limited due to respiratory motion and expiratory changes. Pulmonary Arteries: No evidence of filling defect to suggest pulmonary emboli. Distal branches not well evaluated due to motion. Tracheobronchial tree: Patent where visualized. Mediastinum and [place]: No dominant adenopathy or fluid collection. Pulmonary parenchyma: Basilar atelectasis. Pleura: No effusion or pneumothorax. Heart: The heart is not dilated. No coronary artery calcifications are seen. Aorta: Thoracic aorta non-dilated. No aneurysm. No dissection. Upper abdomen: Severe hepatic steatosis. Bones: Left anterior nondisplaced rib fractures. Spine unremarkable for age. Tubes, Catheters, and Lines: None IMPRESSION: No evidence of pulmonary embolism. Basilar atelectasis. Nondisplaced left anterior rib fractures. RADIATION DOSE DELIVERED: 934.4mGy.cm Total DLP DATA REPOSITORY: All CT scans at this facility are submitted to the National Radiology Data Registry (NRDR) Dose Index Registry (DIR) with the [employer] ([employer]). RADIATION OPTIMIZATION: All CT scans at this facility use at least one of these dose optimization te chniques: automated exposure control; mA and/or kV adjustment per patient size (includes targeted exa ms where dose is matched to clinical indication); or iterative reconstruction.
--- NOTE | 2023-03-15 20:02 | W.ED.GENAD ---
Discharge Plan Disposition Patient Disposition: Home Condition: Stable Discharge Details Clinical Impression: Chest pain, Opiate overdose Primary Care Provider: Joe Hernandez ED Provider: Gareth Kelley Home Meds and New Rx's Prescriptions: Continued atorvastatin 80 mg tablet 80 mg PO QPM Qty: 90 3RF sildenafil [Viagra] 100 mg tablet 100 mg PO As Directed Qty: 6 11RF Rx Instructions: PO As Directed; 1/2 to 1 tab 2 hours before intercourse fluticasone propionate 50 mcg/actuation spray,suspension 2 spray JESSE DAILY PRN (Reason: allergy symptoms) Qty: 18.2 2RF Rx Instructions: administer 1 spray in to each nostril daily PRN metoprolol succinate 50 mg tablet extended release 24 hr 50 mg PO DAILY Qty: 90 1RF omeprazole 40 mg capsule,delayed release(DR/EC) 40 mg PO DAILY Qty: 90 1RF albuterol sulfate [Proventil HFA] 90 mcg/actuation HFA aerosol inhaler 2 puff inhalation Q6H PRN (Reason: shortness of breath or wheezing) Qty: 8.5 0RF valsartan 160 mg tablet 160 mg PO DAILY Qty: 90 4RF methadone 10 mg/mL concentrate 55 mg PO DAILY Patient Comments: 07/26/17: 49mg LR 04/29/17: 55mg. -BR Rx Instructions: G[facility]EN BY [facility] ibuprofen [Advil] 200 mg Tablet 200 mg PO Q6H PRN naproxen 250 mg tablet 250 - 500 mg PO BID PRN (Reason: moderate pain and swelling) Qty: 40 0RF Discharge Instructions Instructions: Opioid Safety (ED), Opioid Use Disorder (ED) Additional Instructions: follow up with your primary care provider within 1 week If you feel more ill, have severe worsening pain or difficulty breathing return to the emergency department Medical Decision Making 42 yo male who has a history of opiate use comes in after he overdose on fentanyl. He states a few hours ago he smoked fentanyl and then he was unresponsive. He reportedly had bystander cpr and ems gave narcan and his mental status rapidly improved. Unclear if he was ever actually in cardiac arrest. He states earlier today he used cocaine and also had some alcohol today. He arrives stable though is hypoxic to 85% on room air. He is caox4 with clear speech and clinically sober. He has left sided chest pain which is where he reportedly had cpr and is tender in this area. No jvd, no murmurs, clear lung sounds, no calf tenderness. Suspect the hypoxia is due to the opiate overdose and some degree of lung injury from hypoventilation and narcan, will proceed with cbc, cmp, troponin and cta of the chest to evaluate for pe, rib fracture, edema or infiltrate. pt stable, no longer requiring oxygen 97% on room air and has no significant findings on CT, distended gallbladder but has no ruq tenderness. He has not required repeat narcan dosing. Stable for d/c, advised to f/u with his pcp, return precautions given Differential Diagnosis Differential Diagnosis: opiate overdose, narcan induced hypoxia, pe, rib fracture Imaging Data Radiologic Study: Attestation: I personally reviewed and interpreted this imaging study as follows: Imaging: CT Scan Radiologist's impression: IMPRESSION: No large pulmonary emboli detected Limited evaluation for small segmental/subsegmental emboli predominantly in the lower lobes Distended gallbladder without definite calcified stones. Further evaluation as clinically indicated Thank you for allowing us to participate in the care of your patient. Lab Data Lab results reviewed: Yes I reviewed the patient's lab results. ECG Data Attestation: I personally reviewed and interpreted this ECG (s) as follows: Prior ECG tracings: available for review Interpretation: sinus rate of 100, pr 164, no stemi HPI General Mode of arrival: EMS. Date/Time Provider Initiated Documentation: 03/15/23 19:53. Limitations to Documentation: no limitations. Information obtained by: patient. History of Present Illness 42 year old M presents to the emergency department with the chief complaint of fentanyl overdose, described as severe, Patient started experiencing this hour(s) (1) and it has been now resolved. No relieving factors improve symptom(s), No exacerbating factors reported . Patient notes chest pain. Patient did receive the following treatments prior to arrival, none Related Data Home Medications Medication Instructions Recorded Confirmed albuterol sulfate 90 mcg/actuation 2 puff inhalation Q6H PRN 07/22/22 02/25/23 aerosol inhaler (Proventil HFA) shortness of breath or wheezing #8.5 grams atorvastatin 80 mg tablet 80 mg PO QPM #90 tabs 08/30/22 02/25/23 valsartan 160 mg tablet 160 mg PO DAILY #90 tabs 01/21/23 02/25/23 methadone 10 mg/mL oral concentrate 55 mg PO DAILY 02/02/23 02/25/23 ibuprofen 200 mg tablet (Advil) 200 mg PO Q6H PRN 02/03/23 02/25/23 naproxen 250 mg tablet 250 - 500 mg PO BID PRN moderate 02/03/23 02/25/23 pain and swelling #40 tabs fluticasone propionate 50 2 spray intranasal DAILY PRN 02/25/23 02/25/23 mcg/actuation nasal allergy symptoms #18.2 mL spray,suspension metoprolol succinate 50 mg 50 mg PO DAILY #90 tabs 02/25/23 02/25/23 tablet,extended release 24 hr omeprazole 40 mg capsule,delayed 40 mg PO DAILY #90 tab-caps 02/25/23 02/25/23 release sildenafil 100 mg tablet (Viagra) 100 mg PO As Directed #6 tab-caps 02/25/23 02/25/23 Previous Rx's Medication Instructions Recorded albuterol sulfate 90 mcg/actuation 2 puff inhalation Q6H PRN 07/22/22 aerosol inhaler (Proventil HFA) shortness of breath or wheezing #8.5 grams atorvastatin 80 mg tablet 80 mg PO QPM #90 tabs 08/30/22 valsartan 160 mg tablet 160 mg PO DAILY #90 tabs 01/21/23 naproxen 250 mg tablet 250 - 500 mg PO BID PRN moderate 02/03/23 pain and swelling #40 tabs fluticasone propionate 50 2 spray intranasal DAILY PRN 02/25/23 mcg/actuation nasal allergy symptoms #18.2 mL spray,suspension metoprolol succinate 50 mg 50 mg PO DAILY #90 tabs 02/25/23 tablet,extended release 24 hr omeprazole 40 mg capsule,delayed 40 mg PO DAILY #90 tab-caps 02/25/23 release sildenafil 100 mg tablet (Viagra) 100 mg PO As Directed #6 tab-caps 02/25/23 Allergies Allergy/AdvReac Type Severity Reaction Status Date / Time amlodipine Allergy Intermediate Drowsiness, Verified 02/25/23 07:59 chest pain lisinopril AdvReac Intermediate Cough Verified 02/25/23 07:59 General Stated Complaint: OD/Poison DUNG: 2 Review of Systems All systems reviewed & are unremarkable except as noted in HPI and below Constitutional Constitutional: Denies chills, Denies fever(s) and Denies weakness Cardiovascular Cardiovascular: Reports chest pain Respiratory Respiratory: Denies cough Gastrointestinal Gastrointestinal: Denies abdominal pain, Denies nausea and Denies vomiting Integumentary/Breasts Skin/Breast: Denies rash Neurologic Neurologic: Denies weakness PFSH All Active Problems (Updated 03/15/23 @ 22:45 by Gareth Kelley MD) Essential hypertension (Acute 04/12/17) Gastroesophageal reflux disease without esophagitis (Acute 03/30/16) Smoker (Chronic) Testosterone deficiency in male (Acute) Hyperlipidemia (Acute) Elevated liver function tests (Acute) Family history of coronary artery disease in mother (Acute) At age 73 Low back pain (Acute) Opiate dependence (Acute) hx of IVDA-Dc/d in 2017, on methadone with [facility] Status post medial meniscectomy of left knee (Acute 12/16/21) s/p left knee arthroscopy with revision partial medial meniscectomy and lateral release 02/03/23 Chondromalacia, left knee (Acute) 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) Pain of both breasts (Acute) Dysuria (Acute) Chest pain (Acute) Opiate overdose (Acute) Medical History (Updated 03/15/23 @ 22:45 by Gareth Kelley MD) Allergic rhinitis Boil Change in stool caliber Depressive disorder Diarrhea Episodic cluster headache, not intractable (07/26/17) Foot laceration Hyperhidrosis Lipoma of forearm Lymphadenopathy of head and neck region Multifocal pneumonia Murmur, cardiac Congenital Right knee pain Soft tissue mass 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 Paternal Grandmother Breast cancer Sister No problems noted. Social History (Updated 02/26/23 @ 10:54 by Staci Pagan) Smoking/Tobacco Use Status: Current every day Tobacco Type: smokeless tobacco Tobacco: How many years used: 20 Smokeless tobacco user: chewing tobacco Quit status: considering quitting Second Hand Exposure: Yes Smoking risk assessment performed?: Yes Alcohol Intake: current Alcohol Intake frequency: a few times a month Alcohol type: hard liquor Drug use: Current Sobriety Substance use type: former substance user and other Details: Methadone rx Details: methadone client-Hx of IVDA clean since 2012 Caregiver/Support person: No Household members: family and other Details: Mother Housing: house Communication Needs: None Do you need help understanding health information?: Never current occupation: [employer] Pets and animals: Yes Pets and animals: dog(s) Do you think of yourself as: straight/heterosexual Current gender identity: male What is your relationship status?: never How often do you talk on the phone with friends or family?: once per week How often do you get together with friends or relatives?: once per week How often do you attend gnosticist or scientologist services?: decline to answer Do you belong to any clubs or organized social groups?: no Panel score (0-1 are the most socially isolated patients): 0 What type of physical activity do you participate in: none Frequency: does not exercise Korina/Gnosticism: None Special korina needs: No Seatbelt use: always Helmet use: Yes Helmet use: always Drive intox or ride w/intox motor coach driver: No Do you feel safe at home: Yes Do you feel safe in your relationship?: Yes Exam Const General: no acute distress Orientation: alert HENMT Head: normal to inspection Ears: external ears normal General nose exam: external nose normal Mouth: moist mucous membranes Eyes General: appearance normal, both eyes and all related structures Neck Neck: normal visual inspection Resp Effort & Inspection: normal respiratory effort and able to speak in complete sentences Auscultation: clear to auscultation bilaterally Cardio Jugular venous pressure: no JVD Rate: regular rate Heart Sounds: no murmurs GI Palpation: soft and nontender Skin General skin exam: no rashes or lesions noted Neuro General: patient alert and patient oriented x3 Extrem General: normal to inspection Psych Mental Status: mental status grossly normal Course Vital Signs Vital signs: Vital Signs Temperature 37.1 C 03/15/23 19:41 Pulse 104 H 03/15/23 19:41 Respiratory Rate 16 03/15/23 19:41 Pulse Oximetry 92 03/15/23 19:41 Temperature 37.1 C 03/15/23 19:41 Temperature Source Oral 03/15/23 19:41 Pulse 104 H 03/15/23 19:41 Respiratory Rate 16 03/15/23 19:41 Blood Pressure Position Supine 03/15/23 19:41 Pulse Oximetry 92 03/15/23 19:41 Oxygen Delivery Method Room Air 03/15/23 19:41 Oxygen Flow Rate 0 03/15/23 19:41 Pain Level 8 03/15/23 19:41
[2023-03-15 20:36] LABS: Abs Immature Grans 0.36 10^3/uL (0.0-0.06); Absolute Basophil Count 0.09 10^3/uL (0.0-0.2); Absolute Eosinophil Count 0.03 10^3/uL (0.0-0.7); Absolute Lymphocyte Count 1.69 10^3/uL (1.2-3.4); Absolute Neutrophil Count 12.13 10^3/uL (1.2-6.7); Basophils % 0.6; Eosinophils % 0.2; HCT 42.1 % (40.0-50.0); HGB 14.4 g/dL (13.5-17.5); Immature Grans % 2.4; Lymphocytes % 11.2; MCH 29.4 pg (27.0-33.0); MCHC 34.2 % (32.0-36.0); MCV 86 fL (80-95); MPV 9.4 fL (8.0-11.0); Monocytes % 5.3; Neutrophils % 80.3; Platelet Count 302 10^3/uL (130-400); RBC 4.89 10^6/uL (4.36-5.78); RDW 12.8 % (11.8-14.1); RDW-SD 39.6 fL
[2023-03-15 20:57] LABS: Salicylate < 2.8 mg/dL (<2.8)
[2023-03-15 21:08] LABS: ALT 116 U/L (16-63); AST 80 U/L (15-37); Acetaminophen < 2 ug/mL (10-30); Alkaline Phosphatase 102 U/L (46-116); Anion Gap 12.4 mmol/L (3-11); BUN 19 mg/dL (7-18); Bilirubin, Total 0.2 mg/dL (0.2-1.0); CO2 23.6 mmol/L (21.0-32.0); CREATININE 1.8 mg/dL (0.70-1.30); Calcium 9.6 mg/dL (8.5-10.1); Chloride 100 mmol/L (98-107); ETHANOL BLOOD 79.8 mg/dL (<10); Estimated GFR 47.31 (mL/min/1.73m2); Glucose 146 mg/dL (74-106); Magnesium 2.3 mg/dL (1.8-2.4); Potassium 4.8 mmol/L (3.5-5.1); Sodium 136 mmol/L (136-145); Total Protein 8.1 g/dL (6.4-8.2); Troponin I < 50 ng/L (<or=60)
[2023-03-15] MEDS: Normal Saline - Diluent 50 ML VIAL IJ (21:39)
[2023-03-15] MEDS: Omnipaque 350 MG/ML 100 ML BTL IJ (21:40)
[2023-03-15] MEDS: Normal Saline Flush 10 ML SYR IVP (21:44)
--- NOTE | 2023-03-15 22:18 | DI.VRAD_ITS ---
PROCEDURE INFORMATION: Exam: CTA Chest With Contrast Exam date and time: 03/15/2023 9:48 PM Age: 42 years old Clinical indication: Chest pressure; Patient HX: Hypoxia, chest pain. Rib pain TECHNIQUE: Imaging protocol: Computed tomographic angiography of the chest with contrast. Exam focused on the arteries. 3D rendering (Not supervised by radiologist): MIP and/or 3D reconstructed images were created by the technologist. Radiation optimization: All CT scans at this facility use at least one of these dose optimization techniques: automated exposure control; mA and/or kV adjustment per patient size (includes targeted exams where dose is matched to clinical indication); or iterative reconstruction. Contrast material: OMNIPAQUE 350; Contrast volume: 100 ml; Contrast route: INTRAVENOUS (IV); COMPARISON: CT CHEST PE CTA 01/29/2021 5:31 PM FINDINGS: Limited due to respiratory motion artifact Pulmonary arteries: No large pulmonary emboli. Aorta: No aortic aneurysm. No aortic dissection. Lungs: Mild subsegmental atelectasis at the lung bases No consolidation. No masses. Pleural spaces: Unremarkable. No pneumothorax. No pleural effusion. Heart: No cardiomegaly. No pericardial effusion. Lymph nodes: Unremarkable. No enlarged lymph nodes. Bones/joints: Unremarkable. No acute fracture. Soft tissues: Unremarkable. Mildly distended gallbladder. No calcified stones. Severe fatty infiltration and hepatomegaly. Mild right renal scarring IMPRESSION: No large pulmonary emboli detected Limited evaluation for small segmental/subsegmental emboli predominantly in the lower lobes Distended gallbladder without definite calcified stones. Further evaluation as clinically indicated Dictated and Authenticated by: Enzo Aguilera MD. Ordering:NITIN Servin MD
[2023-03-15 22:52] LABS: Bilirubin Negative (Negative); Blood Negative (Negative); Clarity Sl Cloudy (Clear); Glucose Negative (Negative); Ketones Negative (Negative); Leukocyte Esterase Negative (Negative); Nitrite Negative (Negative); Specific Gravity 1.015 (1.005-1.025); Urobilinogen 0.2 mg/dL (Up to 0.2); pH 6.5 (5-8)
[2023-03-15 23:01] LABS: Bacteria Rare HPF (Negative); C & S Indicated? No; Casts 5-10 Hyaline LPF (Negative); Crystals Negative HPF (Negative); Epithelial Cells Few HPF (Negative); Mucus Trace (Negative); RBC 0-2 HPF (0-2); WBC 0-2 HPF (0-5)
[2023-03-15 23:07] LABS: Troponin I < 50 ng/L (<or=60)
[2023-03-15 23:13] LABS: *AMPHETAMINES SCREEN URINE Negative (Negative); *BARBITURATES SCREEN URINE Negative (Negative); *BENZODIAZEPINES SCREEN URINE Negative (Negative); Cannabinoids THC Negative (Negative); Cocaine Screen,Urine Positive (Negative); METHADONE URINE SCREEN Positive (Negative); OPIATES URINE SCREEN Positive (Negative)
[2023-03-15 23:15] LABS: Tricyclic Antidepressants Negative (Negative)
--- NOTE | 2023-03-17 16:13 | NUR.NOTE ---
Nursing Note:Accessd pt chart to determine number of EKG orders. 1 will be deleted.
--- NOTE | 2023-03-19 17:44 | NUR.NOTE ---
Nursing Note: Accessed pt chart to determine number of EKG orders. Duplicate order deleted.
== END 2023-03-15 22:55 | disposition home or self-care (01) ==
PROVIDERS: Emergency Provider Emergency Medicine; PCP Nurse Practitioner Family
DX: T40.2X1A Poisoning by other opioids, accidental (unintentional), initial encounter (principal); R07.9 Chest pain, unspecified
CPT/HCPCS: 71275; 80053; 80307; 93005; 99285; 80320; 80329; 81003; 81015; 83735; 84484; 85025; 93010; 99284; J3490

== ENCOUNTER 2023-03-28 02:36 | Outpatient (CLI) | payer MEDICAID, SELFPAY ==
--- NOTE | 2023-03-28 08:15 | DI.US_ITS ---
Exam(s) US BREAST LT COMPLETE US BREAST RT COMPLETE MG MAMMO DIAGNOSTIC BI EXAM: MG MAMMO DIAGNOSTIC BI CLINICAL HISTORY: breast pain under nipples,N64.4. COMPARISON: No exams were available for comparison TECHNIQUE: Craniocaudal and mediolateral oblique Full Field Digital Mammography views of both breast s with Computer Aided Diagnosis followed by Tomosynthesis and bilateral breast ultrasound. FINDINGS: Mammography/Tomosynthesis: Masses/Architectural Distortion: None seen. Breast tissue development noted in the subareolar regio ns. Microcalcifications: No suspicious pleomorphic-type are seen. Skin Thickening/Nipple Retraction: None. Bilateral breast US: Echotexture: Breast tissue development in the subareolar region. Shadowing: No suspicious foci. Cyst: None. Solid lesions: None seen. Ductal dilation: None. IMPRESSION: 1. No evidence of malignancy is noted. Findings are consistent with symmetric bilateral gynecomastia. BI-RADS Category 2 - Benign Findings Breast Density - Category B - Scattered areas of fibroglandular density A negative radiographic report should not delay biopsy if a dominant or clinically suspicious mass is present. Up to ten percent of cancers are not identified on mammography. A negative report may reinforce clinical impression. Adenosis and dense breasts may obscure an underlying neoplasm. False positive reports average 6 to 10%. Patient will receive a letter notifying them of these results.
== END 2023-03-28 02:56 ==
LOC: DI 02:36
PROVIDERS: PCP Nurse Practitioner Family; Visit Provider Nurse Practitioner Family
DX: N64.4 Mastodynia (principal); Z12.31 Encounter for screening mammogram for malignant neoplasm of breast
CPT/HCPCS: 76642; 77062; 77066; G0279

== ENCOUNTER 2023-05-10 13:31 | Outpatient (CLI) | payer OTHER, SELFPAY ==
--- NOTE | 2023-05-10 13:15 | DI.RAD_ITS ---
Exam(s) XR KNEE LT 3V AP,LAT,ANAHI EXAM: XR KNEE LT 3V AP,LAT,ANAHI CLINICAL HISTORY: knee pain. TECHNIQUE: 2D digital imaging was performed of the left knee. Three images were obtained. Merchant ,AP and lateral views were obtained. COMPARISON: CR XR KNEE LT 4V+ from 10/12/2021 FINDINGS: BONES: No acute fracture is present. No bony destructive lesion is seen. JOINTS: There is mild joint space narrowing in the medial femoral tibial joint. There is a small sandra nt effusion. No loose body. SOFT TISSUE: Normal. IMPRESSION: Mild joint space narrowing of the medial femoral tibial joint. DATA REPOSITORY: RADIATION DOSE DELIVERED:
== END 2023-05-10 13:32 | disposition home or self-care (01) ==
LOC: DIORS 13:32
PROVIDERS: PCP Nurse Practitioner Family; Referring Provider Nurse Practitioner Family; Visit Provider Physician Assistant
DX: M17.12 Unilateral primary osteoarthritis, left knee
CPT/HCPCS: 73562

== ENCOUNTER 2023-05-24 12:27 | Emergency (ER) | payer MEDICAID, SELFPAY ==
[2023-05-24] VITALS (39 sets, daily range): BP systolic 146–201; BP diastolic 61–170; PULSE 81–96; RESP 10–25; TEMP 36.2; O2SAT 89–98
--- NOTE | 2023-05-24 12:15 | RT.EKG_ITS ---
APPROVED REPORT Exam: Resting ECG Reason for Exam: chest pain Patient Location: E HR:91 bpm ECG Measurements Heart Rate 91 AXIS DC 149 P 32 QRSd 102 QRS 23 QT 358 T 37 QTc 441 Conclusion Sinus rhythm...normal P axis, V-rate 60- 99 normal axis normal intervals, Inferior q waves in inferior leads have resolved from previous. NO RIKKI CO
--- NOTE | 2023-05-24 13:05 | ED.GENADUL_ITS ---
Discharge Plan Disposition Patient Disposition: Home Discharge Details Clinical Impression: Chest pain, Smoker, Low back pain, Opiate dependence, Essential hypertension Primary Care Provider: Joe Hernandez ED Provider: Christy Mccloud Home Meds and New Rx's Prescriptions: No Action atorvastatin 80 mg tablet 80 mg PO QPM Qty: 90 3RF sildenafil [Viagra] 100 mg tablet 100 mg PO As Directed Qty: 6 11RF Rx Instructions: PO As Directed; 1/2 to 1 tab 2 hours before intercourse fluticasone propionate 50 mcg/actuation spray,suspension 2 spray JESSE DAILY PRN (Reason: allergy symptoms) Qty: 18.2 2RF Rx Instructions: administer 1 spray in to each nostril daily PRN metoprolol succinate 50 mg tablet extended release 24 hr 50 mg PO DAILY Qty: 90 1RF omeprazole 40 mg capsule,delayed release(DR/EC) 40 mg PO DAILY Qty: 90 1RF testosterone 1 % (50 mg/5 gram) gel in packet 1 packet transdermal DAILY Qty: 150 0RF albuterol sulfate [Proventil HFA] 90 mcg/actuation HFA aerosol inhaler 2 puff inhalation Q6H PRN (Reason: shortness of breath or wheezing) Qty: 8.5 0RF methadone 10 mg/mL concentrate 5 mg PO DAILY Patient Comments: 07/26/17: 49mg LR 04/29/17: 55mg. -BR Rx Instructions: G[facility]EN [facility] ibuprofen [Advil] 200 mg Tablet 200 mg PO Q6H PRN Discharge Instructions Instructions: Chest Pain (ED), Cocaine Abuse (ED), Low Back Strain (ED), Hypertension (ED) Additional Instructions: 1. Avoid using illicit drugs and try to quit smoking cigarettes. 2. Call your primary care provider in the morning for follow-up appointment and recheck. Tell them you are here for chest pain and we recommended that you have an outpatient stress test and possible echocardiogram. 3. Return here for any new or recurrent symptoms. Discharge Data Discharge Physician: Christy Mccloud Medical Decision Making This is a 42-year-old male with a history of opioid use disorder, who has done cocaine in the last few weeks who presents with substernal chest pain and left arm numbness and tingling. His initial EKG is reassuring but there is obvious concern for cardiac ischemia. He does have risk factors of family history tobacco use hypertension and borderline hypercholesterolemia. He did take aspirin prior to arrival. He uses Viagra but has not used it in about a week. I have discussed the interaction of nitroglycerin with Viagra with pharmacist and if he has not taken it in 24 to 48 hours there is not a risk of prolonged hypotension. I am concerned that the patient could have aortic dissection because his pain radiates to his shoulder blades and he did have some abdominal pain as well. My plan is to obtain blood work and establish an IV. He does not need any additional aspirin since he has already had 650 mg prior to arrival in the last 24 hours. We will obtain a CT of the chest abdomen and pelvis if he has an elevated D-dimer. If his D-dimer is normal I will obtain a chest x-ray. We will repeat his troponin and give him nitroglycerin. If his troponin trends upwards or his symptoms worsen we will likely admit him or possibly transfer him. We will check a urine drug screen. If it is positive for cocaine that will raise my index of suspicion for cardiac ischemia. Differential Diagnosis Differential Diagnosis: ACS, aortic dissection, esophagitis, PE, GE reflux Medical Records Medical records reviewed: Yes I reviewed the patient's medical records. Medical records narrative: As per HPI Imaging Data Radiologic Study: Imaging: CT Scan Radiologist's impression: Impression: 1. Possible dissection of the ascending thoracic aorta/type A. There is no pericardial effusion. Dissection flap not seen in the distal thoracic aorta were normal at the abdominal aorta. 2. No obvious pulmonary emboli realizing suboptimal opacification of the distal pulmonary arteries. No evidence of pulmonary infarct or pulmonary effusions. 3. Multiple subacute left rib fractures. No pneumothorax. No pleural effusions. 4. No acute findings in the abdomen or pelvis. Radiologic Study #2: Imaging: CT Scan (Repeat CTA abdomen and pelvis) Radiologist's impression: V rad impression no evidence of aortic dissection or other acute abnormality. Fatty liver and old left rib fractures incidentally noted. Lab Data Lab results reviewed: Yes I reviewed the patient's lab results. ECG Data Attestation: I personally reviewed and interpreted this ECG (s) as follows: HPI General Date/Time Provider Initiated Documentation: 05/24/23 12:47 . Information obtained by: patient, family, RN notes reviewed and old records reviewed . History of Present Illness described as mild, HPI Narrative: Time seen was 12:50 p.m. in bed 5. The patient is a 42-year-old male with a history of IVDA, who is on methadone. He states that the methadone was weaned down about a week ago. He is right-hand dominant and 2 weeks ago he was seen and treated with antibiotics after he accidentally got a nail in his left hand. He tells me that he occasionally uses cocaine and occasionally takes illicit drugs but denies doing any in the past week. He presents today with nausea and an upset stomach and left lower quadrant pain which he had yesterday and then today he developed substernal chest pain at about 1030 while at rest. He has a history of hypercholesterolemia and was on a statin which was discontinued. He does have hypertension and occasionally uses tobacco and occasionally uses cocaine. He denies any history of diabetes. He also has a family history of coronary artery disease his mother had an [place] at 75. He does not know anything about his paternal family history. He describes the pain as a pushing sensation which radiates down the left arm and is in the left neck. At maximum it was 4 out of 10 in severity on arrival it was 2 out of 10. His chest pain was associated with severe diaphoresis and shortness of breath. He also states that he had 1 episode of vomiting. He denies any diarrhea or foreign travel. He has been on antibiotics for the nail in his left hand. He has no prior history of coronary artery disease. He did take 2 regular aspirin and [place]Muddy over the last 24 hours. He did receive his methadone today and he is on 45 mg which was decreased about a week ago. He denies any pleuritic chest pain. He denies any previous similar episodes. He denies any other aggravating or alleviating factors. He did have left arm numbness and tingling Related Data Home Medications Medication Instructions Recorded Confirmed albuterol sulfate 90 mcg/actuation 2 puff inhalation Q6H PRN 07/22/22 05/24/23 aerosol inhaler (Proventil HFA) shortness of breath or wheezing #8.5 grams atorvastatin 80 mg tablet 80 mg PO QPM #90 tabs 08/30/22 05/24/23 ibuprofen 200 mg tablet (Advil) 200 mg PO Q6H PRN 02/03/23 05/24/23 fluticasone propionate 50 2 spray intranasal DAILY PRN 02/25/23 05/24/23 mcg/actuation nasal allergy symptoms #18.2 mL spray,suspension metoprolol succinate 50 mg 50 mg PO DAILY #90 tabs 02/25/23 05/24/23 tablet,extended release 24 hr omeprazole 40 mg capsule,delayed 40 mg PO DAILY #90 tab-caps 02/25/23 05/24/23 release sildenafil 100 mg tablet (Viagra) 100 mg PO As Directed #6 tab-caps 02/25/23 05/24/23 methadone 10 mg/mL oral concentrate 5 mg PO DAILY 04/05/23 05/24/23 testosterone 1 % (50 mg/5 gram) 1 packet transdermal DAILY #150 04/05/23 05/24/23 transdermal gel packet grams Previous Rx's Medication Instructions Recorded albuterol sulfate 90 mcg/actuation 2 puff inhalation Q6H PRN 07/22/22 aerosol inhaler (Proventil HFA) shortness of breath or wheezing #8.5 grams atorvastatin 80 mg tablet 80 mg PO QPM #90 tabs 08/30/22 fluticasone propionate 50 2 spray intranasal DAILY PRN 02/25/23 mcg/actuation nasal allergy symptoms #18.2 mL spray,suspension metoprolol succinate 50 mg 50 mg PO DAILY #90 tabs 02/25/23 tablet,extended release 24 hr omeprazole 40 mg capsule,delayed 40 mg PO DAILY #90 tab-caps 02/25/23 release sildenafil 100 mg tablet (Viagra) 100 mg PO As Directed #6 tab-caps 02/25/23 testosterone 1 % (50 mg/5 gram) 1 packet transdermal DAILY #150 04/05/23 transdermal gel packet grams Allergies Allergy/AdvReac Type Severity Reaction Status Date / Time amlodipine Allergy Intermediate Drowsiness, Verified 05/24/23 12:33 chest pain lisinopril AdvReac Intermediate Cough Verified 05/24/23 12:33 General Stated Complaint: Chest Pain DUNG: 2 Review of Systems Narrative: see hpi Constitutional Constitutional: Reports excessive sweating and Denies fever(s) Comments: The patient denies any complications from his history of IV drug use Eyes Eyes: Reports system reviewed and no additional complaints, except as documented and Denies blurry vision ENT Ears, Nose, Mouth, and Throat: Denies dysphagia and Reports dry mouth Comments: No cold symptoms. No sore throat or earache Cardiovascular Cardiovascular: Reports as per HPI, Reports chest pain, Reports diaphoresis, Reports rapid heart rate, Denies leg edema, Reports lightheadedness and Reports dyspnea Respiratory Respiratory: Denies chest congestion, Denies cough, Denies hemoptysis, Denies pain on inspiration and Reports dyspnea Gastrointestinal Gastrointestinal: Reports as per HPI, Reports abdominal pain, Denies hematochezia, Denies dysphagia, Denies diarrhea, Reports nausea, Reports vomiting and Denies hematemesis Comments: The patient tells me he has had elevated liver enzymes. Genitourinary Genitourinary: Reports system reviewed and no additional complaints, except as documented Comments: The patient took Viagra last week Musculoskeletal Musculoskeletal: Reports as per HPI Comments: The patient had an accidental puncture wound to the L hand 2 weeks ago Neurologic Neurologic: Reports system reviewed and no additional complaints, except as doc umented Comments: Numbness and tingling in the left arm with chest pain. Psychiatric Psychiatric: Reports as per HPI, Reports anxiety, Reports panic attacks, Denies homicidal ideation and Denies suicidal ideation Endocrine Endocrine: Reports as per HPI and Reports excessive sweating Hematologic/Lymphatic Hematologic/Lymphatic: Reports system reviewed and no additional complaints, except as documented Allergic/Immunologic Comments: The patient states he is allergic to amlodipine and lisinopril [facility] All Active Problems (Updated 05/24/23 @ 19:25 by Christy Mccloud MD) Chest pain (Acute) Essential hypertension (Acute 04/12/17) Gastroesophageal reflux disease without esophagitis (Acute 03/30/16) Smoker (Chronic) Testosterone deficiency in male (Acute) Hyperlipidemia (Acute) Elevated liver function tests (Acute) Family history of coronary artery disease in mother (Acute) At age 73 Low back pain (Acute) Opiate dependence (Acute) hx of IVDA-Dc/d in 2017, on methadone with [facility] Status post medial meniscectomy of left knee (Acute 12/16/21) s/p left knee arthroscopy with revision partial medial meniscectomy and lateral release 02/03/23 Chondromalacia, left knee (Acute) 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) Pain of both breasts (Acute) Dysuria (Acute) Medical History Allergic rhinitis Boil Change in stool caliber Depressive disorder Diarrhea Episodic cluster headache, not intractable (07/26/17) Foot laceration Hyperhidrosis Lipoma of forearm Lymphadenopathy of head and neck region Multifocal pneumonia Murmur, cardiac Congenital Right knee pain Soft tissue mass 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 Paternal Grandmother Breast cancer Sister No problems noted. Social History Smoking/Tobacco Use Status: Current every day Tobacco Type: smokeless tobacco Tobacco: How many years used: 20 Smokeless tobacco user: chewing tobacco Quit status: considering quitting Second Hand Exposure: Yes Smoking risk assessment performed?: Yes Alcohol Intake: current Alcohol Intake frequency: a few times a month Alcohol type: hard liquor Drug use: Current Sobriety Substance use type: former substance user and other Details: Methadone rx Details: methadone client-Hx of IVDA clean since 2012 Caregiver/Support person: No Household members: family and other Details: Mother Housing: house Communication Needs: None Do you need help understanding health information?: Never current occupation: [employer] Pets and animals: Yes Pets and animals: dog(s) Do you think of yourself as: straight/heterosexual Current gender identity: male What is your relationship status?: never How often do you talk on the phone with friends or family?: once per week How often do you get together with friends or relatives?: once per week How often do you attend uatsdin or moravian services?: decline to answer Do you belong to any clubs or organized social groups?: no Panel score (0-1 are the most socially isolated patients): 0 What type of physical activity do you participate in: none Frequency: does not exercise Korina/Episcopalian: None Special korina needs: No Seatbelt use: always Helmet use: Yes Helmet use: always Drive intox or ride w/intox lifter/driver: No Do you feel safe at home: Yes Do you feel safe in your relationship?: Yes Exam Narrative Exam Narrative: The patient is a well-developed well-nourished male who is alert and oriented. He does not appear in acute physical distress but is anxious and slightly diaphoretic. He does not appear clinically intoxicated Const General: cooperative, healthy appearing, comfortable, no acute distress, well developed, well groomed, anxious, diaphoretic and well hydrated Nutritional Appearance: average body habitus and well nourished Orientation: alert, awake and oriented x3 Other: The patient appeared anxious and diaphoretic but did not appear clinically intoxicated. HENMT Head: normal to inspection, normocephalic and atraumatic Ears: hearing grossly normal bilaterally and external ears normal General nose exam: external nose normal, nares normal and no nasal discharge Face and sinus: normal facial exam, sinuses nontender and face symmetric Mouth: oral mucosae normal, lip normal, tongue normal, oropharynx normal, moist mucous membranes and other (Normal phonation. The patient is handling secretions.) Throat: posterior oropharynx normal and uvula midline Eyes General: appearance normal, both eyes and all related structures Eyelids: eyelids normal Conjunctivae: conjunctivae normal Sclera: sclerae normal Cornea: corneas normal Pupils: PERRL EOM: EOM intact bilaterally and No nystagmus Other: The patient had recent Mohs surgery of the forehead. Neck Neck: normal visual inspection, full ROM, no lymphadenopathy, no meningeal signs, trachea midline and supple Lymphatic: no lymphadenopathy noted Chest Chest: normal inspection of the chest Resp Effort & Inspection: normal respiratory effort, able to speak in complete sentences, no audible wheezes, no nasal flaring, no respiratory distress, no retractions, no stridor, not tachypneic, no tracheal deviation, no use of accessory muscles, No prolonged expiratory phase and other (Normal inspiratory to expiratory ratio.) Auscultation: clear to auscultation bilaterally, no rales, no rhonchi, no wheezes and no rubs Tactile Fremitus: tactile fremitus absent Cardio Jugular venous pressure: no JVD Palpation: normal PMI Rate: regular rate Rhythm: regular rhythm Heart Sounds: S1 normal, S2 normal, no gallops, no murmurs and no rubs Pulses: dorsalis pedis present GI Inspection: normal to inspection and non-distended Palpation: soft, no hepatosplenomegaly, no guarding and nontender Percussion: normal to percussion Auscultation: normal bowel sounds General: No CVA tenderness Back/Spine/Pelvis Back: no CVA tenderness and No back tenderness Cervical Spine: normal cervical lordosis, cervical ROM normal, No cervical muscular tenderness, No pain with cervical ROM, No cervical spinal tenderness and No step off deformity Thoracic/Lumbar Spine: thoracic and lumbar spine normal to inspection, No thoracic spinal tenderness and No lumbar spinal tenderness Pelvis: no pain with anterior-posterior compression and no pain with lateral compression Skin General skin exam: no rashes or lesions noted, turgor normal, no petechiae, no purpura and other (Skin is normal for ethnicity.) Lesions: no lesions Rashes: no rashes Nails: other Other: The patient does not have evidence of prolonged IV drug use. Neuro General: patient alert, patient awake, patient oriented x3, moves all extremities, no meningeal signs, no focal motor deficits and CN's II-XI intact bilaterally Cranial Nerves: CN's II-XI intact bilaterally, PERRL, accommodation normal, EOM intact bilaterally, no nystagmus, facial strength normal, tongue midline, hearing normal and no nystagmus Cognition: normal cognition Speech: speech normal Gait: normal gait Motor: muscle tone normal throughout and strength 5/5 throughout Sensory Exam: no sensory deficits noted Extrem General: normal to inspection, full ROM, capillary refill normal, no clubbing, cyanosis or edema and no calf tenderness Psych Appearance: grossly normal Affect: normal affect Attitude: cooperative Thought Process: normal Thought Content: normal Insight: insight good Judgment: judgment good Other: The patient appears to have capacity make medical decisions. Course Dr. Samuels asked that Carmita read the CT to see if there is any evidence of dissection. Cass hurtado has read the CT is negative negative and I will update the patient and discharge him home. Reevaluation(s) Time: 19:19 Reevaluation: Patient is improved. He felt very anxious when I was explaining that we are repeating his CTA to rule out dissection. He is denying any recurrent pain. I have advised him to avoid cocaine and to follow-up with his primary care provider. Consultations Consultation #1: Dr. Chiki Samuels, radiology. He was concerned that the patient could have a type II dissection but the study was not definitive. He suggested that the patient have a repeat study. CTA of the chest abdomen and pelvis to rule out dissection. Dr. Samuels called the radiology transcriptionist to notify them of how he wanted CT completed. I notified the patient and his mother of the findings and the need for repeat study. He did have normal renal function and Dr. Samuels was aware he had already received 1 dose of IV contrast Vital Signs Vital signs: Vital Signs Temperature 36.2 C L 05/24/23 12:30 Pulse 96 H 05/24/23 12:30 Respiratory Rate 20 05/24/23 12:30 Blood Pressure 182/102 H 05/24/23 12:30 Pulse Oximetry 97 05/24/23 12:30 Temperature 36.2 C L 05/24/23 12:30 Temperature Source Temporal Artery Scan 05/24/23 12:30 Pulse 96 H 05/24/23 12:30 Respiratory Rate 20 05/24/23 12:30 Respiratory Effort Short of Breath 05/24/23 12:32 Blood Pressure 182/102 H 05/24/23 12:30 Blood Pressure Position Sitting 05/24/23 12:30 Pulse Oximetry 97 05/24/23 12:30 Oxygen Delivery Method Room Air 05/24/23 12:30 Oxygen Flow Rate 0 05/24/23 12:30 Pain Level 4 05/24/23 12:30 Lab/Test Results Lab/Test Results: Mild leukocytosis normal H&H, elevated D-dimer. Mild hyponatremia, mild elevated transaminases. Normal initial troponin and BNP Critical Care Time Critical Care Time Total Critical Care Time: 63 Attestation: This is time at the bedside, consultations with radiology. Review of labs and EKGs. PAWSS Have you Been Recently Intoxicated or Drunk Within the Last 30 days?: No Have you Ever Experienced Previous Episodes of Alcohol Withdrawal?: No Have you ever Experienced Withdrawal Seizures?: No Have you ever Experienced Delirium Tremens(DT)s?: No Have you ever undergone Alcohol Rehabilitation Treatment (i.e, inpt ot outpatient treatment programs)?: No Have you ever Experienced Blackouts?: No Have you ever Combined Alcohol with other Downers within the last 90 days?: No Have you ever Combined Alcohol with any other Substance of Abuse during the last 90 days?: No Result: 0
[2023-05-24 13:16] LABS: Abs Immature Grans 0.12 10^3/uL (0.0-0.06); Absolute Eosinophil Count 0.31 10^3/uL (0.0-0.7); Absolute Monocyte Count 0.55 10^3/uL (0.1-0.8); Basophils % 0.5; Eosinophils % 2.8; HGB 13.7 g/dL (13.5-17.5); Immature Grans % 1.1; MCH 29.1 pg (27.0-33.0); MCHC 34.3 % (32.0-36.0); MCV 85 fL (80-95); MPV 9.4 fL (8.0-11.0); Neutrophils % 71.6; Platelet Count 244 10^3/uL (130-400); RBC 4.71 10^6/uL (4.36-5.78); RDW-SD 39.8 fL; WBC 11.03 10^3/uL (4.4-10.8)
[2023-05-24 13:20] LABS: Absolute Basophil Count 0.06 10^3/uL (0.0-0.2)
[2023-05-24 13:36] LABS: *AMPHETAMINES SCREEN URINE Negative (Negative); *BARBITURATES SCREEN URINE Negative (Negative); *BENZODIAZEPINES SCREEN URINE Negative (Negative); Cannabinoids THC Negative (Negative); Cocaine Screen,Urine Negative (Negative); METHADONE URINE SCREEN Positive (Negative); OPIATES URINE SCREEN Negative (Negative)
[2023-05-24 13:43] LABS: Tricyclic Antidepressants Negative (Negative)
[2023-05-24 13:50] LABS: PTT Activated 26.1 sec (21.5-31.9)
[2023-05-24 13:54] LABS: Prothrombin Time < 8.9 sec (9.3-11.0)
[2023-05-24 13:55] LABS: INR < 0.9 (0.9-1.1)
[2023-05-24 14:04] LABS: D-Dimer 679 ng/mlFEU (<500)
[2023-05-24 14:06] LABS: ALT 123 U/L (16-63); AST 49 U/L (15-37); Albumin 3.4 g/dL (3.4-5.0); Alkaline Phosphatase 110 U/L (46-116); Anion Gap 7.5 mmol/L (3-11); BUN 16 mg/dL (7-18); Bilirubin, Total 0.3 mg/dL (0.2-1.0); CO2 28.5 mmol/L (21.0-32.0); CREATININE 1.1 mg/dL (0.70-1.30); Calcium 9.4 mg/dL (8.5-10.1); Chloride 98 mmol/L (98-107); Estimated GFR 85.42 (mL/min/1.73m2); Glucose 128 mg/dL (74-106); Magnesium 1.8 mg/dL (1.8-2.4); NT-proBNP 99 pg/mL (<300); Potassium 3.5 mmol/L (3.5-5.1); Sodium 134 mmol/L (136-145); Total Protein 7.4 g/dL (6.4-8.2); Troponin I < 50 ng/L (<or=60)
--- NOTE | 2023-05-24 15:30 | DI.CT_ITS ---
Exam(s) CT CHEST PE ABD PELVIS W EXAM: CT CHEST PE ABD PELVIS W CLINICAL HISTORY: CP and abdominal pain elevated d dimer. TECHNIQUE: Imaging Protocol: Axial CT angiography was performed with multi-slice acquisition and m ulti-planar and/or 3D reconstructions. CONTRAST MATERIAL: Intravenous: Omnipaque 350 Contrast volume:100 ml Oral: None COMPARISON: CT CT CHEST PE CTA from 03/15/2023 FINDINGS: CHEST: PULMONARY ARTERIES: Suboptimal injection for evaluation of the distal most pulmonary arterial tree. However, there are no obvious intraluminal filling defects to suggest presence of acute pulmonary emb elida. There are no intra-arterial filling defects to suggest the presence of acute pulmonary emboli. LUNGS: Mild increased markings in the lung bases. No prominent infiltrates. No pleural effusions. No pneumothorax. No focal findings in the trachea and mainstem bronchi.. MEDIASTINUM: There is no hilar nor mediastinal adenopathy. CARDIAC: Heart size upper normal. No pericardial effusion. Caliber thoracic aorta normal. There is suggestion of aortic dissection/type A no pericardial effusion. Dissection flap is not seen in the distal arch and descending thoracic aorta OSSEOUS: Multiple subacute left rib fractures noted. Involving the 3rd through 6th ribs, inclusive.. ABDOMEN: There is no ascites. LIVER: Liver is hypodense implying steatosis. No discrete focal hepatic lesions. No dilated intrahe patic ducts. GALLBLADDER/BILIARY: No obvious gallbladder pathology. CBD is not dilated. PANCREAS: No evidence of pancreatic mass nor dilatation of the pancreatic duct. SPLEEN: Spleen is not enlarged. There are no intrasplenic lesions. Splenic and portal veins are briones nt. ADRENALS: There are no significant adrenal masses. KIDNEYS:No cysts evident. No calculi nor hydronephrosis. No solid renal masses. ABDOMINAL AORTA: Abdominal aorta is not enlarged. There is no dissection flap seen in the abdominal aorta and iliac vessels. LYMPH NODES: There is no retroperitoneal or para-aortic adenopathy. ABDOMINAL WALL/GI: No evidence of significant anterior abdominal wall hernia. No ischemic appearing bowel loops. No bowel obstruction. PELVIS: LYMPH NODES: There is no intrapelvic nor inguinal adenopathy. GI: Appendix surgically absent.No evidence of sigmoid diverticulitis. URINARY BLADDER: No calculi nor masses evident REPRODUCTIVE: Prostate not enlarged. Seminal vesicles unremarkable. OSSEOUS: No significant osseous lesions. IMPRESSION: 1. Possible dissection of the ascending thoracic aorta/type A. There is no pericardial effusion. Di ssection flap not seen in the distal thoracic aorta at nor in the abdominal aorta. 2. No obvious pulmonary emboli realizing suboptimal opacification of distal pulmonary arteries. No e vidence of pulmonary infarct nor pleural effusions. 3. Multiple subacute left rib fractures. No pneumothorax. No pleural effusions. 4. No acute findings in the abdomen and pelvis. Discussed with ER physician. RADIATION DOSE DELIVERED: 2,753.23mGy.cm Total DLP DATA REPOSITORY: All CT scans at this facility are submitted to the National Radiology Data Registry (NRDR) Dose Index Registry (DIR) with the [employer] (A[employer]). RADIATION OPTIMIZATION: All CT scans at this facility use at least one of these dose optimization te chniques: automated exposure control; mA and/or kV adjustment per patient size (includes targeted exa ms where dose is matched to clinical indication); or iterative reconstruction.
[2023-05-24] MEDS: Normal Saline - Diluent 50 ML VIAL IJ ×2 (15:55→18:19)
[2023-05-24] MEDS: Omnipaque 350 MG/ML 100 ML BTL IJ ×2 (15:56→18:18)
[2023-05-24 17:09] LABS: Troponin I < 50 ng/L (<or=60)
--- NOTE | 2023-05-24 17:45 | DI.CT_ITS ---
Exam(s) CT THORAX ABD/PEL CTA EXAM: CT THORAX ABD/PEL CTA CLINICAL HISTORY: RULE OUT AORTIC DISSECTION. TECHNIQUE: Imaging Protocol: Axial computed tomography images with coronal and sagittal reformatted images were created and reviewed CONTRAST MATERIAL: Intravenous: Omnipaque 350 Contrast volume:100 ml Oral: None COMPARISON: CT CHEST WITH CONTRAST from 05/12/[address] CHEST PE CTA from 01/29/[address] CHEST PE ABD PELVIS W from 05/24/2023 FINDINGS: CHEST: AORTA: Findings in the ascending thoracic aorta of the appearance of artifact. No true dissection fl ap evident. Diameter thoracic aorta is normal. No pericardial effusion. Descending thoracic aorta appears unremarkable. Abdominal aorta unremarkable. Aortoiliac segments are common femoral arteries are unremarkable. LUNGS: There is a noncalcified subpleural 6 mm nodule in the posterior basal segment of the left lowe r lobe. Smaller 3 millimeter nodule is noted posteriorly in the right lower lobe. No focal findings in the upper lobes nor in the right middle lobe nor in the lingular segment of the left lung. There are no pleural effusions. No lung contusion. No pneumothorax.. No significant focal findings in t he trachea and mainstem bronchi. No bronchiectasis. MEDIASTINUM: There is no hilar nor mediastinal adenopathy. Visualized thyroid unremarkable. CARDIAC: Heart size is normal. There is no pericardial effusion. No shift of the interventricular s eptum. No central pulmonary emboli. OSSEOUS: There are subacute appearing fractures of the left 3rd, 4th, 5th, and 6th ribs. No right ri b fractures. ABDOMEN: There is no evidence of abdominal aortic aneurysm nor dissection.There is no aneurysmal dilatation of the common iliac arteries.The celiac and superior mesenteric arteries are patent.Inferior mesenteric artery is patent. There are no ischemic appearing bowel loops. Renal arteries are patent. No sign ificant stenosis nor fibromuscular dysplasia. Kidneys exhibit normal size. There is no ascites. LIVER: Liver is quite hypodense implying significant steatosis. There are no discrete focal hepatic lesions evident. No dilated intrahepatic ducts. GALLBLADDER/BILIARY: No obvious gallbladder pathology. CBD is not dilated. PANCREAS: No evidence of pancreatic mass nor dilatation of the pancreatic duct. SPLEEN: Spleen is not enlarged. There are no intrasplenic lesions. Splenic and portal veins are briones nt. ADRENALS: There are no significant adrenal masses. KIDNEYS: No cysts evident. No calculi nor hydronephrosis. No solid renal masses. ABDOMINAL AORTA: The abdominal aorta is not enlarged. LYMPH NODES: There is no retroperitoneal nor para-aortic adenopathy. No obvious mesenteric masses. ABDOMINAL WALL: No evidence of significant anterior abdominal wall hernia. GI: There is no evidence of bowel obstruction, free air, nor abscess. PELVIS: LYMPH NODES: There is no intrapelvic nor inguinal adenopathy. GI: Appendix is surgically absent.No significant sigmoid diverticular disease. URINARY BLADDER: No calculi nor masses evident REPRODUCTIVE: Prostate size not enlarged. Seminal vesicles unremarkable. OSSEOUS: No significant osseous lesions. No fractures IMPRESSION: 1. No evidence of aortic dissection nor pericardial effusion. No aneurysms evident. 2. No central pulmonary emboli evident. 3. Hepatic steatosis. 4. Multiple subacute appearing left rib fractures evident involving the left 3rd through 6th ribs, in clusive. These healing fractures are not displaced. No evidence of lung contusion, pleural effusion , nor pneumothorax. 5. Incidentally noted is a 6 millimeters subpleural nodule in the left lower lobe and a 3 millimeter nodule in the right lower lobe. The left lower lobe nodules unchanged from CT scan of April 2016 a nd therefore benign. The left lower lobe 3 mm nodule also appears to been previously present in 2016 , and therefore benign. No new nodules evident. RADIATION DOSE DELIVERED: 1,459.25mGy.cm Total DLP DATA REPOSITORY: All CT scans at this facility are submitted to the National Radiology Data Registry (NRDR) Dose Index Registry (DIR) with the [employer] (A[employer]). RADIATION OPTIMIZATION: All CT scans at this facility use at least one of these dose optimization te chniques: automated exposure control; mA and/or kV adjustment per patient size (includes targeted exa ms where dose is matched to clinical indication); or iterative reconstruction.
[2023-05-24] MEDS: Normal Saline 1,000 ML 2000 ML IV (18:00)
--- NOTE | 2023-05-24 19:01 | DI.VRAD_ITS ---
PROCEDURE INFORMATION: Exam: CTA Chest With Contrast CTA Abdomen and Pelvis With Contrast Exam date and time: 05/24/2023 6:04 PM Age: 42 years old Clinical indication: Other: Rule out aortic dissection; Abdominal pain TECHNIQUE: Imaging protocol: Computed tomographic angiography of the chest with contrast. Exam focused on the arteries. Computed tomographic angiography of the abdomen and pelvis with contrast. Exam focused on the arteries. 3D rendering (Not supervised by radiologist): MIP and/or 3D reconstructed images were created by the technologist. Radiation optimization: All CT scans at this facility use at least one of these dose optimization techniques: automated exposure control; mA and/or kV adjustment per patient size (includes targeted exams where dose is matched to clinical indication); or iterative reconstruction. Contrast material: OMNIPAQUE 350; Contrast volume: 100 ml; Contrast route: INTRAVENOUS (IV); COMPARISON: CT CHEST PE ABD PELVIS W 05/24/2023 3:55 PM FINDINGS: VASCULATURE: Pulmonary arteries: Normal. No pulmonary emboli. Aorta: No aortic aneurysm. No aortic dissection. Celiac trunk and mesenteric arteries: No occlusion or significant stenosis. Renal arteries: No occlusion or significant stenosis. Right iliac arteries: No occlusion or significant stenosis. Left iliac arteries: No occlusion or significant stenosis. CHEST: Lungs: Unremarkable. No consolidation. No masses. Pleural spaces: Unremarkable. No pneumothorax. No pleural effusion. Heart: Unremarkable. No cardiomegaly. No pericardial effusion. ABDOMEN AND PELVIS: Liver: Liver appears diffusely fatty. No focal hepatic abnormality. Gallbladder and bile ducts: Unremarkable. No calcified stones. No ductal dilation. Pancreas: Unremarkable. No mass. No ductal dilation. Spleen: Unremarkable. No splenomegaly. Adrenal glands: Unremarkable. No mass. Kidneys and ureters: Unremarkable. No solid mass. No hydronephrosis. Stomach and bowel: Unremarkable. No obstruction. No mucosal thickening. Appendix: No evidence of appendicitis. Intraperitoneal space: Unremarkable. No free air. No significant fluid collection. Urinary bladder: Unremarkable. No mass. Reproductive: Unremarkable as visualized. Lymph nodes: Unremarkable. No enlarged lymph nodes. 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 No acute fracture. Soft tissues: Unremarkable. IMPRESSION: No evidence of aortic dissection or other acute abnormality. Fatty liver and old left rib fractures incidentally noted. Dictated and Authenticated by: Aditya Maurer MD. Ordering:ANNEMARIE Harrison MD
--- NOTE | 2023-05-25 08:13 | NUR.NOTE ---
Accessed pt chart to determine number of EKG orders. The EKG in ordered status was cancelled.Nursing Note:
== END 2023-05-24 19:30 | disposition home or self-care (01) ==
PROVIDERS: Emergency Provider Emergency Medicine Emergency Medical Services; PCP Nurse Practitioner Family
DX: R07.9 Chest pain, unspecified (principal); M54.50 Low back pain, unspecified; I10 Essential (primary) hypertension; R11.0 Nausea; R91.8 Other nonspecific abnormal finding of lung field; S22.42XD Multiple fractures of ribs, left side, subsequent encounter for fracture with routine healing; F11.20 Opioid dependence, uncomplicated; F17.210 Nicotine dependence, cigarettes, uncomplicated
CPT/HCPCS: 36415; 71275; 74177; 80053; 80307; 93005; 96360; 99285; 74174; 83735; 83880; 84484; 85025; 85379; 85610; 85730; 93010; 99284; J3490

== ENCOUNTER 2023-06-08 03:06 | Outpatient (CLI) | payer MEDICAID, SELFPAY ==
[2023-06-13 16:08] LABS: Testosterone, Total 394 ng/dL (240-950)
== END 2023-06-08 03:07 | disposition home or self-care (01) ==
LOC: LBO 03:06
PROVIDERS: PCP Nurse Practitioner Family; Visit Provider Nurse Practitioner Family
DX: E29.1 Testicular hypofunction (principal)
CPT/HCPCS: 36415; 84403

== ENCOUNTER → 2023-10-19 00:45 | Outpatient (CLI) | payer OTHER, SELFPAY ==
--- NOTE | 2023-10-19 07:30 | DI.MRI_ITS ---
Exam(s) MR LOWER JOINT LT WO EXAM: MR LOWER JOINT LT WO CLINICAL HISTORY: L KNEE PAIN,acute lat meniscal injury,S83.8x2a sprain. TECHNIQUE: Multiplanar multisequence MRI was performed. COMPARISON: MR MR LOWER JOINT LT WO from 11/13/2021 MR MR LOWER JOINT LT WO from 09/14/2022 CR XR KNEE LT 3V AP,LAT,ANAHI from 05/10/2023 FINDINGS: The exam is limited by motion. BONES: There is no fracture or contusion pattern. JOINTS: A small joint effusion is present. No gross cartilage defect. TENDONS: Extensor mechanism: Unremarkable. Medial retinaculum: Unremarkable. Lateral retinaculum: Unremarkable. Popliteus: Unremarkable. MUSCLES: Unremarkable. MENISCI: The medial meniscus is somewhat diminutive and peripherally displaced. The body is blunted, similar appearance to prior. Arm small amount of high signal in the posterior horn. The meniscus difficult to evaluate due to excessive motion. The lateral meniscus is unremarkable. No parameniscal cyst. SOFT TISSUES: Unremarkable. Previously noted tiny Patterson's cyst no longer seen. LIGAMENTS: Anterior Cruciate: Unremarkable. Posterior Cruciate: Unremarkable. Medial Collateral:Unremarkable. Lateral Collateral: Unremarkable. IMPRESSION: Extremely limited exam due to motion. The menisci are difficult to evaluate. Diminutive posterior horn and body of the medial meniscus, likely reflecting postsurgical changes. S mall amount of high signal in the posterior horn, similar to prior. No evidence of tendon or ligament tear. DATA REPOSITORY:
== END ==
PROVIDERS: PCP Nurse Practitioner Family; Visit Provider Student in an Organized Health Care Education/Training Program
DX: S83.8X2A Sprain of other specified parts of left knee, initial encounter (principal); X58.XXXA Exposure to other specified factors, initial encounter
CPT/HCPCS: 73721

== ENCOUNTER 2024-02-29 12:15 | Outpatient (REF) | payer MEDICAID, SELFPAY ==
[2024-02-29 21:09] LABS: ALT 65 U/L (16-63); AST 29 U/L (15-37); Albumin 3.9 g/dL (3.4-5.0); Alkaline Phosphatase 110 U/L (46-116); Anion Gap 9.8 mmol/L (3-11); BUN 17 mg/dL (7-18); Bilirubin, Total 0.35 mg/dL (0.2-1.0); CO2 29.2 mmol/L (21.0-32.0); Calculated LDL 166 mg/dL (<100); Chloride 98 mmol/L (98-107); Cholesterol 275 mg/dL (<200); Estimated GFR 95.18 (mL/min/1.73m2); Glucose 121 mg/dL (74-106); HDL Cholesterol 44 mg/dL (40-60); Potassium 4.5 mmol/L (3.5-5.1); Sodium 137 mmol/L (136-145); Total Protein 7.4 g/dL (6.4-8.2); Triglyceride 327 mg/dL (<150)
[2024-02-29 21:10] LABS: Hemoglobin A1C 6.3 % (<5.7)
== END 2024-02-29 12:16 | disposition home or self-care (01) ==
LOC: LBN 12:15
PROVIDERS: PCP Nurse Practitioner Family; Visit Provider Nurse Practitioner Family
DX: R73.9 Hyperglycemia, unspecified (principal); E78.5 Hyperlipidemia, unspecified; I10 Essential (primary) hypertension
CPT/HCPCS: 80053; 80061; 83036

== ENCOUNTER 2025-03-14 02:56 | Outpatient (CLI) | payer MEDICAID, SELFPAY ==
[2025-03-14 12:50] LABS: Hemoglobin A1C 5.5 % (<5.7)
[2025-03-14 12:58] LABS: ALT 38 U/L (16-63); AST 14 U/L (15-37); Albumin 4.0 g/dL (3.4-5.0); Alkaline Phosphatase 103 U/L (46-116); Anion Gap 8.0 mmol/L (3-11); BUN 20 mg/dL (7-18); Bilirubin, Total 0.4 mg/dL (0.2-1.0); CO2 27.0 mmol/L (21.0-32.0); Calcium 9.9 mg/dL (8.5-10.1); Calculated LDL 180 mg/dL (<100); Chloride 100 mmol/L (98-107); Cholesterol 266 mg/dL (<200); Estimated GFR 111.22 (mL/min/1.73m2); Glucose 106 mg/dL (74-106); HDL Cholesterol 52 mg/dL (>or=40); Potassium 4.5 mmol/L (3.5-5.1); Sodium 135 mmol/L (136-145); Total Protein 7.7 g/dL (6.4-8.2); Triglyceride 170 mg/dL (<150)
[2025-03-15 09:21] LABS: HIV-1/2 Ag & Ab Screen Negative (Negative)
[2025-03-15 09:24] LABS: Syphilis Serology (RPR) Negative (Negative)
[2025-03-15 09:32] LABS: Hepatitis C Ab w Rflx HCV PCR Negative (Negative)
[2025-03-15 11:17] LABS: HBs Antibody, Quant 10.7 mIU/mL (See Note); Hepatitis B Surface Antigen Negative (Negative)
[2025-03-15 13:06] LABS: Chlamydia Result Negative (Negative); GC Result Negative (Negative)
== END 2025-03-14 02:57 | disposition home or self-care (01) ==
LOC: LOS 02:56
PROVIDERS: PCP Nurse Practitioner Family; Visit Provider Nurse Practitioner Family
DX: E78.5 Hyperlipidemia, unspecified (principal); Z11.3 Encounter for screening for infections with a predominantly sexual mode of transmission; R73.03 Prediabetes
CPT/HCPCS: 36415; 80053; 80061; 86704; 86706; 86803; 87340; 87389; 87491; 87591; 83036; 86592